=== PATIENT | female | born 1975 ===

== ENCOUNTER 2021-12-30 08:28 | Outpatient (CLI) | payer OTHER, SELFPAY ==
[2021-12-30 09:09] LABS: Hemoglobin A1C* 7.1 % (0-5.6)
[2021-12-30 16:02] LABS: Chloride* 104 mmol/L (96-114)
[2021-12-30 16:03] LABS: Potassium* 4.5 mmol/L (3.6-5.1); Sodium* 132 mmol/L (135-149)
[2021-12-30 16:05] LABS: Creatinine* 0.6 mg/dL (0.5-1.5); Estimated Glomerular Filt Rate 111 ml/min
[2021-12-30 16:06] LABS: Blood Urea Nitrogen* 18 mg/dL (5-24); Calcium* 8.7 mg/dL (8.4-10.6); Carbon Dioxide* 25 mmol/L (20-32); Glucose* 138 mg/dL (60-115)
== END 2021-12-30 08:29 | disposition home or self-care (01) ==
LOC: KYNREF 08:30
PROVIDERS: PCP Family Medicine; Visit Provider Nurse Practitioner Family
DX: Z01.818 Encounter for other preprocedural examination (principal); E11.9 Type 2 diabetes mellitus without complications
CPT/HCPCS: 36415; 80048; 83036

== ENCOUNTER 2022-01-09 07:00 | Day surgery (SDC) | payer OTHER, SELFPAY ==
[2022-01-09 07:37] LABS: Ur HCG Qualitative* Negative (Negative)
--- NOTE | 2022-01-09 08:29 | W.PM.NB ---
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 Images saved: Yes Medications given in 5ml increments after negative aspiration: Ropivicaine %: 0.5 mL: 20 Needle gauge: 22 Decadron (mg): 10 Precedex (mcg): 25 Patient tolerated procedure well: Yes Block Charges Block Charge (with Pro Fee): Brachial Plexus Use of Ultrasound Machine for Block: Yes- US Guidance/pain block
--- NOTE | 2022-01-09 10:58 | PM.ORPRC ---
Procedure Note Date of procedure: 01/09/22 Procedure: SURGEON: Romain Moreland MD ELECTRICIAN SUPERVISOR SUBSTATION: [place] PA-C PREOPERATIVE DIAGNOSIS: Left shoulder rotator cuff tear POSTOPERATIVE DIAGNOSIS: Left shoulder rotator cuff tear NAME OF OPERATION: Left shoulder arthroscopic subacromial decompression, mini open rotator cuff repair ANESTHESIA: Supraclavicular block plus general endotracheal ESTIMATED BLOOD LOSS: 5 mL COMPLICATIONS: None SPECIMENS: None DRAINS: None PREOPERATIVE ANTIBIOTICS: Ancef 2 grams INDICATIONS: The patient is a 46-year-old female with a history of left shoulder pain secondary to the above diagnoses. Despite appropriate non operative management, they continue to have symptoms. Operative intervention was recommended. The risks, benefits and expected outcomes were discussed in detail. These included but were not limited to: Infection, bleeding, injury to blood vessel or nerve, venous thromboembolism. All questions were answered to their satisfaction. PROCEDURE: A supraclavicular block was placed by Anesthesia. General anesthesia was administered. The patient was placed in the high beach chair position. The left shoulder was prepped and draped in the usual sterile fashion. The glenohumeral joint was infiltrated with 20 mL of normal saline with epinephrine. The posterior portal was established, the arthroscope was introduced. The anterior portal was established, Diagnostic arthroscopy was performed with findings as follows: The biceps and biceps anchor are intact. The anterior, posterior and superior labrum are normal. Articular surfaces on the humeral head and glenoid are normal. There are no loose bodies. There is a full-thickness tear of the supraspinatus. There is minimal deep surface fraying of the subscap which was debrided with the shaver. This does not result in high-grade partial-thickness tearing of the subscap. The arthroscope was placed in the subacromial space, the lateral portal was established. The Arthrex Apison was used to dissect the acromion free. The CA ligament was recessed off the anterior acromion. The acromioplasty was performed with the bur in the posterior portal. The bur was then placed in the lateral portal and the lateral and anterior aspect of the acromion were resected. Since An accessory anterolateral portal was placed. The subacromial/subdeltoid bursa was aggressively debrided. There is a full-thickness tear of the supraspinatus. Arthroscopic instruments were removed. The accessory anterolateral portal was extended proximally and distally, subcutaneous dissection was taken with electrocautery to the deltoid. The deltoid was divided in line with its fibers. The static retractor was placed. The subacromial/subdeltoid bursa was debrided with the Mullen scissors. The greater tuberosity was debrided to punctate bleeding bone using the arthroscopic bur. Two Arthrex BioComposite SwiveLock anchors were placed just off the articular surface. Bone was quite good and required the branch chief holes to be tapped. Both limbs of the FiberWire and fiber tape were passed using the scorpion. A fiber link was placed in the leading edge of the rotator cuff x2. We tied the 2 central FiberWire sutures over the rotator cuff. We then proceeded with a lateral row of SwiveLock anchors x 2 crossing the FiberTape and incorporating the FiberWire and fiber link into each lateral row anchor. This provides an anatomic, watertight repair of the rotator cuff. There is no tension on the repair with the shoulder at 0? abduction. The wound was irrigated with normal saline off the pump. The deltoid was repaired with an 0 Vicryl in an interrupted [id number] fashion. Subcutaneous tissues were closed with a 3-0 Vicryl. Skin was closed with a 3-0 Monocryl in a subcuticular fashion. A dry dressing, polar care and sling were applied. Sponge and needle counts were correct x2. The patient tolerated the procedure well. There were no apparent complications. They were carefully transferred to the hospital bed and taken to the postanesthesia care unit in satisfactory condition. PLAN: The patient will be discharged to home. No active range of motion of the shoulder will be allowed for 6 weeks postoperatively. They can work on active range of motion of the elbow, wrist and fingers. They will follow up in the office next week for a wound check and an AP and transscapular Y-view of the shoulder prior to being seen.
--- NOTE | 2022-01-09 11:37 | W.ANESCHARGE ---
Anesthesia Charges Start Date/Time Anesthesia Start Date: 01/09/22 Anesthesia Start Time: 09:24 Stop Date/Time Anesthesia Stop Date: 01/09/22 Anesthesia Stop Time: 11:28 Summary Emergency: No
--- NOTE | 2022-01-09 11:40 | W.ANESCHARGE ---
Anesthesia Charges Start Date/Time Anesthesia Start Date: 01/09/22 Anesthesia Start Time: 09:24 Stop Date/Time Anesthesia Stop Date: 01/09/22 Anesthesia Stop Time: 11:28 Summary Emergency: No
[2022-01-09 14:35] VITALS: BMI 35.0
--- NOTE | 2022-01-09 14:41 | SUR.PREOP ---
Medications Given by Francie Encinas. MAR not available. Celebrex 400mg PO @8:11 on 01/09/22 10mg Oxycodone 10mg ER @ 8:11 on 01/09/22 1000mg Tyelnol at 8:11 on 01/09/22. 100mcg Fentanyl at 8:24 on 01/09/22. 2mg Versed at 8:24 on 01/09/22. 1000 mg LR IV at 8:20 on 01/09/22.
--- NOTE | 2022-01-09 14:54 | SUR.PHASEII ---
Upon arrival to [facility] from PACU, notified of blood glucose of 244 taken in pacu. Pt very nauseated. MD notified and order for 4units of regular insulin obtained. Insulin administered subq in abdomen. Pt monitored and blood glucose rechecked at 1250, approximately 30 min after administration. Result was 248. Pt notes improved nausea symptoms. Pt alert, oriented and ambulating without issue. States she would like to go home. Ok'd with MD anesthesia to discharge patient home with the instruction to take her metformin as directed.
--- NOTE | 2022-01-26 11:25 | SUR.PHASEI ---
pacu times documented by this RN due to [facility]se downtime and scanned document in patient chart.
== END 2022-01-09 14:20 | disposition home or self-care (01) ==
PROVIDERS: PCP Family Medicine; Visit Provider Orthopaedic Surgery
PROC: (CPT 23412; principal; 2022-01-09 08:30)
DX: M75.122 Complete rotator cuff tear or rupture of left shoulder, not specified as traumatic (principal)
CPT/HCPCS: 29822; 29826; 23412; 01630; 64415; 76942; 81025; 87635; A9270; C1713; J0330; J1100; J1170; J2405; J2704; J2795; L3670

== ENCOUNTER 2022-02-06 21:52 | Emergency (ER) | payer OTHER, SELFPAY ==
[2022-02-06 22:27] VITALS: BP 104/79; PULSE 71; TEMP 36.3; O2SAT 96; BMI 34.8
--- NOTE | 2022-02-06 22:43 | ED.GENADULT ---
HPI - General Adult General Chief complaint: Extremity Pain/Injury, Upper Stated complaint: POST-OP ARM SWELLING,PAIN Time Seen by Provider: 02/06/22 22:14 History of Present Illness HPI narrative: Pt is a 46 year old diabetic who presents 4 weeks after rotator cuff surgery with 2-3 days of redness pain and swelling in the left affected arm laterally above the elbow. Pt was seen in follow up with ortho who offered reassurance but the redness and warmth has worsened. Pt also has had increased discomfort. No changes at the surgical site. No fever or chills. Blood sugars have been stable by report. Pt had an episode in the last week involving bumping her arm. She was seen by Ortho and offered reassurance. Related Data Home Medications Medication Instructions Recorded Confirmed fluticasone propionate 50 1 spray intranasal QDAY 12/26/21 02/06/22 mcg/actuation nasal spray,suspension (Flonase Allergy Relief) metformin 850 mg tablet 850 mg PO BID 12/26/21 02/06/22 albuterol sulfate 90 mcg/actuation g inhalation 12/30/21 02/06/22 aerosol inhaler (Ventolin HFA) blood sugar diagnostic (Accu-Chek #10 ea 12/30/21 02/06/22 Guide test strips) blood-glucose meter (Accu-Chek #1 ea 12/30/21 02/06/22 Guide Glucose Meter) dextroamphetamine-amphetamine 15 15 mg PO PRN 12/30/21 02/06/22 mg tablet dextroamphetamine-amphetamine 20 20 mg PO 12/30/21 02/06/22 mg tablet flash glucose sensor (FreeStyle #1 ea 12/30/21 02/06/22 Ibeth 2 Sensor kit) lancets (Accu-Chek Softclix #100 ea 12/30/21 02/06/22 Lancets) Previous Rx's Medication Instructions Recorded tizanidine 4 mg tablet 4 mg PO Q8H PRN muscle spasticity 12/26/21 #20 tabs hydrocodone 5 mg-acetaminophen 325 0.5 - 1 tab PO Q4-6H PRN pain #20 01/19/22 mg tablet tabs hydroxyzine pamoate 25 mg capsule 25 mg PO Q4H PRN pain #30 caps 02/01/22 (Vistaril) oxycodone-acetaminophen 5 mg-325 1 tab PO Q4-6H PRN pain #30 tabs 02/01/22 mg tablet (Percocet) Allergies Allergy/AdvReac Type Severity Reaction Status Date / Time latex Allergy Severe Verified 02/06/22 13:58 morphine Allergy Severe Verified 02/06/22 13:58 Sumatriptan Allergy Severe Uncoded 02/06/22 13:58 Metoclopramide Allergy Mild Uncoded 02/06/22 13:58 Nickel Allergy Mild Uncoded 02/06/22 13:58 Prochlorperazine Allergy Mild Uncoded 02/06/22 13:58 Review of Systems Status of ROS: Reports: 10 or more systems reviewed and unremarkable except as noted in History and below [facility] Medical History Chest pain History of anemia Type 2 diabetes mellitus Surgical History History of bladder suspension procedure History of cholecystectomy History of gastric bypass History of laparoscopy Status post arthroscopy of left shoulder Status post arthroscopy of left shoulder Social History Narrative: , 3 children. Live in [place]. 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 Non-smoker. No illicit drug use. Exercise formally. Smoking Status: Never smoker How often do you have a drink containing alcohol: monthly or less How often do you have six or more drinks on one occasion: Never AUDIT-C Alcohol total score: 1 Non-prescribed substance use: denies use Exam Narrative: Exam Narrative: EXAM GENERAL: Patient appears comfortable and well. EYES: No scleral icterus. THYROID: no thyroid nodules or thyromegaly. LYMPH: No supraclavicular or cervical lymphadenopathy. SKIN: Mild erythema over the lateral biceps area of the left arm. Mild swelling noted. Incision sites are clean and dry and well healed. EXT: No dependent lower extremity pedal edema. HEART: Regular rate and rhythm with no murmurs, rubs, or gallops. LUNGS: Clear to auscultation bilaterally with no crackles or wheezes. ABD: Soft, non tender, non distended. PSYCH: Good eye contact, speech is not pressured. Const: Vital Signs, click to edit/add: Vital Signs - 24 hr 02/06/22 22:27 Temperature 97.4 F L Pulse Rate [Left P ulse Oximeter] 71 Blood Pressure [Ri ght Upper Arm] 104/79 Pulse Oximetry 96 Oxygen Delivery Me thod Room Air Course Course Hospital Course: Patient seen and examined. CBC CRP blood cultures x2 basic metabolic panel and ultrasound ordered. Reevaluation(s) Reevaluation #1: Feeling fine. WBC normal and Metabolic panel largely unremarkable. CRP normal. Ultrasound negative for DVT. Time: 00:05 Consultations Consultation #1: Spoke with Ortho who recommended Keflex orally and outpt follow up. Vital Signs Vital signs: Initial Vital Signs Temperature 97.4 F L 02/06/22 22:27 Temperature Source Temporal Artery Scan 02/06/22 22:27 Pulse Rate 71 02/06/22 22:27 Blood Pressure 104/79 02/06/22 22:27 Blood Pressure Mean 87 02/06/22 22:27 Blood Pressure Position Sitting 02/06/22 22:27 Pulse Oximetry 96 02/06/22 22:27 Oxygen Delivery Method 02/06/22 22:27 Vital Signs Temperature 97.4 F L 02/06/22 22:27 Pulse Rate 71 02/06/22 22:27 Blood Pressure 104/79 02/06/22 22:27 Pulse Oximetry 96 02/06/22 22:27 Oxygen Delivery Method 02/06/22 22:27 Temperature 97.4 F L 02/06/22 22:27 Pulse Rate 71 02/06/22 22:27 Blood Pressure 104/79 02/06/22 22:27 Pulse Oximetry 96 02/06/22 22:27 Oxygen Delivery Method 02/06/22 22:27 Medical Decision Making MDM Narrative Medical decision making narrative: Concern is for infection or clot. I did rule out clot with Ultrasound. Labs are quite reasonable but I did speak with Ortho who recommended Keflex and follow up. Differential Diagnosis Differential Diagnosis: Local post op inflamation, cellulitis, DVT, bleeding Lab Data Labs: Lab Results 02/06/22 02/06/22 Range/Units 22:50 22:50 WBC 6.79 (4.50-11.00) K/uL RBC 4.52 (4.00-5.20) m/uL Hgb 13.0 (12.0-16.0) gm/dL Hct 39.2 (33.0-51.0) % MCV 87 (80-100) fL MCH 29 (26-34) pg MCHC 33 (32-36) gm/dL RDW Coeff of Jackelyn 12.6 (11.5-15.5) % Plt Count 290 (140-440) K/uL Neut % (Auto) 53.3 (42.0-72.0) % Lymph % (Auto) 32.1 (20-44) % [place] % (Auto) 8.2 (0.0-11.0) % Eos % (Auto) 5.4 (0.0-7.0) % Baso % (Auto) 0.4 (0.0-3.0) % Neut # (Auto) 3.61 (1.7-7.0) K/uL Lymph # (Auto) 2.18 (0.90-2.90) K/uL [place] # (Auto) 0.60 (0.00-0.90) K/UL Eos # (Auto) 0.37 (0.00-0.50) K/uL Baso # (Auto) 0.03 (0.00-0.30) K/uL Abs Immat Gran (auto) 0.04 (0.00-0.30) K/uL Sodium 134 L (135-149) mmol/L Potassium 4.2 (3.6-5.1) mmol/L Chloride 100 (96-114) mmol/L Carbon Dioxide 25 (20-32) mmol/L BUN 19 (5-24) mg/dL Creatinine 0.5 (0.5-1.5) mg/dL Estimated Creat Clear 99.91 Estimated GFR 116 ml/min Glucose 164 H (60-115) mg/dL Calcium 8.8 (8.4-10.6) mg/dL C-Reactive Protein 0.7 (0.5-1.0) mg/dL Discharge Plan Discharge Clinical Impression: Cellulitis Patient Disposition: Home, Self-Care Condition: Stable Instructions: Cellulitis (ED) Additional Instructions: Keflex as directed Continue current medications Follow up with Orthopedics Activity Level: No Restrictions Discharge Diet: Regular Prescriptions: No Action hydrocodone-acetaminophen 5-325 mg tablet 0.5 - 1 tab PO Q4-6H MDD 6 tabs per day PRN (Reason: pain) Qty: 20 0RF Rx Instructions: Minimize use. Wean off and discontinue as soon as possible. dextroamphetamine-amphetamine 20 mg tablet 20 mg PO dextroamphetamine-amphetamine 15 mg tablet 15 mg PO PRN albuterol sulfate [Ventolin HFA] 90 mcg/actuation HFA aerosol inhaler inhalation (DME) FreeStyle Ibeth 2 Sensor Kit See Rx Instructions .ROUTE .MEDSUPPLY Qty: 1 Label Comments: TEST FOUR TIMES DAILY Rx Instructions: As directed (DME) Accu-Chek Guide test strips Strip See Rx Instructions .ROUTE .MEDSUPPLY Qty: 10 Rx Instructions: As directed (DME) lancets [Accu-Chek Softclix Lancets] Misc See Rx Instructions .ROUTE .MEDSUPPLY Qty: 100 Rx Instructions: As directed (DME) blood-glucose meter [Accu-Chek Guide Glucose Meter] Misc See Rx Instructions .ROUTE .MEDSUPPLY Qty: 1 Label Comments: USE TO MONITOR BLOOD GLUCOSE Rx Instructions: As directed metformin 850 mg tablet 850 mg PO BID fluticasone propionate [Flonase Allergy Relief] 50 mcg/actuation spray,suspension 1 spray intranasal QDAY Rx Instructions: administer into each nostril tizanidine 4 mg tablet 4 mg PO Q8H PRN (Reason: muscle spasticity) Qty: 20 0RF oxycodone-acetaminophen [Percocet] 5-325 mg tablet 1 tab PO Q4-6H PRN (Reason: pain) Qty: 30 0RF hydroxyzine pamoate [Vistaril] 25 mg capsule 25 mg PO Q4H PRN (Reason: pain) Qty: 30 0RF Follow Up/Referrals: Oumar Childers MD [Primary Care Provider] - Stand Alone Forms: [facility] Info Instructions
--- NOTE | 2022-02-06 22:49 | CRLHL7_ITS ---
For Patients: As a result of the Century Cures Act, medical imaging exams and procedure reports are released immediately into your electronic medical record. You may view this report before your referring provider. If you have questions, please contact your health care provider. INDICATION: Pain and swelling postop. TECHNIQUE: Ultrasound venous duplex upper left extremity. Compression venous exam was performed using thomas-scale, color Doppler, and spectral Doppler imaging. COMPARISON: None. FINDINGS: The left internal jugular, subclavian, and axillary veins are patent with normal waveforms. The brachial, basilic, and cephalic veins are fully compressible. No soft tissue abnormalities. IMPRESSION: No DVT of the left upper extremity veins. Dictated by Popeye Morales MD @ 02/07/2022 12:18:12 AM (Electronically Signed)
[2022-02-06 22:59] LABS: Basophils Absolute Auto 0.03 K/uL (0.00-0.30); Basophils Percent Auto 0.4 % (0.0-3.0); Eosinophils Absolute Auto 0.37 K/uL (0.00-0.50); Eosinophils Percent Auto 5.4 % (0.0-7.0); Hematocrit 39.2 % (33.0-51.0); Immature Granulocytes Abs Auto 0.04 K/uL (0.00-0.30); Lymphocytes Absolute Auto 2.18 K/uL (0.90-2.90); Lymphocytes Percent Auto 32.1 % (20-44); Mean Corpuscular HGB Conc 33 gm/dL (32-36); Mean Corpuscular Hemoglobin 29 pg (26-34); Mean Corpuscular Volume 87 fL (80-100); Monocytes Percent Auto 8.2 % (0.0-11.0); Neutrophils Absolute Auto 3.61 K/uL (1.7-7.0); Neutrophils Percent Auto 53.3 % (42.0-72.0); Platelet Count* 290 K/uL (140-440); RDW Coefficient of Variation % 12.6 % (11.5-15.5); Red Blood Count 4.52 m/uL (4.00-5.20); White Blood Count* 6.79 K/uL (4.50-11.00)
[2022-02-06 23:04] LABS: Slide Review Reflex No
[2022-02-06 23:12] LABS: Chloride* 100 mmol/L (96-114); Potassium* 4.2 mmol/L (3.6-5.1); Sodium* 134 mmol/L (135-149)
[2022-02-06 23:14] LABS: Creatinine* 0.5 mg/dL (0.5-1.5); Est. Creatinine Clearance* 99.91; Estimated Glomerular Filt Rate 116 ml/min
[2022-02-06 23:15] LABS: Blood Urea Nitrogen* 19 mg/dL (5-24); Carbon Dioxide* 25 mmol/L (20-32)
[2022-02-06 23:16] LABS: Calcium* 8.8 mg/dL (8.4-10.6); Glucose* 164 mg/dL (60-115)
[2022-02-06 23:18] LABS: C Reactive Protein* 0.7 mg/dL (0.5-1.0)
[2022-02-07 00:05] VITALS: BP 108/76; PULSE 63; O2SAT 99
[2022-02-07] MEDS: HYDROCODONE-ACETAMIN 5-325 MG 1 TAB PO (00:15)
--- NOTE | 2022-02-07 00:20 | ED.NURSE ---
Area of redness on Pt L arm outlined by MD Gaming with surgical marker.
== END 2022-02-07 00:26 | disposition home or self-care (01) ==
PROVIDERS: Emergency Provider Internal Medicine; PCP Family Medicine
DX: L03.114 Cellulitis of left upper limb (principal)
CPT/HCPCS: 36415; 80048; 85025; 86140; 87040; 93971; 99283; 99284; A9270

== ENCOUNTER 2022-04-25 13:49 | Emergency (ER) | payer OTHER, SELFPAY ==
[2022-04-25 13:57] VITALS: BP 122/73; PULSE 98; RESP 18; TEMP 35.9; O2SAT 97; BMI 32.4
--- NOTE | 2022-04-25 14:28 | ED.GENADULT ---
HPI - General Adult General Time Seen by Provider: 14:29 Date Seen: 04/25/22 Chief complaint: Weakness Stated complaint: Dizzy, weak Time Seen by Provider: 04/25/22 14:16 Source: patient, RN notes reviewed and old records reviewed Mode of arrival: ambulatory Limitations: no limitations History of Present Illness HPI narrative: 46-year-old female who comes in with abrupt onset of generalized weakness, lightheadedness, palpitations, chills and flushing. Patient was in her usual state of health this morning although did find her blood sugar to be little bit low. Drink some juice and felt better. Blood sugar is been okay since then. After eating today she had abrupt onset of generalized weakness, and lightheadedness. She feels like her heart is beating fast but she denies any chest pain or chest tightness. No shortness of breath. Nausea but no vomiting. Chills and feels like her face is flushing. She denies abdominal pain, diarrhea, urinary symptoms. Has not taken anything for her symptoms. Distant history of COVID, recent shoulder surgery. Related Data Home Medications Medication Instructions Recorded Confirmed fluticasone propionate 50 1 spray intranasal QDAY 12/26/21 04/24/22 mcg/actuation nasal spray,suspension (Flonase Allergy Relief) albuterol sulfate 90 mcg/actuation 2 puff inhalation Q6-8H PRN 03/24/22 04/24/22 aerosol inhaler (Ventolin HFA) bronchospasm fluticasone 500 mcg-salmeterol 50 1 inh inhalation BID PRN 03/24/22 04/24/22 mcg/dose blistr powdr for inhalation Previous Rx's Medication Instructions Recorded tizanidine 4 mg tablet 4 mg PO Q8H PRN muscle spasticity 12/26/21 #20 tabs blood-glucose meter,continuous #1 ea 03/24/22 (Dexcom G6 Insight Leader misc) blood-glucose sensor (Dexcom G6 #9 ea 03/24/22 Sensor device) blood-glucose transmitter (Dexcom #1 ea 03/24/22 G6 Transmitter device) dextroamphetamine-amphetamine 15 15 mg PO QDAY #30 tabs 03/24/22 mg tablet dextroamphetamine-amphetamine 20 20 mg PO QDAY #30 tabs 03/24/22 mg tablet metformin 500 mg tablet,extended 1,000 mg PO QDAY #180 tabs 03/24/22 release 24hr semaglutide 0.25 mg or 0.5 mg (2 0.25 mg (0.2 mL) subcut QWEEK #1.5 03/24/22 mg/1.5 mL) subcutaneous pen mL injector (Ozempic) ondansetron 8 mg disintegrating 8 mg PO Q8H PRN nausea and 03/28/22 tablet vomiting #30 tabs polymyxin B sulfate 10,000 1 drp ophthalmic (eye) Q3H 5 days 04/24/22 unit-trimethoprim 1 mg/mL eye #10 mL drops (Polytrim) Allergies Allergy/AdvReac Type Severity Reaction Status Date / Time latex Allergy Severe Verified 04/24/22 13:31 morphine Allergy Severe Verified 04/24/22 13:31 Sumatriptan Allergy Severe Uncoded 04/24/22 13:31 Metoclopramide Allergy Mild Uncoded 04/24/22 13:31 Nickel Allergy Mild Uncoded 04/24/22 13:31 Prochlorperazine Allergy Mild Uncoded 04/24/22 13:31 PFSH PFS Medical History ADD (attention deficit disorder) History of anemia Type 2 diabetes mellitus Surgical History History of bladder suspension procedure History of cholecystectomy History of gastric bypass History of laparoscopy Status post arthroscopy of left shoulder (01/09/22) Status post arthroscopy of right shoulder (10/21/20) Family History Father Diabetes Paternal Grandmother Diabetes Social History Narrative: , 3 children. Lives in [place]. Lab/[place]. 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 Non-smoker. No illicit drug use. Cross fit Smoking Status: Never smoker Do you use any of these nicotine containing products: None How often do you have a drink containing alcohol: monthly or less How often do you have six or more drinks on one occasion: Never AUDIT-C Alcohol total score: 1 Non-prescribed substance use: denies use Exam Narrative: Exam Narrative: General: Well-developed and well-nourished, no acute distress Head: Atraumatic and normocephalic Eyes: Pupils are equal reactive, extraocular motions intact, conjunctiva clear ENT: External nose and ears are normal, posterior pharynx without erythema or exudate Neck: No midline cervical tenderness, full spontaneous range of motion the neck, trachea midline, no adenopathy Heart: Regular rate and rhythm no murmurs or thrills Lungs: Clear to auscultation bilaterally without wheezes or crackles Abdomen: Soft, nontender, nondistended with active bowel sounds Musculoskeletal: No tenderness, deformity, or edema Neurologic: Awake, alert, and oriented x3, no gross focal neurologic deficits, cranial nerves intact as tested Psych: Mood and affect are appropriate Skin: No rashes Const: Vital Signs, click to edit/add: Vital Signs - 24 hr 04/25/22 13:57 04/25/22 15:28 Temperature 96.7 F L Pulse Rate [Right Pulse Oximeter] 98 78 Respiratory Rate 18 18 Blood Pressure [Ri ght Upper Arm] 122/73 Pulse Oximetry 97 Oxygen Delivery Me thod Room Air Course Course Hospital Course: Patient seen and examined, prior records reviewed. Differential diagnosis includes but not limited to hypoglycemia, anemia, viral syndrome, electrolyte disturbance, dehydration, dysrhythmia. Patient presents with abrupt onset of near-syncope along with chills and flushing. On exam here, heart rate is little bit higher than expected, otherwise no acute findings on physical exam. No focal weakness to suggest acute CVA. No fall or injury. Labs, Zofran, fluids, Tylenol or ordered. Given abrupt onset of symptoms with chills and flushing, consider influenza or other viral syndrome. Reevaluation(s) Reevaluation #1: Labs are reassuring including normal basic panel, CBC within normal range, negative troponin. Urinalysis is pending. Chest x-ray personally reviewed and interpreted by me does not demonstrate any acute findings. COVID influenza are negative. Plan to discharge home with symptom treatment and close follow-up with primary care. No definite cause for weakness found today. Time: 16:23 Reevaluation #2: Urinalysis has 4+ ketones, bicarb slightly low but no anion gap, glucose is 112. Discussed findings with patient, discussed diagnosis and plan. Mild thrombocytopenia undetermined etiology. Time: 16:59 Vital Signs Vital signs: Initial Vital Signs Temperature 96.7 F L 04/25/22 13:57 Temperature Source Temporal Artery Scan 04/25/22 13:57 Pulse Rate 98 04/25/22 13:57 Respiratory Rate 18 04/25/22 13:57 Blood Pressure 122/73 04/25/22 13:57 Blood Pressure Mean 89 04/25/22 13:57 Blood Pressure Position Supine 04/25/22 13:57 Pulse Oximetry 97 04/25/22 13:57 Oxygen Delivery Method 04/25/22 13:57 Vital Signs Temperature 96.7 F L 04/25/22 13:57 Pulse Rate 98 04/25/22 13:57 Respiratory Rate 18 04/25/22 13:57 Blood Pressure 122/73 04/25/22 13:57 Pulse Oximetry 97 04/25/22 13:57 Oxygen Delivery Method 04/25/22 13:57 Temperature 96.7 F L 04/25/22 13:57 Pulse Rate 78 04/25/22 15:28 Respiratory Rate 18 04/25/22 15:28 Blood Pressure 122/73 04/25/22 13:57 Pulse Oximetry 97 04/25/22 13:57 Oxygen Delivery Method 04/25/22 13:57 Medical Decision Making Lab Data Labs: Lab Results 04/25/22 04/25/22 04/25/22 Range/Units 06:02 06:02 14:31 WBC (4.50-11.00) K/uL RBC (4.00-5.20) m/uL Hgb (12.0-16.0) gm/dL Hct (33.0-51.0) % MCV (80-100) fL MCH (26-34) pg MCHC (32-36) gm/dL RDW Coeff of Jackelyn (11.5-15.5) % Plt Count (140-440) K/uL Neut % (Auto) (42.0-72.0) % Lymph % (Auto) (20-44) % [place] % (Auto) (0.0-11.0) % Eos % (Auto) (0.0-7.0) % Baso % (Auto) (0.0-3.0) % Neut # (Auto) (1.7-7.0) K/uL Lymph # (Auto) (0.90-2.90) K/uL [place] # (Auto) (0.00-0.90) K/UL Eos # (Auto) (0.00-0.50) K/uL Baso # (Auto) (0.00-0.30) K/uL Abs Immat Gran (auto) (0.00-0.30) K/uL Imm/Tot Granulo (auto) % Sodium 137 (135-149) mmol/L Potassium 4.1 (3.6-5.1) mmol/L Chloride 104 (96-114) mmol/L Carbon Dioxide 19 L (20-32) mmol/L BUN 14 (5-24) mg/dL Creatinine 0.5 (0.5-1.5) mg/dL Estimated Creat Clear 99.91 Estimated GFR 116 ml/min Glucose 112 (60-115) mg/dL Calcium 9.8 (8.4-10.6) mg/dL Urine Color (Yellow) Urine Appearance (Clear) Urine pH (5.0-8.5) Ur Specific Asher (1.000-1.030) Urine Protein (Negative) Urine Glucose (UA) (Negative) Urine Ketones (Negative) Urine Blood (Negative) Urine Nitrite (Negative) Urine Bilirubin (Negative) Urine Urobilinogen (0.2-1.0) Ur Leukocyte Esterase (Negative) Urine RBC (0-2) Urine WBC (0-5) Ur Squamous Epith Cells (None-Few) Urine Bacteria (None) SARS-CoV-2 (PCR) Negative SARS-CoV-2 (Negative) Influenza Type A (PCR) Negative PCR FLU A (Negative) Influenza Type B (PCR) Negative PCR FLU B (Negative) POC Troponin I 0.00 L (0.01-0.04) ng/ml 04/25/22 04/25/22 Range/Units 15:05 16:07 WBC 7.71 (4.50-11.00) K/uL RBC 4.50 (4.00-5.20) m/uL Hgb 13.4 (12.0-16.0) gm/dL Hct 40.0 (33.0-51.0) % MCV 89 (80-100) fL MCH 30 (26-34) pg MCHC 34 (32-36) gm/dL RDW Coeff of Jackelyn 13.4 (11.5-15.5) % Plt Count 119 L (140-440) K/uL Neut % (Auto) 75.0 H (42.0-72.0) % Lymph % (Auto) 17.6 L (20-44) % [place] % (Auto) 5.1 (0.0-11.0) % Eos % (Auto) 1.6 (0.0-7.0) % Baso % (Auto) 0.4 (0.0-3.0) % Neut # (Auto) 5.80 (1.7-7.0) K/uL Lymph # (Auto) 1.40 (0.90-2.90) K/uL [place] # (Auto) 0.40 (0.00-0.90) K/UL Eos # (Auto) 0.12 (0.00-0.50) K/uL Baso # (Auto) 0.03 (0.00-0.30) K/uL Abs Immat Gran (auto) 0.02 (0.00-0.30) K/uL Imm/Tot Granulo (auto) 0.3 % Sodium (135-149) mmol/L Potassium (3.6-5.1) mmol/L Chloride (96-114) mmol/L Carbon Dioxide (20-32) mmol/L BUN (5-24) mg/dL Creatinine (0.5-1.5) mg/dL Estimated Creat Clear Estimated GFR ml/min Glucose (60-115) mg/dL Calcium (8.4-10.6) mg/dL Urine Color Yellow (Yellow) Urine Appearance Clear (Clear) Urine pH 5.5 (5.0-8.5) Ur Specific Asher >= 1.030 (1.000-1.030) Urine Protein Negative (Negative) Urine Glucose (UA) Negative (Negative) Urine Ketones 4+ A (Negative) Urine Blood Trace-lysed A (Negative) Urine Nitrite Negative (Negative) Urine Bilirubin 1+ A (Negative) Urine Urobilinogen 0.2 (0.2-1.0) Ur Leukocyte Esterase Negative (Negative) Urine RBC 0-2 (0-2) Urine WBC 0-2 (0-5) Ur Squamous Epith Cells None (None-Few) Urine Bacteria None (None) SARS-CoV-2 (PCR) (Negative) Influenza Type A (PCR) (Negative) Influenza Type B (PCR) (Negative) POC Troponin I (0.01-0.04) ng/ml Imaging Data Chest x-ray: Attestation: I have reviewed the pertinent imaging results. ECG Data Attestation: I personally reviewed and interpreted this ECG as follows: Prior ECG tracings: not available for review Interpretation: Performed at 3:11 p.m. demonstrates sinus rhythm rate 73, no acute ST elevations or depressions, normal intervals, normal axis, pr QTC 427, marked OR 164. No prior for comparison. Discharge Plan Discharge Clinical Impression: Chills, Near syncope Patient Disposition: Home, Self-Care Condition: Stable Instructions: Near Syncope (ED) Additional Instructions: Plenty fluids and rest. Follow-up with your primary care doctor this week. Continue monitoring blood sugars closely. Activity Level: No Restrictions Prescriptions: No Action albuterol sulfate [Ventolin HFA] 90 mcg/actuation HFA aerosol inhaler 2 puff inhalation Q6-8H PRN (Reason: bronchospasm) fluticasone propionate [Flonase Allergy Relief] 50 mcg/actuation spray,suspension 1 spray intranasal QDAY Rx Instructions: administer into each nostril tizanidine 4 mg tablet 4 mg PO Q8H PRN (Reason: muscle spasticity) Qty: 20 0RF fluticasone propion-salmeterol 500-50 mcg/dose blister with device 1 inh inhalation BID PRN dextroamphetamine-amphetamine 15 mg tablet 15 mg PO QDAY Qty: 30 0RF dextroamphetamine-amphetamine 20 mg tablet 20 mg PO QDAY Qty: 30 0RF metformin 500 mg tablet extended release 24hr 1,000 mg PO QDAY Qty: 180 3RF Ozempic 0.25 mg or 0.5 mg(2 mg/1.5 mL) pen injector 0.25 mg subcut QWEEK Qty: 1.5 1RF Rx Instructions: for 4 doses then increase to 0.5 (DME) Dexcom G6 Sensor Device See Rx Instructions .Route Qty: 9 3RF Rx Instructions: Change every 10 days (DME) Dexcom G6 Insight Leader Misc See Rx Instructions .Route Qty: 1 0RF Rx Instructions: As directed (DME) Dexcom G6 Transmitter Device See Rx Instructions .Route Qty: 1 3RF Rx Instructions: Change every 3 months polymyxin B sulf-trimethoprim [Polytrim] 10,000 unit- 1 mg/mL drops 1 drp ophthalmic (eye) Q3H 5 Days Qty: 10 0RF Rx Instructions: while awake; do not exceed 6 doses in 24 hours ondansetron 8 mg tablet,disintegrating 8 mg PO Q8H PRN (Reason: nausea and vomiting) Qty: 30 1RF Follow Up/Referrals: Oumar Childers MD [Staff Physician] - Stand Alone Forms: MyHealth Info Instructions
--- OUTSIDE RECORDS SUMMARY | 2022-04-25 14:39 | XMS_ITS | Clinical Summary ---
:1975 Author Organization [facility] [place] [address] Care Team Providers Name Role Phone Card, Jeff Brantley MD Unavailable Unavailable Allergies Active Allergy Reactions Severity Noted Date Comments Avocado Hives Bee Venom Protein (Honey Bee) Edema, Hives High 03/22/2016 Prochlorperazine 11/17/2007 Latex Hives, Rash High 01/13/2011 Rash, Hives, s kin peels off Morphine Rash, Edema Unlisted Allergen (Include Hives C OCONUT Detail In Comments) Sumatriptan 11/17/2007 Medications Medication Sig Dispensed Refills Start Date End Date Status albuterol HFA Inhale 2 Puffs 0 06/09/2015 Active (PRO-AIR,VENTOLIN,PROV by mouth every 6 ENTIL) 90 hours if needed. mcg/actuation inhaler albuterol-ipratropium 1 neb as needed 0 06/09/2015 Active (DUONEB) (2.5-0.5 mg) in 3 mL NEBULIZATION solution EPINEPHRine, racemic, 1 neb as needed 0 06/09/2015 Active (S-2) 2.25 % nebulizer solution fluticasone-salmeterol Inhale 1 Puff by 3 Inhaler 3 06/09/2015 Active (ADVAIR DISKUS) 500-50 mouth 2 times mcg/Dose diskus daily. inhalerIndications: Reactive airways dysfunction syndrome, severe persistent, with acute exacerbation (HC) budesonide (PULMICORT) Inhale 2 mL via 0 06/16/2015 Active 0.5 mg/2 mL neb a nebulizer 2 suspension times daily. NebulizerIndications: Nebulizer, neb 1 Device 0 06/16/2015 Active Reactive airways kit, neb cup, dysfunction syndrome tubing and mask. with acute Duration of need exacerbation (HC) 99 months. medication order oximeter 1 Device 0 06/16/2015 Ac tive composerIndications: Reactive airways dysfunction syndrome with acute exacerbation (HC) metFORMIN (GLUCOPHAGE Take 750 mg by 0 11/21/2019 Active XR) 750 mg mouth once Extended-Release daily. tablet multivitamins with Take 1 Tab by 0 Active minerals tablet mouth. blood sugar diagnostic by Not 0 10/22/2019 Active (FREESTYLE LITE Applicable STRIPS) strip route. fluticasone (50 mcg USE TWO SPRAYS 0 07/21/2019 Active per actuation) nasal IN EACH NOSTRIL solution (FLONASE) EVERY DAY FREESTYLE RENEE 14 DAY 1 EACH 4 TIMES A 0 07/22/2019 Active READER misc DAY atomoxetine Take 1 Capsule 0 10/18/2020 Ac tive (Strattera) 25 mg (25 mg) by mouth capsule once daily. methylphenidate HCl Take 1 Tablet 30 Tablet 0 12/17/2020 Active (Concerta) 36 mg (36 mg) by mouth Extended-Release once daily. tabletIndications: Attention deficit hyperactivity disorder (ADHD), unspecified ADHD type metFORMIN (GLUCOPHAGE) Take 1 Tablet 180 tablet. 3 10/22/2020 Active 1,000 mg (1,000 mg) by tabletIndications: mouth 2 times Type 2 diabetes daily with mellitus with meals. hyperglycemia, without long-term current use of insulin (HC) atorvastatin (LIPITOR) TAKE 1 TABLET BY 30 Tablet 0 11/24/2021 Active 20 mg MOUTH EVERYDAY tabletIndications: AT BEDTIME Mixed hyperlipidemia Active Problems Problem Noted Date Type 2 diabetes mellitus 03/15/2020 Reactive airways dysfunction syndrome without complica tion 12/14/2015 Resolved Problems Problem Noted Date Resolved Date Reactive airways dysfunction syndrome with acute 06/09/2015 12/14/2015 exacerbation Immunizations Name Administration Dates Next Due Hepatitis B (Adult) 02/20/2008, 03/20/2007 Hepatitis B (Peds) 06/11/1999 Influenza Virus, Unspecified 04/16/2018, 04/10/2016, 014, 05/06/2013, 03/28/2011, 04/04/2010, 03/04/2009 Influenza, IIV3 (Age >=3 years) 03/24/2015, 03/11/2007 MMR 03/20/2007 Td (Age >=7 Years) 06/11/2005 Tdap 03/30/2011 Family History Medical History Relation Name Comments Diabetes Father Diabetes Maternal Grandfather Cancer-breast Maternal Grandmother Cancer-pancreatic Maternal Grandmother Diabetes Maternal Grandmother Diabetes Mother Diabetes Paternal Grandfather Diabetes Paternal Grandmother Diabetes Sister ADD / ADHD Son Relation Name Status Comments Father Alive Maternal Grandfather Maternal Grandmother Mother Alive Paternal Grandfather Paternal Grandmother Sister Alive Son Social History Tobacco Use Types Packs/Day Years Used Date Never Smoker Smokeless Tobacco: Never Used Tobacco Cessation: Counseling Given: Yes Alcohol Use Standard Drinks/Week Comments Yes 0 (1 standard drink = 0.6 oz pure alcoho l) Alcohol Habits Answer Date Recorded How often do you have a drink containing alcohol? 2-4 times a month 03/15/2020 How many drinks containing alcohol do you have on a Not aske d typical day when you are drinking? How often do you have six or more drinks on one Not asked occasion? Comment: Not asked Sex Assigned at Date Recorded Not on file Obstetrics History Para Term AB IAB SAB Ectopic Multiple Living Live Births 0 0 0 0 0 0 0 0 Last Filed Vital Signs Vital Sign Reading Time Taken Comments Blood Pressure 120/77 10/18/2020 2:11 PM CDT Pulse 83 10/18/2020 2:11 PM CDT Temperature 37.1 ??C (98.8 ??F) 10/18/2020 2:11 PM CDT Respiratory Rate 18 12/14/2015 10:19 AM CDT Oxygen Saturation 98% 10/18/2020 2:11 PM CDT Inhaled Oxygen Concentration - - Weight 84.9 kg (187 lb 3.2 oz) 10/18/2020 2:11 PM CDT Height 152.4 cm (5') 10/18/2020 2:11 PM CDT Body Mass Index 36.56 10/18/2020 2:11 PM CDT Plan of Treatment Health Maintenance Due Date Last Done Comments Pneumococcal series for age 19-64 1980 (1 - PCV) Hepatitis C screening for age 0712/12/1992 18-79 Colonoscopy through age 75 12/13/2019 Mammogram for age 45-75 12/13/2019 COVID-19 vaccine series (3 - 01/28/2021 12/03/2020, 021 Booster for Pfizer series) Depression screening for age 12+ 03/15/2021 03/15/2020, 10/2019 Tetanus booster 03/30/2021 03/30/2011, 06/11/2005 BMI (ht and wt on same day) for 10/18/2021 10/18/2020, 10/2019, age 18+ 12/14/2015, Additional history exists Influenza for age 9-49 02/09/2022 04/16/2018, 04/10/2016, 03/24/2015, Additional history exists Pap test for age 21-65 10/17/2024 10/17/2021, 10/17/2021 Lipids for age 45-75 10/18/2025 10/18/2020 Tdap Completed 03/30/2011 Results Not on filefrom Last 3 Months Insurance Payer Benefit Plan / Subscriber ID Effective Phone Address T ype Group Dates [employer] WORK[employer] WC RISK [phone]-Pre [address]ATIVE sent [id number] [place] [address] [employer] WORK[employer] COMP [id number] 2014-Pre CLAUDIA COMP sent [phone] [address] HEALTH [id number] 2019-Prese [address] [place] [address] [phone] (Work) Zoila [place] Workers Comp Self [id number] (Home) [place], [place] [phone] (Work) Care Teams Recreation Therapy Director Relationship Specialty Start Date End Date Card, Jeff Brantley MD 06/07/15
[2022-04-25 15:15] LABS: Basophils Absolute Auto 0.03 K/uL (0.00-0.30); Basophils Percent Auto 0.4 % (0.0-3.0); Eosinophils Absolute Auto 0.12 K/uL (0.00-0.50); Eosinophils Percent Auto 1.6 % (0.0-7.0); Hemoglobin* 13.4 gm/dL (12.0-16.0); Immature Granulocytes Abs Auto 0.02 K/uL (0.00-0.30); Immature Granulocytes Pct Auto 0.3 %; Lymphocytes Percent Auto 17.6 % (20-44); Mean Corpuscular HGB Conc 34 gm/dL (32-36); Mean Corpuscular Hemoglobin 30 pg (26-34); Mean Corpuscular Volume 89 fL (80-100); Monocytes Percent Auto 5.1 % (0.0-11.0); Platelet Count* 119 K/uL (140-440); RDW Coefficient of Variation % 13.4 % (11.5-15.5); White Blood Count* 7.71 K/uL (4.50-11.00)
[2022-04-25 15:18] LABS: Slide Review Reflex No
[2022-04-25 15:28] VITALS: PULSE 78; RESP 18
[2022-04-25 15:31] LABS: Chloride* 104 mmol/L (96-114); Potassium* 4.1 mmol/L (3.6-5.1); Sodium* 137 mmol/L (135-149)
[2022-04-25 15:34] LABS: Blood Urea Nitrogen* 14 mg/dL (5-24); Calcium* 9.8 mg/dL (8.4-10.6); Carbon Dioxide* 19 mmol/L (20-32); Creatinine* 0.5 mg/dL (0.5-1.5); Est. Creatinine Clearance* 99.91; Estimated Glomerular Filt Rate 116 ml/min; Glucose* 112 mg/dL (60-115)
--- NOTE | 2022-04-25 15:37 | CRLHL7_ITS ---
For Patients: As a result of the Century Cures Act, medical imaging exams and procedure reports are released immediately into your electronic medical record. You may view this report before your referring provider. If you have questions, please contact your health care provider. INDICATION: Weakness TECHNIQUE: Single view chest. FINDINGS: The lungs are clear. The heart, mediastinum and pulmonary vessels are of normal size. There is no evidence of pleural disease. IMPRESSION: Negative chest. Dictated by Sonia Hunt MD @ 04/25/2022 5:13:57 PM (Electronically Signed)
[2022-04-25 15:53] LABS: PCR FLU A Negative PCR FLU A (Negative); PCR FLU B Negative PCR FLU B (Negative)
[2022-04-25 16:00] LABS: SARS PCR* Negative SARS-CoV-2 (Negative)
[2022-04-25 16:29] LABS: Appearance Urine Clear (Clear); Bilirubin Urine 1+ (Negative); Blood Urine Trace-lysed (Negative); Color Urine Yellow (Yellow); Glucose Urine Negative (Negative); Ketones Urine 4+ (Negative); Leukocyte Esterase Urine Negative (Negative); Nitrite Urine Negative (Negative); Protein Urine Negative (Negative); Specific Gravity Urine >= 1.030 (1.000-1.030); Urobilinogen Urine 0.2 (0.2-1.0); pH Urine 5.5 (5.0-8.5)
[2022-04-25 16:36] LABS: RBC Urine 0-2 (0-2); WBC Urine 0-2 (0-5)
== END 2022-04-25 17:22 | disposition home or self-care (01) ==
PROVIDERS: Emergency Provider Family Medicine; PCP Family Medicine
DX: R68.83 Chills (without fever) (principal); R55 Syncope and collapse
CPT/HCPCS: 36415; 71045; 80048; 81001; 85025; 87631; 93005; 99284

== ENCOUNTER 2022-07-06 18:38 | Emergency (ER) | payer OTHER, SELFPAY ==
[2022-07-06 19:12] VITALS: BP 105/66; PULSE 82; RESP 18; TEMP 36.3; O2SAT 98; BMI 30.3
--- NOTE | 2022-07-06 20:38 | CRLHL7_ITS ---
For Patients: As a result of the Century Cures Act, medical imaging exams and procedure reports are released immediately into your electronic medical record. You may view this report before your referring provider. If you have questions, please contact your health care provider. DATE: 07/06/2022. CLINICAL HISTORY: Left neck pain and swelling. TECHNIQUE: Standard helical CT image acquisition of the neck up to the skull base after bolus intravenous contrast enhancement. Multiplanar reconstructed images performed on a separate workstation. COMPARISON: None available. FINDINGS: The nasopharynx, oropharynx, oral cavity, hypopharynx, and larynx are within normal limits. No evidence of exophytic mass. The airway is patent throughout. No CT evidence of pathologic cervical lymph nodes by size criteria. The major salivary glands are within normal limits. The spaces of the suprahyoid and infrahyoid neck within normal limits. The thyroid gland is within normal limits. The visualized lung apices are unremarkable. Mild cervical spondylosis. IMPRESSION: No evidence of significant pathology within the soft tissues of the neck. Please note that all CT scans at this facility use dose modulation, iterative reconstruction, and/or weight-based dosing when appropriate to reduce radiation dose to as low as reasonably achievable. Dictated by Elan Villegas MD @ 07/06/2022 10:20:44 PM (Electronically Signed)
[2022-07-06 20:53] LABS: Basophils Absolute Auto 0.02 K/uL (0.00-0.30); Basophils Percent Auto 0.3 % (0.0-3.0); Eosinophils Absolute Auto 0.09 K/uL (0.00-0.50); Eosinophils Percent Auto 1.3 % (0.0-7.0); Hematocrit 41.3 % (33.0-51.0); Hemoglobin* 13.7 gm/dL (12.0-16.0); Immature Granulocytes Abs Auto 0.01 K/uL (0.00-0.30); Immature Granulocytes Pct Auto 0.1 %; Lymphocytes Absolute Auto 2.15 K/uL (0.90-2.90); Lymphocytes Percent Auto 31.4 % (20-44); Mean Corpuscular HGB Conc 33 gm/dL (32-36); Mean Corpuscular Hemoglobin 30 pg (26-34); Mean Corpuscular Volume 91 fL (80-100); Monocytes Percent Auto 6.4 % (0.0-11.0); Neutrophils Absolute Auto 4.13 K/uL (1.7-7.0); Neutrophils Percent Auto 60.5 % (42.0-72.0); Platelet Count* 316 K/uL (140-440); RDW Coefficient of Variation % 13.6 % (11.5-15.5); Red Blood Count 4.52 m/uL (4.00-5.20); White Blood Count* 6.84 K/uL (4.50-11.00)
[2022-07-06 20:54] LABS: Slide Review Reflex No
[2022-07-06 21:05] LABS: Albumin* 4.6 g/dL (3.3-5.0); Chloride* 108 mmol/L (96-114); Sodium* 139 mmol/L (135-149)
[2022-07-06 21:06] LABS: Potassium* 4.2 mmol/L (3.6-5.1)
[2022-07-06 21:08] LABS: Bilirubin Total* 0.6 mg/dL (0.1-1.5); Creatinine* 0.9 mg/dL (0.5-1.5); Est. Creatinine Clearance* 55.51; Estimated Glomerular Filt Rate 79 ml/min
[2022-07-06 21:09] LABS: Alanine Aminotransferase* 21 U/L (4-35); Alkaline Phosphatase* 64 U/L (40-150); Aspartate Amino Transferase* 22 U/L (12-35); Blood Urea Nitrogen* 19 mg/dL (5-24); Calcium* 9.2 mg/dL (8.4-10.6); Carbon Dioxide* 21 mmol/L (20-32); Glucose* 101 mg/dL (60-115); Total Protein* 7.9 g/dL (6.0-8.3)
[2022-07-06 21:12] LABS: C Reactive Protein* < 0.5 mg/dL (0.5-1.0)
[2022-07-06 21:32] LABS: Erythrocyte SedimentationRate* 13 mm/hr (2-20)
[2022-07-06 22:00] VITALS: O2SAT 98
--- NOTE | 2022-07-06 22:10 | ED_ITS ---
HPI - General Adult General Date Seen: 07/06/22 Chief complaint: Ear/Nose/Throat Problem Stated complaint: Left head pain, neck swelling Time Seen by Provider: 07/06/22 20:31 Source: patient, RN notes reviewed and old records reviewed Mode of arrival: ambulatory Limitations: no limitations History of Present Illness HPI narrative: Patient is a 46-year-old female that is coming in with severe left neck pain. She denies any trauma. It started out is more of ear pain earlier today. She did go to urgent care. She states they thought maybe she had prodromal shingles, was not started on anything. The pain felt like it was more in the ear canal. It is moving into her left face and left face feels tingly, the skin actually feels hot. She is having pain behind the left ear. The pain is in the left neck and she can feel pain with swallowing inside the left neck area. She has had no fevers or chills. No visual changes but states the left eye just maybe feels a little dry. Pain is not triggered by opening her mouth or yawning or eating. It is throughout this left jaw and face area in the left ear behind the left ear and into the left neck. She has a history of shingles but that was 15 years ago. Teeth are not bothering. Related Data Home Medications Medication Instructions Recorded Confirmed fluticasone propionate 50 1 spray intranasal QDAY 12/26/21 07/06/22 mcg/actuation nasal spray,suspension (Flonase Allergy Relief) albuterol sulfate 90 mcg/actuation 2 puff inhalation Q6-8H PRN 03/24/22 07/06/22 aerosol inhaler (Ventolin HFA) bronchospasm fluticasone 500 mcg-salmeterol 50 1 inh inhalation BID PRN 03/24/22 07/06/22 mcg/dose blistr powdr for inhalation metformin 500 mg tablet,extended tab PO 07/06/22 07/06/22 release 24 hr Previous Rx's Medication Instructions Recorded blood-glucose meter,continuous #1 ea 03/24/22 (Dexcom G6 Contract Technical Writer) blood-glucose sensor (Dexcom G6 #9 ea 03/24/22 Sensor device) blood-glucose transmitter (Dexcom #1 ea 03/24/22 G6 Transmitter device) metformin 500 mg tablet,extended 1,000 mg PO QDAY #180 tabs 03/24/22 release 24hr ondansetron 8 mg disintegrating 8 mg PO Q8H PRN nausea and 03/28/22 tablet vomiting #30 tabs progesterone micronized 100 mg 100 mg PO QHS #90 caps 05/12/22 capsule dextroamphetamine-amphetamine 15 15 mg PO QDAY #30 tabs 06/09/ mg tablet dextroamphetamine-amphetamine 15 15 mg PO QDAY #30 tabs 06/09/22 mg tablet (Adderall) dextroamphetamine-amphetamine 20 20 mg PO QDAY #30 tabs 30 mg tablet dextroamphetamine-amphetamine 20 20 mg PO QDAY #30 tabs 06/09/22 mg tablet (Adderall) semaglutide 2 mg/dose (8 mg/3 mL) 2 mg (0.75 mL) subcut QWEEK #3 mL 06/16/22 subcutaneous pen injector tizanidine 4 mg tablet 4 mg PO Q8H PRN muscle spasticity 06/16/22 #30 tabs Allergies Allergy/AdvReac Type Severity Reaction Status Date / Time latex Allergy Severe Verified 07/06/22 14:33 morphine Allergy Severe Verified 07/06/22 14:33 Sumatriptan Allergy Severe Uncoded 07/06/22 14:33 Metoclopramide Allergy Mild Uncoded 07/06/22 14:33 Nickel Allergy Mild Uncoded 07/06/22 14:33 Prochlorperazine Allergy Mild Uncoded 07/06/22 14:33 Review of Systems Status of ROS: Reports: 6 or more systems reviewed and unremarkable except as noted in History and below [facility] Medical History (Updated 07/06/22 @ 22:38 by Mary Chery MD) ADHD, predominantly inattentive type Greater trochanteric bursitis of right hip History of anemia Perimenopausal symptoms MERCEDES (stress urinary incontinence, female) Type 2 diabetes mellitus without complication, with no history of insulin use Surgical History (Updated 05/12/22 @ 16:08 by Aminta Razo MD) History of appendectomy History of bladder suspension procedure History of cholecystectomy History of endometrial ablation (11/08/21) History of gastric bypass History of laparoscopy (~1990) Status post arthroscopy of left shoulder (01/09/22) Status post arthroscopy of right shoulder (10/21/20) Family History Father Diabetes Paternal Grandmother Diabetes Social History Narrative: , 3 children. Lives in [place]. 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 Non-smoker. No illicit drug use. Cross fit Smoking Status: Never smoker Do you use any of these nicotine containing products: None How often do you have a drink containing alcohol: monthly or less How often do you have six or more drinks on one occasion: Never AUDIT-C Alcohol total score: 1 Non-prescribed substance use: denies use Exam Const: Vital Signs, click to edit/add: Vital Signs - 24 hr 07/06/22 19:12 Temperature 97.3 F L Pulse Rate [Right Pulse Oximeter] 82 Respiratory Rate 18 Blood Pressure [Ri ght Upper Arm] 105/66 Pulse Oximetry 98 Oxygen Delivery Me thod Room Air Documenting provider has reviewed patient's vital signs: yes Common normals: no apparent distress, average body habitus, oriented x3, no limitations, healthy appearing, alert and well nourished General appearance: cooperative, comfortable, well kempt and well developed HENMT: Common normals: normocephalic, head/scalp atraumatic, hearing grossly normal bilaterally, external ears normal, EAC's normal, TM's normal bilaterally, external nose normal, nasal mucous membranes and turbinates normal, moist oral mucous membranes, oropharynx normal, dentition normal and gingiva normal Head and scalp: normocephalic and atraumatic Nose: external nose normal and nasal mucous membranes and turbinates normal External ear: external ears normal External auditory canal: EAC's normal Tympanic membrane: TM's normal bilaterally Other: She has some pain when I palpate over the tragus but really no pain over the TMJ joint as a have her open and close her mouth. Visually her face and neck are symmetric. I see no skin changes. She seems to have normal light touch sensation throughout that side of her face. She does complain of pain when I palpate in the left neck area but there is no cervical adenopathy, no thyromegaly masses or nodules, no neck masses. She has tenderness when I palpate over the carotid an even over the sternocleidomastoid muscle. It does not seem to have a specific pattern or distribution other than generally in the left neck and left face area. Eye: Common normals: PERRL, EOMs intact bilaterally, conjunctivae normal and no scleral icterus Conjunctiva: conjunctiva(e) normal Pupil: PERRL Neck & C-Spine: Common normals: full ROM, no lymphadenopathy, supple, no meningeal signs, no JVD and thyroid normal Thyroid: thyroid normal Resp: Common normals: normal respiratory effort, no retractions, no use of accessory muscles and clear to auscultation bilaterally Auscultation: clear to auscultation bilaterally Cardio: Common normals: no JVD, regular rate, regular rhythm, S1 normal heart sound, S2 normal heart sound, no gallops, no clicks and no murmurs Rate: regular rate Rhythm: regular rhythm Heart sounds: S1 normal and S2 normal Neuro: Common normals: oriented x3 Sensorium/orientation: alert Meningeal signs: no meningeal signs Psych: Appearance: well kempt Course Course Hospital Course: We will stab lotion IV, proceed with soft tissue neck CT. She will have appropriate screening labs done. Will try IV Toradol 15 mg. Have reviewed with her that certainly prodromal shingles can present with pain but this seems to be a broader distribution than what I would expect. There are pain conditions that can stem from the neck but would be a diagnosis of exclusion in my opinion. We need to rule out about an intra neck process, possible early infection. I will see if I can help define the treatable etiology with this CT and lab work. Reevaluation(s) Reevaluation #1: Reviewed with patient that her CT is not showing any acute pathology, her labs are completely normal. I did re-evaluate her ear, there are no changes, I see no evidence of infection. We did discuss pain syndromes that sometimes can develop in the head and neck. The Toradol did help, she tried ice as well which helped. This time will send her with Toradol from [employer], she states she has some tizanidine at home from a prior time. I do think she could try that. She wanted to know what next step would be and at this point I would recommend having evaluation with ENT. Time: 22:32 Vital Signs Vital signs: Initial Vital Signs Temperature 97.3 F L 07/06/22 19:12 Temperature Source Temporal Artery Scan 07/06/22 19:12 Pulse Rate 82 07/06/22 19:12 Respiratory Rate 18 07/06/22 19:12 Blood Pressure 105/66 07/06/22 19:12 Blood Pressure Mean 79 07/06/22 19:12 Blood Pressure Position Sitting 07/06/22 19:12 Pulse Oximetry 98 07/06/22 19:12 Oxygen Delivery Method 07/06/22 19:12 Vital Signs Temperature 97.3 F L 07/06/22 19:12 Pulse Rate 82 07/06/22 19:12 Respiratory Rate 18 07/06/22 19:12 Blood Pressure 105/66 07/06/22 19:12 Pulse Oximetry 98 07/06/22 19:12 Oxygen Delivery Method 07/06/22 19:12 Temperature 97.3 F L 07/06/22 19:12 Pulse Rate 82 07/06/22 19:12 Respiratory Rate 18 07/06/22 19:12 Blood Pressure 105/66 07/06/22 19:12 Pulse Oximetry 98 07/06/22 19:12 Oxygen Delivery Method 07/06/22 19:12 Medical Decision Making Lab Data Lab results reviewed: Yes I reviewed the patient's lab results Labs: Lab Results 07/06/22 07/06/22 07/06/22 Range/Units 20:47 20:47 20:47 WBC 6.84 (4.50-11.00) K/uL RBC 4.52 (4.00-5.20) m/uL Hgb 13.7 (12.0-16.0) gm/dL Hct 41.3 (33.0-51.0) % MCV 91 (80-100) fL MCH 30 (26-34) pg MCHC 33 (32-36) gm/dL RDW Coeff of Jackelyn 13.6 (11.5-15.5) % Plt Count 316 (140-440) K/uL Neut % (Auto) 60.5 (42.0-72.0) % Lymph % (Auto) 31.4 (20-44) % [place] % (Auto) 6.4 (0.0-11.0) % Eos % (Auto) 1.3 (0.0-7.0) % Baso % (Auto) 0.3 (0.0-3.0) % Neut # (Auto) 4.13 (1.7-7.0) K/uL Lymph # (Auto) 2.15 (0.90-2.90) K/uL [place] # (Auto) 0.40 (0.00-0.90) K/UL Eos # (Auto) 0.09 (0.00-0.50) K/uL Baso # (Auto) 0.02 (0.00-0.30) K/uL ESR 13 (2-20) mm/hr Sodium 139 (135-149) mmol/L Potassium 4.2 (3.6-5.1) mmol/L Chloride 108 (96-114) mmol/L Carbon Dioxide 21 (20-32) mmol/L BUN 19 (5-24) mg/dL Creatinine 0.9 (0.5-1.5) mg/dL Estimated Creat Clear 55.51 Estimated GFR 79 ml/min Glucose 101 (60-115) mg/dL Calcium 9.2 (8.4-10.6) mg/dL Total Bilirubin 0.6 (0.1-1.5) mg/dL AST 22 (12-35) U/L ALT 21 (4-35) U/L Alkaline Phosphatase 64 (40-150) U/L C-Reactive Protein < 0.5 L (0.5-1.0) mg/dL Total Protein 7.9 (6.0-8.3) g/dL Albumin 4.6 (3.3-5.0) g/dL Imaging Data CT- Other: Attestation: I have reviewed the pertinent imaging results. Radiologist's impression: Patient: FRANCIA CADENA Facility:?[facility] Patient ID:?[id number] Site Patient ID:?[id number]. Site :?1975 Study:?CT ST Neck W/ ISOVUE 370-07/06/2022 9:57:55 PM Ordering Physician:Sae Hernandez Preliminary Report: Normal epiglottis. Airway is patent. No abnormal retropharyngeal soft tissue thickening or fluid collection. Symmetric appearing palatine tonsils without fluid collection. No lymphadenopathy. Dictated by Eleuterio Hawkins MD @ 07/06/2022 10:15:00 PM Read by:?Eleuterio Hawkins MD @ 07/06/2022 22:15:05 Critical Care Time Critical Care Time Critical Care Time: No Discharge Plan Discharge Clinical Impression: Neck pain on left side, Acute otalgia Patient Disposition: Home, Self-Care Condition: Stable Instructions: Earache (ED), Acute Neck Pain (ED) Additional Instructions: Can use Toradol baseline for pain, supplement with Tylenol 1000 mg up to 4 times a day. If ice seems to help, certainly can use this. Should you develop a rash, seek re-evaluation. If your symptoms are progressive, worsening, develops new symptoms that are concerning to you, please be re-evaluated. Otherwise, next step I think might be to see ENT for further consultation regarding this. Activity Level: Activity as Tolerated Prescriptions: No Action albuterol sulfate [Ventolin HFA] 90 mcg/actuation HFA aerosol inhaler 2 puff inhalation Q6-8H PRN (Reason: bronchospasm) progesterone micronized 100 mg capsule 100 mg PO QHS Qty: 90 0RF metformin 500 mg tablet extended release 24 hr PO fluticasone propionate [Flonase Allergy Relief] 50 mcg/actuation spray,suspension 1 spray intranasal QDAY Rx Instructions: administer into each nostril fluticasone propion-salmeterol 500-50 mcg/dose blister with device 1 inh inhalation BID PRN metformin 500 mg tablet extended release 24hr 1,000 mg PO QDAY Qty: 180 3RF (DME) Dexcom G6 Sensor Device See Rx Instructions .Route Qty: 9 3RF Rx Instructions: Change every 10 days (DME) Dexcom G6 Contract Technical Writer Misc See Rx Instructions .Route Qty: 1 0RF Rx Instructions: As directed ([facility]) Dexcom G6 Transmitter Device See Rx Instructions .Route Qty: 1 3RF Rx Instructions: Change every 3 months semaglutide 2 mg/dose (8 mg/3 mL) pen injector 2 mg subcut QWEEK Qty: 3 1RF tizanidine 4 mg tablet 4 mg PO Q8H PRN (Reason: muscle spasticity) Qty: 30 0RF ondansetron 8 mg tablet,disintegrating 8 mg PO Q8H PRN (Reason: nausea and vomiting) Qty: 30 1RF dextroamphetamine-amphetamine 15 mg tablet 15 mg PO QDAY Qty: 30 0RF dextroamphetamine-amphetamine [Adderall] 15 mg tablet 15 mg PO QDAY Qty: 30 0RF dextroamphetamine-amphetamine 20 mg tablet 20 mg PO QDAY Qty: 30 0RF dextroamphetamine-amphetamine [Adderall] 20 mg tablet 20 mg PO QDAY Qty: 30 0RF Follow Up/Referrals: Misael Hobbs MD [Primary Care Provider] - Stand Alone Forms: [facility] Info Instructions
[2022-07-06 22:35] VITALS: BP 115/74; PULSE 79; RESP 18; TEMP 36.7; O2SAT 98
== END 2022-07-06 22:48 | disposition home or self-care (01) ==
PROVIDERS: Emergency Provider Family Medicine; PCP Family Medicine
DX: H92.02 Otalgia, left ear (principal); M54.2 Cervicalgia
CPT/HCPCS: 36415; 70491; 80053; 85025; 85651; 86140; 94761; 99284; Q9967

== ENCOUNTER 2022-09-15 10:18 | Outpatient (CLI) | payer OTHER, SELFPAY | END 2022-09-15 10:19 | disposition home or self-care (01) | LOC: NFLDREF 10:19 | PROVIDERS: PCP Family Medicine; Visit Provider Family Medicine | DX: E78.5 Hyperlipidemia, unspecified (principal) | CPT/HCPCS: 80061 ==

== ENCOUNTER 2022-09-15 13:45 | Outpatient (RCR) | payer OTHER, SELFPAY ==
--- NOTE | 2022-01-30 09:29 | PT.OPEX ---
PT [facility] Outpatient Eval PT [facility] Outpatient Eval Start: 01/30/22 07:19 Freq: Status: Active Protocol: Document 01/30/22 09:24 SAMANTA (Rec: 01/30/22 09:28 SAMANTA [id number]) E-signed By Cassandra Chaudhry, PT Physical Therapy Outpatient Evaluation Insurance Information Insurance Name [employer] Medical Diagnosis Lt Shoulder Scope/Mini open cuff repair/SAD 01/09/22 Treating Diagnosis S/p Lt shoulder RCR and SAD 01/09/22, impaired Lt shoulder ROM , impaired Lt shoulder strength, impaired functional use of Lt UE. Current restrictions of No AROM for 6 weeks, in sling. Subjective Subjective [place] reports having zee shoulder pain for the past 2-3 years. I thought it was just sore/achiness. We tried injections first with both. I had my Rt RCR done 10/21/20. I did not have as much pain with that side. Able to work out right up to the day before surgery. This one I heard a pop. I had so much pain and was loosing binder layer strength. I wanted to wait out the Summer, but couldn't make it. Had surgery 3 weeks ago today. I use ice about every 2 hours. I bring it to work, I started that last week, as Daphney gave me approval. 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 Restriction of Lt arm remains in the sling and absolutely no Lt arm use or movement. I did start doing ball squeeze and wrist / hand ex. I take ibuprofen during the day, oxy only at night. 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 Hypertonicity at pect major/ minor and UT, levator on Lt side. Increased tone at biceps as well Posture Slight increase in lumbar lordosis and shoulder elevation and protraction Lt Assessment Assessment/Impression 46 yo with DX of p/o Lt RCR/ SAD 01/09/22. She exhibits impaired Lt shoulder ROM/ mobility, strength and impaired functional use of Lt UE/shoulder. She is currently restricted of No AROM Lt shoulder for 6 weeks p/o, but can complete PROM at shoulder, AROM elbow, wrist and hand. She has approval to RTW but restricted to 4 hours per day and absolutely no Lt arm movement or use. Use of sling unless showering. She c/o interrupted sleep and use of pain medication and ice for pain control. Pain reportedly 0-7/10 (average pain is 4/10) at shoulder/UB and occasionally at neck. Rt shoulder PROM is FF 0-90 /ABD 0-80 / ER to neutral (for 6 weeks) / IR 0-50 . Strength testing not appropriate per p/ o status. Patient will benefit from continued skilled physical therapy to provide education in AROM for elbow/ wrist/hand, codman's relaxation ex. Discussed use of towel for padding in sling to improve comfort and support , also use of pillows for support while sleeping and continued benefits of ice. We will also provide pain/sx management, improved Rt shoulder ROM with Passive to Active and strength progression - per continued f/ u with physician, body mechanics and postural education. Thank you for this referral. Plan of Care Rehabilitation Potential Good Physical Therapy Goals In 4-6 visits, Zoila will be able to: 1. Ability to use UE from waist to chest height repetitively up to 30 min light duty (folding clothing, making bed, etc) 2. Overall Lt shoulder pain 0- 4/10 75% of the time. 3. Improved Lt shoulder PROM to WNL pain free In 10-12 visits, Zoila will be able to: 1. Improved Lt shoulder AROM to WFL to return to use of Lt shoulder/UE without compensatory movement pattern, at 75% PLOF 2. Improved Lt shoulder / UE strength to WFL 4/5 for return to work/home tasks without restrictions, keeping pain at or below 3/10 average 75% of the time 3. Sleep up to 6 hours without awakening due to Lt UE pain greater than 2/10 90% of the time 4. Patient will be IND in HEP to progress towards acquisition of above goals, cont IND for self management of symptoms and prevention. Coordination/Communication With Referral Source Treatment Plan/Direct Interventions Ice/Cold/Vasopneumatic,Joint Mobilization,Manual Therapy, Neuromuscular Re-ed,Self-Care/ Home Management,Therapeutic Exercises Frequency/Duration 1X/Wk for 12 visits Patient Will Be Discharged From Therapy Completion of LTG(s),Skills Plateau,Independent w/HEP, Independently Progressing Evaluation Billing Untimed Code Treatment Minutes 27 Complexity Moderate Certification Information Physician Comment/Change Comment or Changes Physician NPI Number #
== END 2022-11-30 13:09 | disposition home or self-care (01) ==
PROVIDERS: PCP Family Medicine; Visit Provider Physician Assistant Surgical
DX: Z98.890 Other specified postprocedural states (principal); N39.3 Stress incontinence (female) (male); R27.8 Other lack of coordination; Z51.89 Encounter for other specified aftercare
CPT/HCPCS: 97110; 97140; 97162; 97535

== ENCOUNTER 2022-10-03 11:03 | Outpatient (CLI) | payer OTHER, SELFPAY | END 2022-10-03 11:04 | disposition home or self-care (01) | LOC: NFLDREF 16:48 | PROVIDERS: PCP Family Medicine; Referring Provider Family Medicine; Visit Provider Obstetrics & Gynecology | DX: L73.9 Follicular disorder, unspecified (principal) | CPT/HCPCS: 87070; 87081; 87491; 87591; 87653 ==

== ENCOUNTER 2022-11-27 16:01 | Outpatient (CLI) | payer OTHER, SELFPAY ==
--- NOTE | 2022-11-27 16:00 | MR_ITS ---
[address] [address] Phone:?[phone] Fax:?[phone] Referring Physician Information: Romain Moreland M.D. [id number] [facility] [address] Phone:?[phone] Fax:?[phone] Patient:Krishan Obregon D.O.B:?1975 Sex:?Female Phone:?[phone] [facility] MRN:?[id number] Exam Date:?11/27/2022 EXAM: MRI of the LEFT SHOULDER, without contrast CLINICAL INFORMATION: Female, 46 years old, with left shoulder pain. INDICATION: Evaluate for rotator cuff re-tear. PRIOR SURGERY: History of rotator cuff repair. PLAIN FILMS: None available. COMPARISONS: Left shoulder MRI dated 09/14/2021. TECHNICAL INFORMATION: Using a 1.5T MR scanner and a localizing surface coil: coronal obliques: PD, T2FS sagittal obliques: T2, PDFS axials: PD, PDFS SEDATION: None CONTRAST: None FINDINGS: Bones: Proximal humerus: Surgical anchors in the greater tuberosity reflect rotator cuff repair, described below. No stress/occult fracture otherwise abnormal marrow signal/pathology. No humeral Hill-Sachs or reverse Hill-Sachs lesion/impaction or contusion. Glenoid: No fracture or marrow edema/pathology. No osseous Bankart lesion. Rotator cuff and muscles/tendons: Supraspinatus: Status post repair. The tendon is mildly have moderately attenuated and irregular in appearance with a 3 x 8 mm full-thickness perforation/tear at the posterior myotendinous junction (sagittal T2 series 8 image 8 and coronal STIR series 4 image 12). However, there is no broad-based or retracted tear. This is associated with a ganglion cyst versus localized bursitis in the overlying subacromial-subdeltoid bursa measuring 3.2 x 2.3 x 0.6 cm (sagittal T2 series 8 image 6 and coronal T2 series 6 image 12). Infraspinatus: Status post repair. No residual or recurrent tendon tear. Teres minor: No tendinopathy, tear or atrophy. Subscapularis: Mild tendinopathy of the superior distal subscapularis, without tendon tear or muscle atrophy. Deltoid: No strain or atrophy. Coracoacromial arch: Acromion morphology: Status post anterior acromioplasty for subacromial decompression, with good result. No os acromiale. Acromiohumeral space: The acromiohumeral space is within normal limits. Coracohumeral space: The coracohumeral space is within normal limits. Acromioclavicular joint: Joint: Mild AC joint arthropathy, without significant inferior osteophytosis or evidence of supraspinatus impingement. Ligaments: Coracoclavicular ligaments are intact. Bursae: Subacromial-subdeltoid: Mild subacromial-subdeltoid bursitis. Subcoracoid: No convincing subcoracoid bursal thickening/bursitis. Biceps tendon: The long head of the biceps tendon is present within the bicipital groove. Mild tendinopathy and partial-thickness longitudinal splitting of the intra-articular biceps long head tendon. Glenohumeral joint: Effusion/cyst: Large glenohumeral joint effusion, with synovitis. Articular cartilage: Humeral head: No osteochondral abnormalities. Glenoid: No osteochondral abnormalities. Loose bodies: No discrete intra-articular body within the joint. Labrum:?Intrasubstance degeneration and fraying is present throughout the superior labrum, without more well-defined labral tear. Inferior glenohumeral ligament/axillary pouch:?Intact. The axillary pouch is normal in thickness and signal. No evidence of adhesive capsulitis or capsular injury. IMPRESSION: 1. Status post supraspinatus & infraspinatus tendon repairs: -Approximately 8 x 3 mm full-thickness perforation/tear at the posterior myotendinous junction of supraspinatus. -No broad-based or retracted supraspinatus or infraspinatus tendon tear. -Approximately 3.2 x 2.3 x 0.6 cm ganglion cyst versus localized bursitis overlying the aforementioned supraspinatus perforation/tear. 2. Mild tendinopathy and partial-thickness longitudinal splitting of the intra- articular biceps long head tendon, without displacement. This is unchanged compared to the prior study dated 09/14/2021. 3. Mild subscapularis tendinopathy, without tear, unchanged. 4. Large glenohumeral joint effusion, with synovitis. No full-thickness chondral defect or evidence of glenohumeral joint osteoarthritis. 5. Mild AC joint arthropathy with mild subacromial-subdeltoid bursitis. Patient status post anterior acromioplasty. There is no evidence of impingement at the AC joint. 6. Intrasubstance degeneration and fraying of the superior labrum, which is of doubtful clinical significance. BC Electronically signed on 11/28/2022 8:30:00 AM by Michael Simeon M.D.
== END 2022-11-27 16:02 | disposition home or self-care (01) ==
LOC: MRI 16:02
PROVIDERS: PCP Family Medicine; Visit Provider Orthopaedic Surgery
DX: M25.512 Pain in left shoulder (principal); M75.102 Unspecified rotator cuff tear or rupture of left shoulder, not specified as traumatic; M25.412 Effusion, left shoulder; M75.52 Bursitis of left shoulder
CPT/HCPCS: 73221

== ENCOUNTER 2022-11-27 17:12 | Emergency (ER) | payer OTHER, SELFPAY ==
[2022-11-27 17:30] VITALS: BP 122/75; PULSE 110; RESP 18; TEMP 36.7; O2SAT 96; BMI 25.4
[2022-11-27 19:44] VITALS: BP 128/90; PULSE 84; RESP 16; TEMP 36.2; O2SAT 94
[2022-11-27 20:17] VITALS: BP 125/82; PULSE 70; RESP 18; O2SAT 98
--- NOTE | 2022-11-27 20:42 | ED.GENADULT ---
HPI - General Adult General Chief complaint: Extremity Pain/Injury, Upper Stated complaint: Dizzy, lightheaded after MRI Time Seen by Provider: 11/27/22 20:28 History of Present Illness HPI narrative: This 46-year-old female comes in with left shoulder pain and an episode of lightheadedness. She has had surgical repair of both shoulders in the past. Her right shoulder is been doing well but her left shoulder which was surgically repaired about a year ago has been giving her some problems at times. She does not report any recent injury or new strenuous activity but over the past couple days as severe left shoulder pain that sometimes radiates down into her hand and up into her neck. She did have an MRI done today and results are pending yet. After this MRI test she states that she felt lightheaded and decided to come here. She has been taking Toradol and other [id number] medicines for pain relief but with the severity of this pain these medicines are not helping at all. She also states that she did go to a chiropractor yesterday and feels that she is more stiff in her neck and shoulder now after this visit. Related Data Previous Rx's Medication Instructions Recorded pregabalin 50 mg capsule 50 mg PO BID PRN pain #30 caps 11/20/22 hydrocodone 5 mg-acetaminophen 325 1 tab PO Q4-6H PRN pain #20 tabs 11/27/22 mg tablet Allergies Allergy/AdvReac Type Severity Reaction Status Date / Time latex Allergy Severe Verified 11/27/22 17:33 morphine Allergy Severe Verified 11/27/22 17:33 sumatriptan Allergy Severe Unknown Verified 11/27/22 17:33 metoclopramide Allergy Mild Unknown Verified 11/27/22 17:33 nickel Allergy Mild Unknown Verified 11/27/22 17:33 prochlorperazine Allergy Mild Unknown Verified 11/27/22 17:33 Review of Systems Status of ROS: Reports: 10 or more systems reviewed and unremarkable except as noted in History and below Narrative: Constitutional: No fevers, no weight gain or loss. Eyes: No discharge. No vision changes. HENT: No congestion, no sore throat, no ear pain. Cardiovascular: No chest pain, no palpitations. Respiratory: No shortness of breath, no wheezes, no cough. Gastrointestinal: No abdominal pain, no vomiting, no diarrhea. Genitourinary: No dysuria, no hematuria. Musculoskeletal: Left shoulder pain as described above. Skin: No rashes, no pruritis. Neurological: No dizziness, weakness, sensory change, speech change. Endo/Heme/Allergies: No bruising or bleeding. No polydipsia. Pysch: no suicidality, no anxiety, no insomnia. All other systems reviewed and are negative. [facility] Medical History (Updated 11/27/22 @ 20:49 by Power Kaiser MD) Shoulder pain ?M25.519 - Pain in unspecified shoulder (ICD-10) Nerve pain ?M79.2 - Neuralgia and neuritis, unspecified (ICD-10) Mixed hyperlipidemia ?E78.2 - Mixed hyperlipidemia (ICD-10) ADHD, predominantly inattentive type ?F90.0 - Attention-deficit hyperactivity disorder, predominantly inattentive type (ICD-10) Type 2 diabetes mellitus without complication, with no history of insulin use ?E11.9 - Type 2 diabetes mellitus without complications (ICD-10) Perimenopausal symptoms ?N95.1 - Menopausal and female climacteric states (ICD-10) MERCEDES (stress urinary incontinence, female) ?N39.3 - Stress incontinence (female) (male) (ICD-10) Greater trochanteric bursitis of right hip ?M70.61 - Trochanteric bursitis, right hip (ICD-10) History of anemia ?Z86.2 - Personal history of diseases of the blood and blood-forming organs and certain disorders involving the immune mechanism (ICD-10) Surgical History (Updated 11/22/22 @ 13:59 by Albertina Casas) History of appendectomy ?Z90.49 - Acquired absence of other specified parts of digestive tract (ICD-10) History of endometrial ablation (11/08/21) ?Z98.890 - Other specified postprocedural states (ICD-10) Status post arthroscopy of right shoulder (10/21/20) ?Z98.890 - Other specified postprocedural states (ICD-10) History of laparoscopy (~1990) ?Z98.890 - Other specified postprocedural states (ICD-10) History of bladder suspension procedure ?Z98.890 - Other specified postprocedural states (ICD-10) ?Z87.448 - Personal history of other diseases of urinary system (ICD-10) Status post arthroscopy of left shoulder (01/09/22) ?Z98.890 - Other specified postprocedural states (ICD-10) History of gastric bypass ?Z98.84 - Bariatric surgery status (ICD-10) History of cholecystectomy ?Z90.49 - Acquired absence of other specified parts of digestive tract (ICD-10) Family History Father Diabetes Paternal Grandmother Diabetes Social History (Reviewed 11/22/22 @ 13:49 by Lauren Mcmahon ~ [facility], [facility]) Narrative: , 3 children. 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 Non-smoker. No illicit drug use. Cross fit Smoking Status: Never smoker Do you use any of these nicotine containing products: None How often do you have a drink containing alcohol: monthly or less How often do you have six or more drinks on one occasion: Never AUDIT-C Alcohol total score: 1 Non-prescribed substance use: denies use Little interest or pleasure in doing things: not at all Feeling down, depressed, or hopeless: not at all Exam Narrative: Exam Narrative: Constitutional: Well-developed, well-nourished, no acute distress. HEENT: Normocephalic, atraumatic. Neck: Normal range of motion. Nontender. Supple. Heart: Regular. No murmurs. Normal rate. Intact distal pulses. Lungs: Clear to auscultation. No chest discomfort. No wheezes, rhonchi, or rales. Abdomen: Normal bowel sounds. Nontender. No rebound tenderness. Genitalia: Deferred. Back: No midline tenderness. Normal range of motion. Extremities: Normal range of motion. No injury. Skin: Intact. No rash. Warm. No erythema or pallor. Neurologic: No altered sensation. No weakness. Alert and oriented. Spurling's test is negative. Psychiatric: No suicidality. No anxiety or depression. No insomnia. Nursing notes and vitals signs are reviewed. Const: Vital Signs, click to edit/add: Vital Signs - 24 hr 11/27/22 17:30 11/27/22 19:44 11/27/22 20:17 Temperature 98.0 F 97.2 F L Pulse Rate [Right Pulse Oximeter] 110 H 84 70 Respiratory Rate 18 16 18 Blood Pressure [Ri ght Upper Arm] 122/75 128/90 H 125/82 Pulse Oximetry 96 94 98 Oxygen Delivery Me thod Room Air Room Air Room Air Course Vital Signs Vital signs: Initial Vital Signs Temperature 98.0 F 11/27/22 17:30 Temperature Source Temporal Artery Scan 11/27/22 17:30 Pulse Rate 110 H 11/27/22 17:30 Pulse Rhythm Regular 11/27/22 17:30 Pulse Strength 3+ Normal 11/27/22 17:30 Respiratory Rate 18 11/27/22 17:30 Blood Pressure 122/75 11/27/22 17:30 Blood Pressure Mean 90 11/27/22 17:30 Blood Pressure Position Sitting 11/27/22 17:30 Pulse Oximetry 96 11/27/22 17:30 Oxygen Delivery Method Room Air 11/27/22 17:30 Vital Signs Temperature 98.0 F 11/27/22 17:30 Pulse Rate 110 H 11/27/22 17:30 Respiratory Rate 18 11/27/22 17:30 Blood Pressure 122/75 11/27/22 17:30 Pulse Oximetry 96 11/27/22 17:30 Oxygen Delivery Method Room Air 11/27/22 17:30 Temperature 97.2 F L 11/27/22 19:44 Pulse Rate 70 11/27/22 20:17 Respiratory Rate 18 11/27/22 20:17 Blood Pressure 125/82 11/27/22 20:17 Pulse Oximetry 98 11/27/22 20:17 Oxygen Delivery Method Room Air 11/27/22 20:17 Medical Decision Making MDM Narrative Medical decision making narrative: This patient has chronic left shoulder pain that is worsened significantly over the last couple days without any trigger of injury event or overuse activities. She has been in touch with orthopedic clinic in this regard and did have a MRI study done earlier today. Results for this test are pending. I did look at the images myself and did not see any new pathology. There are findings related to the previous surgery she had done about a year ago. This patient states that she did not sleep last night because of pain and does need some additional pain management as she is already in a process of working this up with Dr. Moreland in the orthopedic clinic. The patient did receive an intramuscular injection of Dilaudid 1 mg and I provided prescription for tablets of [place]. She does have follow-up arrangements regarding the MRI and further management of this condition. She also states that she has a sling that she can use if needed. Discharge Plan Discharge Clinical Impression: Shoulder pain Condition: Stable Additional Instructions: Take medication as needed and indicated. Follow up with orthopedic clinic or return if worsening. Prescriptions: New hydrocodone-acetaminophen 5-325 mg tablet 1 tab PO Q4-6H PRN (Reason: pain) Qty: 20 0RF No Action pregabalin 50 mg capsule 50 mg PO BID PRN (Reason: pain) Qty: 30 0RF Follow Up/Referrals: Misael Hobbs MD [Primary Care Provider] - Stand Alone Forms: [employer] Info Instructions
[2022-11-27] MEDS: HYDROmorphone 0.5 mg/0.5 ml inj 1 MG IM (21:02)
== END 2022-11-27 21:08 | disposition home or self-care (01) ==
PROVIDERS: Emergency Provider Emergency Medicine Emergency Medical Services; PCP Family Medicine
DX: M25.512 Pain in left shoulder (principal)
CPT/HCPCS: 96372; 99283; 99284; J1170

== ENCOUNTER 2023-02-08 07:38 | Outpatient (CLI) | payer OTHER, SELFPAY ==
--- NOTE | 2023-02-08 08:56 | W.ANESCHARGE ---
Anesthesia Charges Start Date/Time Anesthesia Start Date: 02/08/23 Anesthesia Start Time: 08:15 Stop Date/Time Anesthesia Stop Date: 02/08/23 Anesthesia Stop Time: 08:57
--- NOTE | 2023-02-08 08:59 | W.ANESCHARGE ---
Anesthesia Charges Start Date/Time Anesthesia Start Date: 02/08/23 Anesthesia Start Time: 08:15 Stop Date/Time Anesthesia Stop Date: 02/08/23 Anesthesia Stop Time: 08:57
== END 2023-02-08 07:39 | disposition home or self-care (01) ==
LOC: OP CLINIC 07:38
PROVIDERS: PCP Family Medicine; Visit Provider Surgery
DX: Z12.11 Encounter for screening for malignant neoplasm of colon (principal); K63.5 Polyp of colon; K64.9 Unspecified hemorrhoids
CPT/HCPCS: 00811; 45385; 88305; A9270; J2704

== ENCOUNTER 2023-02-20 16:29 | Emergency (ER) | payer OTHER, SELFPAY ==
[2023-02-20] VITALS (48 sets, daily range): BP systolic 94–119; BP diastolic 55–74; PULSE 70–89; RESP 16–18; TEMP 36.1; O2SAT 89–100; BMI 25.4
[2023-02-20] MEDS: RACEPINEPHRINE HCL 0.5 ML VIAL.NEB NEB ×2 (16:36→20:20)
--- NOTE | 2023-02-20 16:39 | ED.GENADULT ---
HPI - General Adult General Chief complaint: Allergic Reaction Stated complaint: Allergic reaction--difficulty breathing Time Seen by Provider: 02/20/23 16:34 History of Present Illness HPI narrative: pt has been having issues with her breathing since this am after an exposure to a coworker's fragrances, at about lunch started getting hoarse voice and now feels it's harder to breathe, noted hoarse voice, took benadryl, claritin, and rescue inhaler 47 year old woman presenting to the ER with difficulty breathing. 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 Has a history of chemical exposure years ago resulting in diagnosis of COPD, reactive airway and the laryngospasm. Was discharged at this time with racemic epinephrine. Has never been intubated. She has not had a fever and was feeling well prior to this. Did take diphenhydramine, loratadine and albuterol inhaler. Is worsening with increasing difficulty breathing and increasingly hoarse voice. No nausea/vomiting or abdominal cramping. Related Data Previous Rx's Medication Instructions Recorded ondansetron 8 mg disintegrating 8 mg PO Q8H PRN nausea and 01/10/23 tablet vomiting #30 tabs dextroamphetamine-amphetamine 15 15 mg PO QDAY #30 tabs 02/06/23 mg tablet dextroamphetamine-amphetamine 15 15 mg PO QDAY #30 tabs 02/06/23 mg tablet (Adderall) dextroamphetamine-amphetamine 20 20 mg PO QDAY #30 tabs 02/06/23 mg tablet dextroamphetamine-amphetamine 20 20 mg PO QDAY #30 tabs 02/06/23 mg tablet (Adderall) albuterol sulfate 90 mcg/actuation 2 inh inhalation Q2-3H PRN Wheeze 02/20/23 aerosol inhaler #8.5 grams epinephrine 0.3 mg/0.3 mL 0.3 ml IM Q5-15M PRN #2 ea 02/20/23 injection, auto-injector (EpiPen 2-Ren) racepinephrine 2.25 % solution for 0.5 ml inhalation Q2H PRN 02/20/23 nebulization laryngospasm/throat tightness #6 ea semaglutide 2 mg/dose (8 mg/3 mL) 2 mg (0.75 mL) subcut QWEEK #3 mL 02/23/23 subcutaneous pen injector Allergies Allergy/AdvReac Type Severity Reaction Status Date / Time latex Allergy Severe Verified 02/23/23 13:25 morphine Allergy Severe Verified 02/23/23 13:25 sumatriptan Allergy Severe Unknown Verified 02/23/23 13:25 metoclopramide Allergy Mild Unknown Verified 02/23/23 13:25 nickel Allergy Mild Unknown Verified 02/23/23 13:25 prochlorperazine Allergy Mild Unknown Verified 02/23/23 13:25 Review of Systems Status of ROS: Reports: 6 or more systems reviewed and unremarkable except as noted in History and below [facility] Medical History (Updated 03/07/23 @ 00:00 by Background Daemon) Mixed hyperlipidemia ?E78.2 - Mixed hyperlipidemia (ICD-10) ADHD, predominantly inattentive type ?F90.0 - Attention-deficit hyperactivity disorder, predominantly inattentive type (ICD-10) Type 2 diabetes mellitus without complication, with no history of insulin use ?E11.9 - Type 2 diabetes mellitus without complications (ICD-10) Perimenopausal symptoms ?N95.1 - Menopausal and female climacteric states (ICD-10) MERCEDES (stress urinary incontinence, female) ?N39.3 - Stress incontinence (female) (male) (ICD-10) Greater trochanteric bursitis of right hip ?M70.61 - Trochanteric bursitis, right hip (ICD-10) History of anemia ?Z86.2 - Personal history of diseases of the blood and blood-forming organs and certain disorders involving the immune mechanism (ICD-10) Surgical History History of appendectomy ?Z90.49 - Acquired absence of other specified parts of digestive tract (ICD-10) History of endometrial ablation (11/08/21) ?Z98.890 - Other specified postprocedural states (ICD-10) Status post arthroscopy of right shoulder (10/21/20) ?Z98.890 - Other specified postprocedural states (ICD-10) History of laparoscopy (~1990) ?Z98.890 - Other specified postprocedural states (ICD-10) History of bladder suspension procedure ?Z98.890 - Other specified postprocedural states (ICD-10) ?Z87.448 - Personal history of other diseases of urinary system (ICD-10) Status post arthroscopy of left shoulder (01/09/22) ?Z98.890 - Other specified postprocedural states (ICD-10) History of gastric bypass ?Z98.84 - Bariatric surgery status (ICD-10) History of cholecystectomy ?Z90.49 - Acquired absence of other specified parts of digestive tract (ICD-10) Family History Father Diabetes Paternal Grandmother Diabetes Social History Narrative: , 3 children. 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 Non-smoker. No illicit drug use. Cross fit Smoking Status: Never smoker Do you use any of these nicotine containing products: None How often do you have a drink containing alcohol: monthly or less How often do you have six or more drinks on one occasion: Never AUDIT-C Alcohol total score: 1 Non-prescribed substance use: denies use Little interest or pleasure in doing things: not at all Feeling down, depressed, or hopeless: not at all Exam Narrative: Exam Narrative: Understandably appears somewhat anxious. Somewhat laryngitic somewhat stridorous voice. Maintaining secretions. Oropharynx is moist. I do not appreciate much swelling here. Trachea is midline. Neck is supple without lymphadenopathy. Lungs are without wheeze. Heart in regular rate and rhythm. Skin is warm and dry without rash. She is well-perfused. Cranial nerves 2-12 look to be intact he Const: Vital Signs, click to edit/add: Vital Signs - 24 hr 02/20/23 16:35 02/20/23 16:36 02/20/23 16:38 Temperature Pulse Rate 77 78 Pulse Rate [Right Pulse Oximeter] Respiratory Rate Blood Pressure 119/74 Blood Pressure [Ri ght Upper Arm] Pulse Oximetry 96 96 98 Oxygen Delivery Me thod 02/20/23 16:42 02/20/23 16:43 02/20/23 16:44 Temperature 97.0 F L Pulse Rate 79 81 Pulse Rate [Right Pulse Oximeter] 74 Respiratory Rate 18 Blood Pressure 96/55 L Blood Pressure [Ri ght Upper Arm] 119/74 Pulse Oximetry 100 100 100 Oxygen Delivery Me thod Room Air 02/20/23 16:45 02/20/23 16:46 02/20/23 17:00 Temperature Pulse Rate 85 82 73 Pulse Rate [Right Pulse Oximeter] Respiratory Rate Blood Pressure 105/59 L Blood Pressure [Ri ght Upper Arm] Pulse Oximetry 89 93 99 Oxygen Delivery Me thod 02/20/23 17:01 02/20/23 17:02 02/20/23 17:15 Temperature Pulse Rate 75 74 73 Pulse Rate [Right Pulse Oximeter] Respiratory Rate Blood Pressure 108/70 Blood Pressure [Ri ght Upper Arm] Pulse Oximetry 99 98 96 Oxygen Delivery Me thod 02/20/23 17:16 02/20/23 17:30 02/20/23 17:31 Temperature Pulse Rate 75 73 73 Pulse Rate [Right Pulse Oximeter] Respiratory Rate Blood Pressure 105/64 96/62 Blood Pressure [Ri ght Upper Arm] Pulse Oximetry 96 99 99 Oxygen Delivery Me thod 02/20/23 17:32 02/20/23 17:42 02/20/23 17:45 Temperature Pulse Rate 72 72 Pulse Rate [Right Pulse Oximeter] Respiratory Rate 16 Blood Pressure Blood Pressure [Ri ght Upper Arm] Pulse Oximetry 100 100 Oxygen Delivery Nh thod 02/20/23 18:00 02/20/23 18:02 02/20/23 18:08 Temperature Pulse Rate 74 74 Pulse Rate [Right Pulse Oximeter] Respiratory Rate Blood Pressure 101/61 Blood Pressure [Ri ght Upper Arm] Pulse Oximetry 100 99 Oxygen Delivery Nh thod 02/20/23 18:15 02/20/23 18:30 02/20/23 18:31 Temperature Pulse Rate 70 70 73 Pulse Rate [Right Pulse Oximeter] Respiratory Rate Blood Pressure 96/60 Blood Pressure [Ri ght Upper Arm] Pulse Oximetry 100 99 97 Oxygen Delivery Nh thod 02/20/23 18:45 02/20/23 19:00 02/20/23 19:01 Temperature Pulse Rate 78 79 83 Pulse Rate [Right Pulse Oximeter] Respiratory Rate Blood Pressure 96/60 Blood Pressure [Ri ght Upper Arm] Pulse Oximetry 99 97 98 Oxygen Delivery Nh thod 02/20/23 19:02 02/20/23 19:15 02/20/23 19:30 Temperature Pulse Rate 87 81 76 Pulse Rate [Right Pulse Oximeter] Respiratory Rate Blood Pressure Blood Pressure [Ri ght Upper Arm] Pulse Oximetry 98 99 97 Oxygen Delivery Me thod 02/20/23 19:31 02/20/23 19:45 02/20/23 20:00 Temperature Pulse Rate 78 87 84 Pulse Rate [Right Pulse Oximeter] Respiratory Rate Blood Pressure 94/59 L Blood Pressure [Ri ght Upper Arm] Pulse Oximetry 95 98 97 Oxygen Delivery Me thod 02/20/23 20:01 02/20/23 20:15 02/20/23 20:30 Temperature Pulse Rate 74 83 85 Pulse Rate [Right Pulse Oximeter] Respiratory Rate Blood Pressure 100/60 Blood Pressure [Ri ght Upper Arm] Pulse Oximetry 96 98 95 Oxygen Delivery Me thod 02/20/23 20:31 02/20/23 20:45 02/20/23 21:00 Temperature Pulse Rate 85 89 83 Pulse Rate [Right Pulse Oximeter] Respiratory Rate Blood Pressure 99/56 L Blood Pressure [Ri ght Upper Arm] Pulse Oximetry 95 98 99 Oxygen Delivery Me thod 02/20/23 21:01 02/20/23 21:02 02/20/23 21:15 Temperature Pulse Rate 79 80 78 Pulse Rate [Right Pulse Oximeter] Respiratory Rate Blood Pressure 99/61 Blood Pressure [Ri ght Upper Arm] Pulse Oximetry 97 97 97 Oxygen Delivery Me thod 02/20/23 21:30 02/20/23 21:31 02/20/23 21:45 Temperature Pulse Rate 81 76 78 Pulse Rate [Right Pulse Oximeter] Respiratory Rate Blood Pressure 99/63 Blood Pressure [Ri ght Upper Arm] Pulse Oximetry 98 97 97 Oxygen Delivery Me thod 02/20/23 22:00 02/20/23 22:01 02/20/23 22:15 Temperature Pulse Rate 79 83 76 Pulse Rate [Right Pulse Oximeter] Respiratory Rate Blood Pressure 99/60 Blood Pressure [Ri ght Upper Arm] Pulse Oximetry 97 97 97 Oxygen Delivery Me thod Documenting provider has reviewed patient's vital signs: yes Course Vital Signs Vital signs: Initial Vital Signs Pulse Rate 77 02/20/23 16:35 Blood Pressure 119/74 02/20/23 16:35 Blood Pressure Mean 89 02/20/23 16:35 Pulse Oximetry 96 02/20/23 16:35 Vital Signs Pulse Rate 77 02/20/23 16:35 Blood Pressure 119/74 02/20/23 16:35 Pulse Oximetry 96 02/20/23 16:35 Temperature 97.0 F L 02/20/23 16:44 Pulse Rate 76 02/20/23 22:15 Respiratory Rate 16 02/20/23 17:42 Blood Pressure 99/60 02/20/23 22:01 Pulse Oximetry 97 02/20/23 22:15 Oxygen Delivery Method Room Air 02/20/23 16:44 Medical Decision Making MDM Narrative Medical decision making narrative: Is maintaining oxygenation. Is sounding however quite tight in the upper airway. There may be some reactive laryngospasm. Would be good to get ahead of this apparent of allergic reaction. Given that it does not appear to be in her lungs at this point I would focus on upper airway with racemic epinephrine. Will be monitoring on cardiac monitor technician and oximetry. Racemic epinephrine seems to provide a little relief. IV has also been placed. Normal saline. Will be also dosed with diphenhydramine and Solu-Medrol. Continuing to monitor starts to feel more tight again in her chest. Reauscultation reveals new pulmonary wheeze. Given a DuoNeb. Continuing to monitor. As expected oxygen saturations dipped a little bit. Improved on reassessment. Less wheeze on reauscultation. Continuing to monitor. Begins to feel tight again in her throat. Voice seems to be more hoarse again. Repeating racemic epinephrine nebulization. Prudent to do a chest x-ray I think at this point. I did review this chest x-ray and it looks WNL. I do not see increasing edema or pneumothorax. No infiltrate. Feels improved again in her throat tightness and vocalizations. Overall now on reassessment yet again improved and feels she can return home. Oxygen saturations have been stable. Voice sounds more relaxed. See patient discharge plan. Will be sending with racemic epinephrine given intensity of reaction and benefit in the past. Medical Records Medical records reviewed: Yes I reviewed the patient's medical records Critical Care Time Critical Care Time Critical Care Time: Yes Attestation: The patient required my highest level preparedness to intervene emergently and I personally spent this critical care time directly and personally managing the patient. This critical care time included: Obtaining a history; Examining the patient; Pulse oximetry; Ordering and reviewing of studies; Arranging urgent treatment with development of a management plan; Evaluation of patients response to treatment; Frequent reassessment discussions with other providers. This critical care time was performed to assess and manage the high probability of imminent life-threatening deterioration that could result in multiorgan failure. It was exclusive of separate billable procedures and treating other patients and teaching time. Total Critical Care Time in Minutes: 40 Discharge Plan Discharge Clinical Impression: Laryngospasm, Acute bronchospasm Patient Disposition: Home w/ Parent or Adult Condition: Improved Additional Instructions: Stay well-hydrated. If any indication of return of throat tightness or difficulty breathing, take diphenhydramine. Consider racemic epinephrine nebulization and then present to the emergency department. Of course for a bee sting if having some throat tightness or difficulty breathing, dose with the EpiPen, diphenhydramine 25-50mg and present to the ER. 3 more days of prednisone. Prescriptions: New racepinephrine 2.25 % solution for nebulization 0.5 ml inhalation Q2H PRN (Reason: laryngospasm/throat tightness) Qty: 6 1RF Rx Instructions: dilute in 3 mL saline and administer via nebulizer over 15 mins albuterol sulfate 90 mcg/actuation HFA aerosol inhaler 2 inh inhalation Q2-3H PRN (Reason: Wheeze) Qty: 8.5 2RF Rx Instructions: Use with spacer if possible epinephrine [EpiPen 2-Ren] 0.3 mg/0.3 mL auto-injector 0.3 ml IM Q5-15M PRNQty: 2 0RF Rx Instructions: do not exceed 3 doses per episode No Action semaglutide 2 mg/dose (8 mg/3 mL) pen injector 2 mg subcut QWEEK Qty: 3 1RF ondansetron 8 mg tablet,disintegrating 8 mg PO Q8H PRN (Reason: nausea and vomiting) Qty: 30 1RF dextroamphetamine-amphetamine 15 mg tablet 15 mg PO QDAY Qty: 30 0RF dextroamphetamine-amphetamine 20 mg tablet 20 mg PO QDAY Qty: 30 0RF dextroamphetamine-amphetamine [Adderall] 15 mg tablet 15 mg PO QDAY Qty: 30 0RF dextroamphetamine-amphetamine [Adderall] 20 mg tablet 20 mg PO QDAY Qty: 30 0RF Follow Up/Referrals: Misael Hobbs MD [Primary Care Provider] - Stand Alone Forms: [employer] Info Instructions
[2023-02-20] MEDS: diphenhydrAMINE 50 MG/ML inj 25 MG IVP (16:58)
[2023-02-20] MEDS: METHYLPREDNISOLONE SOD SUCC 62.5 MG/ML (125) 93.75 MG IVP (16:58)
[2023-02-20] MEDS: 0.9 % SODIUM CHLORIDE 1000 ml 1,000 ML IV (16:58)
--- NOTE | 2023-02-20 18:28 | ED.NURSE ---
Pt complaining of breathing feeling tight again. Lungs auscultated, more prominent inspiratory wheezes heard. MD notified, MD in room to examine pt.
[2023-02-20] MEDS: IPRAT-ALBUT 0.5-2.5 MG/3 ML NEB 1 NEB IH (18:38)
--- NOTE | 2023-02-20 18:57 | ED.NURSE ---
Pt lung sounds improved after duoneb. No inspiratory wheeze auscultated at this time.
--- NOTE | 2023-02-20 19:19 | ED.NURSE ---
Lung sounds reassessed, expiratory wheezes auscultated at this time. MD notified.
--- NOTE | 2023-02-20 19:49 | CRLHL7_ITS ---
For Patients: As a result of the Cures Act, medical imaging exams and procedure reports are released immediately into your electronic medical record. You may view this report before your referring provider. If you have questions, please contact your health care provider. INDICATION: Shortness of breath, allergic reaction.. TECHNIQUE: Chest 1 view. COMPARISON: April 25, 2022. FINDINGS: Cardiovascular and mediastinum: Cardiomediastinal silhouette is within normal limits. Lungs and pleural spaces: Lungs are clear. No evidence of pleural effusion. No pneumothorax identified. Bones and soft tissues: Unremarkable. IMPRESSION: No acute cardiopulmonary process identified. No significant interval change. Dictated by Alyssa Yee MD @ 02/20/2023 9:00:37 PM (Electronically Signed)
--- NOTE | 2023-02-20 20:50 | ED.NURSE ---
Pt reports feeling airway much improved after racemic epi neb. Pt's voice is notably more clear and less hoarse. MD notified.
--- NOTE | 2023-02-20 21:52 | ED.NURSE ---
Lung sounds reassessed, clear with no wheezes auscultated at this time. Pt reports feeling like her airway is better.
--- NOTE | 2023-02-21 15:16 | ED.NURSE ---
Patient called because she was given prescription for racemic epinephrine nebs but she does not have a neb machine. Prescription for neb machine and supplies phoned into [facility] for patient. No further questions/concerns.
== END 2023-02-20 22:33 | disposition home or self-care (01) ==
PROVIDERS: Emergency Provider Family Medicine; PCP Family Medicine
DX: J38.5 Laryngeal spasm (principal); J98.01 Acute bronchospasm
CPT/HCPCS: 71045; 94640; 94761; 96374; 96375; 99284; 99291; J1200; J2930; J7030

== ENCOUNTER 2023-04-10 14:12 | Outpatient (CLI) | payer OTHER, SELFPAY | END 2023-04-10 14:13 | disposition home or self-care (01) | PROVIDERS: PCP Family Medicine; Visit Provider Obstetrics & Gynecology | DX: N95.1 Menopausal and female climacteric states (principal); E78.2 Mixed hyperlipidemia; E11.9 Type 2 diabetes mellitus without complications | CPT/HCPCS: 83001; 84443 ==

== ENCOUNTER 2023-05-07 16:45 | Outpatient (REF) | payer OTHER, SELFPAY | END 2023-05-07 16:46 | disposition home or self-care (01) | LOC: NFLDREF 16:45 | PROVIDERS: PCP Family Medicine; Referring Provider Family Medicine; Visit Provider Obstetrics & Gynecology | DX: N95.1 Menopausal and female climacteric states (principal); N39.3 Stress incontinence (female) (male) | CPT/HCPCS: 87086 ==

== ENCOUNTER 2023-06-24 22:08 | Emergency (ER) | payer OTHER, SELFPAY ==
[2023-06-24 22:15] VITALS: BP 119/81; PULSE 88; RESP 18; TEMP 36.8; O2SAT 97; BMI 25.4
--- NOTE | 2023-06-24 22:27 | ED.GENADULT ---
HPI - General Adult General Time Seen by Provider: 22:27 Date Seen: 06/24/23 Chief complaint: Unspecified Complaint, Adult Stated complaint: possible hemorrhoid/abscess Time Seen by Provider: 06/24/23 22:17 Source: patient and RN notes reviewed Mode of arrival: ambulatory Limitations: no limitations History of Present Illness HPI narrative: This 47-year-old female is coming into the ER with complaint of severe rectal/anal pain. It came on suddenly overnight. She feels there is a lesion along the anus, her did look. It is extremely painful. She denies any trauma. Does have a history of hemorrhoids. No bleeding. she is tried topical creams, Sitz baths, Tylenol, ibuprofen, even had a Toradol at noon. The pain is really unbearable for her and she is quite surprised at how quickly it came on. She has felt warm because of the pain but no fever that she is aware of. Related Data Previous Rx's Medication Instructions Recorded dextroamphetamine-amphetamine 15 15 mg PO QDAY #30 tabs 02/06/23 mg tablet dextroamphetamine-amphetamine 15 15 mg PO QDAY #30 tabs 02/06/23 mg tablet (Adderall) dextroamphetamine-amphetamine 20 20 mg PO QDAY #30 tabs 02/06/23 mg tablet dextroamphetamine-amphetamine 20 20 mg PO QDAY #30 tabs 02/06/23 mg tablet (Adderall) albuterol sulfate 90 mcg/actuation 2 inh inhalation Q2-3H PRN Wheeze 02/20/23 aerosol inhaler #8.5 grams epinephrine 0.3 mg/0.3 mL 0.3 ml IM Q5-15M PRN #2 ea 02/20/23 injection, auto-injector (EpiPen 2-Ren) racepinephrine 2.25 % solution for 0.5 ml inhalation Q2H PRN 02/20/23 nebulization laryngospasm/throat tightness #6 ea blood-glucose sensor (Dexcom G6 #9 ea 04/02/23 Sensor device) blood-glucose transmitter (Dexcom #1 ea 04/02/23 G6 Transmitter device) estradiol 0.01% (0.1 mg/gram) 0.5 g vaginal 2XW #42.5 grams 04/10/23 vaginal cream (Estrace) ondansetron 8 mg disintegrating 8 mg PO Q8H PRN nausea and 04/18/23 tablet vomiting #30 tabs estradiol 0.05 mg/24 hr semiweekly 1 patch transdermal 2XW #8 ea 05/07/23 transdermal patch (Vivelle-Dot) progesterone micronized 100 mg 100 mg PO QHS #90 caps 05/07/23 capsule (Prometrium) azithromycin 250 mg tablet See Rx Instructions PO .COMPLEX #6 05/11/23 tabs semaglutide 2 mg/dose (8 mg/3 mL) 2 mg (0.75 mL) subcut QWEEK #3 mL 06/20/23 subcutaneous pen injector Allergies Allergy/AdvReac Type Severity Reaction Status Date / Time latex Allergy Severe Verified 06/20/23 08:13 morphine Allergy Severe Verified 06/20/23 08:13 sumatriptan Allergy Severe Unknown Verified 06/20/23 08:13 metoclopramide Allergy Mild Unknown Verified 06/20/23 08:13 nickel Allergy Mild Unknown Verified 06/20/23 08:13 prochlorperazine Allergy Mild Unknown Verified 06/20/23 08:13 Review of Systems Narrative: As per HPI. [facility] Medical History Sinusitis ?J32.9 - Chronic sinusitis, unspecified (ICD-10) Rotator cuff tear, left ?M75.102 - Unspecified rotator cuff tear or rupture of left shoulder, not specified as traumatic (ICD-10) Mixed hyperlipidemia ?E78.2 - Mixed hyperlipidemia (ICD-10) ADHD, predominantly inattentive type ?F90.0 - Attention-deficit hyperactivity disorder, predominantly inattentive type (ICD-10) Type 2 diabetes mellitus without complication, with no history of insulin use ?E11.9 - Type 2 diabetes mellitus without complications (ICD-10) Perimenopausal symptoms ?N95.1 - Menopausal and female climacteric states (ICD-10) MERCEDES (stress urinary incontinence, female) ?N39.3 - Stress incontinence (female) (male) (ICD-10) Greater trochanteric bursitis of right hip ?M70.61 - Trochanteric bursitis, right hip (ICD-10) History of anemia ?Z86.2 - Personal history of diseases of the blood and blood-forming organs and certain disorders involving the immune mechanism (ICD-10) Surgical History History of appendectomy ?Z90.49 - Acquired absence of other specified parts of digestive tract (ICD-10) History of endometrial ablation (11/08/21) ?Z98.890 - Other specified postprocedural states (ICD-10) Status post arthroscopy of right shoulder (10/21/20) ?Z98.890 - Other specified postprocedural states (ICD-10) History of laparoscopy (~1990) ?Z98.890 - Other specified postprocedural states (ICD-10) History of bladder suspension procedure ?Z98.890 - Other specified postprocedural states (ICD-10) ?Z87.448 - Personal history of other diseases of urinary system (ICD-10) Status post arthroscopy of left shoulder (01/09/22) ?Z98.890 - Other specified postprocedural states (ICD-10) History of gastric bypass ?Z98.84 - Bariatric surgery status (ICD-10) History of cholecystectomy ?Z90.49 - Acquired absence of other specified parts of digestive tract (ICD-10) Family History Father Diabetes Paternal Grandmother Diabetes Other Breast cancer Colon cancer Depression High cholesterol Osteoporosis Seizure disorder Social History Narrative: , 3 children. Lives in [place]. 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 Non-smoker. No illicit drug use. Cross fit Smoking Status: Never smoker Do you use any of these nicotine containing products: None How often do you have a drink containing alcohol: monthly or less How often do you have six or more drinks on one occasion: Never AUDIT-C Alcohol total score: 1 Non-prescribed substance use: denies use Little interest or pleasure in doing things: not at all Feeling down, depressed, or hopeless: not at all Exam Const: Vital Signs, click to edit/add: Vital Signs - 24 hr 06/24/23 22:15 06/24/23 23:03 Temperature 98.3 F Pulse Rate [Pulse Oximeter] 88 Respiratory Rate 18 Blood Pressure [Le ft Upper Arm] 119/81 Pulse Oximetry 97 98 Oxygen Delivery Me thod Room Air This 47-year-old female is resting her arms on the bed, bending forward from the hips. She looks to be uncomfortable. She is able to get on the bed, at about a 6 to 7 o'clock position, has a large erythematous to purplish appearing thrombosed hemorrhoid. No bleeding at this time. Documenting provider has reviewed patient's vital signs: yes Course Course ED Course: Patient is quite uncomfortable. I think for her comfort level inability to lie down for this procedure, we are going to need to place an IV and give her some IV pain management. She would greatly appreciate this. My plan is to have nursing staff start an IV, monitor with pulse oximetry. We will give her 500 mL normal saline, 50 mcg fentanyl, 4 mg IV Zofran and 15 mg IV Toradol. She understands that my plan is for incision and evacuation of the thrombosed hemorrhoid. She consents to having this done. Reevaluation(s) Time of Reevaluation #1: 23:18 Reevaluation #1: Just completed procedure of evacuating thrombosed hemorrhoid. Patient had a large thrombosed hemorrhoid at roughly a 6 to 7 o'clock position. 5 mL of 2% lidocaine was drawn up. About 4 mL total was used locally to achieve anesthesia. A scalpel was used to make a central cut approximating over the area where the palpable thrombosis was. The clot was evacuated. Patient tolerated the procedure well, no immediate complications. No wiliam active bleeding at the end of the procedure. Was explained to the patient that we do leave this wound open to further drain, will heal by secondary intention. Vital Signs Vital signs: Initial Vital Signs Temperature 98.3 F 06/24/23 22:15 Temperature Source Temporal Artery Scan 06/24/23 22:15 Pulse Rate 88 06/24/23 22:15 Respiratory Rate 18 06/24/23 22:15 Blood Pressure 119/81 06/24/23 22:15 Blood Pressure Mean 93 06/24/23 22:15 Blood Pressure Position Sitting 06/24/23 22:15 Pulse Oximetry 97 06/24/23 22:15 Oxygen Delivery Method Room Air 06/24/23 22:15 Vital Signs Temperature 98.3 F 06/24/23 22:15 Pulse Rate 88 06/24/23 22:15 Respiratory Rate 18 06/24/23 22:15 Blood Pressure 119/81 06/24/23 22:15 Pulse Oximetry 97 06/24/23 22:15 Oxygen Delivery Method Room Air 06/24/23 22:15 Temperature 98.3 F 06/24/23 22:15 Pulse Rate 88 06/24/23 22:15 Respiratory Rate 18 06/24/23 22:15 Blood Pressure 119/81 06/24/23 22:15 Pulse Oximetry 98 06/24/23 23:03 Oxygen Delivery Method Room Air 06/24/23 22:15 Medications Administered Medications: Generic Name Dose Route Start Last Admin Trade Name Freq PRN Reason Stop Dose Admin Sodium Chloride 500 mls @ 500 mls/hr 06/24/23 22:35 06/24/23 23:05 0.9 % Sodium Chloride 500 Ml IV 06/24/23 23:34 500 mls/hr .Q1H ONE Administration Discontinued Medications Generic Name Dose Route Start Last Admin Trade Name Freq PRN Reason Stop Dose Admin Fentanyl 50 mcg 06/24/23 22:36 06/24/23 23:05 Fentanyl 100 Mcg/2 Ml Inj IVP 06/24/23 22:37 50 mcg ONCE ONE Administration Ketorolac Tromethamine 15 mg 06/24/23 22:35 06/24/23 23:05 Ketorolac 15 Mg/Ml Inj IVP 06/24/23 22:36 15 mg ONCE ONE Administration Ondansetron HCl 4 mg 06/24/23 22:35 06/24/23 23:05 Ondansetron 2 Mg/Ml Inj IVP 06/24/23 22:36 4 mg ONCE ONE Administration Discharge Plan Discharge Clinical Impression: External hemorrhoid, thrombosed Patient Disposition: Home, Self-Care Condition: Stable Instructions: Hemorrhoids (ED), Thrombosed Hemorrhoid (ED) Additional Instructions: this area is likely to draining for few days, possibly up to the next week. Need to keep the area clean, use Sitz baths. You will need to wipe very gently. If there is concern for increasing pain, associated fever, do need to be re-evaluated. If you have further issues with hemorrhoids, can see the surgeon Dr. Ladd that you have seen before. Otherwise, can use Tylenol and ibuprofen as needed for pain control. Have sent 4 tablets of 5 mg oxycodone with you in case the pain initially is more severe. If you use the oxycodone, should use MiraLax and or senna to prevent constipation. Activity Level: Activity as Tolerated Prescriptions: No Action estradiol [Estrace] 0.01 % (0.1 mg/gram) cream 0.5 g vaginal 2XW Qty: 42.5 3RF Rx Instructions: Use nightly for 2 weeks, then twice weekly. May apply with finger. progesterone micronized [Prometrium] 100 mg capsule 100 mg PO QHS Qty: 90 4RF estradiol [Vivelle-Dot] 0.05 mg/24 hr patch semiweekly 1 patch transdermal 2XW Qty: 8 12RF Rx Instructions: apply 1 patch for 3 days alternating with 1 patch for 4 days each week for 3 wks per 4-wk cycle azithromycin 250 mg tablet See Rx Instructions PO .COMPLEX Qty: 6 0RF Rx Instructions: For 250 mg dose pack: take 500 mg today (day 1), then 250 mg for 4 days (days 2-5) PO racepinephrine 2.25 % solution for nebulization 0.5 ml inhalation Q2H PRN (Reason: laryngospasm/throat tightness) Qty: 6 1RF Rx Instructions: dilute in 3 mL saline and administer via nebulizer over 15 mins albuterol sulfate 90 mcg/actuation HFA aerosol inhaler 2 inh inhalation Q2-3H PRN (Reason: Wheeze) Qty: 8.5 2RF Rx Instructions: Use with spacer if possible epinephrine [EpiPen 2-Ren] 0.3 mg/0.3 mL auto-injector 0.3 ml IM Q5-15M PRNQty: 2 0RF Rx Instructions: do not exceed 3 doses per episode dextroamphetamine-amphetamine 15 mg tablet 15 mg PO QDAY Qty: 30 0RF dextroamphetamine-amphetamine 20 mg tablet 20 mg PO QDAY Qty: 30 0RF dextroamphetamine-amphetamine [Adderall] 15 mg tablet 15 mg PO QDAY Qty: 30 0RF dextroamphetamine-amphetamine [Adderall] 20 mg tablet 20 mg PO QDAY Qty: 30 0RF (DME) Dexcom G6 Transmitter Device See Rx Instructions .Route Qty: 1 3RF Rx Instructions: Change every 3 months (DME) Dexcom G6 Sensor Device See Rx Instructions .Route Qty: 9 3RF Rx Instructions: Change every 10 days ondansetron 8 mg tablet,disintegrating 8 mg PO Q8H PRN (Reason: nausea and vomiting) Qty: 30 1RF semaglutide 2 mg/dose (8 mg/3 mL) pen injector 2 mg subcut QWEEK Qty: 3 2RF Follow Up/Referrals: Misael Hobbs MD [Primary Care Provider] - Stand Alone Forms: [facility] Info Instructions
--- OUTSIDE RECORDS SUMMARY | 2023-06-24 23:01 | XMS_ITS | Clinical Summary ---
Author Name Unknown Organization [facility] Address [place], [place] [address] Care Team Providers Care Medicare Biller Name Role Phone Card, Jeff Brantley MD Unavailable Unavailable Allergies Active Allergy Reactions Criticality Noted Date Comments Avocado Hives Bee Venom Protein (Honey Bee) Edema,Hives High 03/22 Prochlorperazine 11/17/2007 Latex Hives,Rash High 01/13/2011 Rash, Hives, skin peels off Morphine Rash,Edema Unlisted Allergen (Include Detail In Comments) Hives COCONUT Sumatriptan 11/17/2007 Medications Medication Sig Dispensed Refills Start Date End Date Status albuterol HFA (PRO-AIR,VENTOLIN,HI OVENTIL) 90 mcg/actuation inhaler Inhale 2 Puffs by mouth every 6 hours if needed. 0 06/09/2015 Active albuterol-ipratropiu m (DUONEB) (2.5-0.5 mg) in 3 mL NEBULIZATION solution 1 neb as needed 0 06/09/2015 Active EPINEPHRine, racemic, (S-2) 2.25 % nebulizer solution 1 neb as needed 0 06/09/2015 Active fluticasone-salmeter ol (ADVAIR DISKUS) 500-50 mcg/Dose diskus inhalerIndications:R eactive airways dysfunction syndrome, severe persistent, with acute exacerbation (HC) Inhale 1 Puff by mouth 2 times daily. 3 Inhaler 3 06/09/2015 Active budesonide (PULMICORT) 0.5 mg/2 mL neb suspension Inhale 2 mL via a nebulizer 2 times daily. 0 06/16/2015 Active NebulizerIndications :Reactive airways dysfunction syndrome with acute exacerbation (HC) Nebulizer, neb kit, neb cup, tubing and mask. Duration of need 99 months. 1 Device 0 06/16/2015 Active medication order composerIndications: Reactive airways dysfunction syndrome with acute exacerbation (HC) oximeter 1 Device 0 06/16/2015 Active metFORMIN (GLUCOPHAGE XR) 750 mg Extended-Release tablet Take 750 mg by mouth once daily. 0 11/21/2019 Active multivitamins with minerals tablet Take 1 Tab by mouth. 0 Active blood sugar diagnostic (FREESTYLE LITE STRIPS) strip by Not Applicable route. 0 10/22/2019 Active fluticasone (50 mcg per actuation) nasal solution (FLONASE) USE TWO SPRAYS IN EACH NOSTRIL EVERY DAY 0 07/21/2019 Active FREESTYLE RENEE 14 DAY READER misc 1 EACH 4 TIMES A DAY 0 07/22/2019 Active atomoxetine (Strattera) 25 mg capsule Take 1 Capsule (25 mg) by mouth once daily. 0 10/18/2020 Active methylphenidate HCl (Concerta) 36 mg Extended-Release tabletIndications:At tention deficit hyperactivity disorder (ADHD), unspecified ADHD type Take 1 Tablet (36 mg) by mouth once daily. 30 Tablet 0 12/17/2020 Active metFORMIN (GLUCOPHAGE) 1,000 mg tabletIndications:Ty pe 2 diabetes mellitus with hyperglycemia, without long-term current use of insulin (HC) Take 1 Tablet (1,000 mg) by mouth 2 times daily with meals. 180 tablet. 3 10/22/2020 Active atorvastatin (LIPITOR) 20 mg tabletIndications:Mi xed hyperlipidemia TAKE 1 TABLET BY MOUTH EVERYDAY AT BEDTIME 30 Tablet 0 11/24/2021 Active Active Problems Problem Noted Date Diagnosed Date Type 2 diabetes mellitus 03/15/2020 Reactive airways dysfunction syndrome without co mplication 12/14/2015 Resolved Problems Problem Noted Date Diagnosed Date Resolved Date Reactive airways dysfunction syndrome with acute exacerbation 06/09/2015 12/14/2015 Immunizations Name Administration Dates Next Due Hepatitis B (Adult) 02/20/2008,03/20/2007 Hepatitis B (Peds) 06/11/1999 Influenza Virus, Unspecified 04/16/2018, 04/10/2016,03/16/2014,05/06/2013, 03/28/2011,04/04/2010,03/04/2009 Influenza, IIV3 (Age >=3 years) 03/24/2015,03/11 MMR 03/20/2007 Td (Age >=7 Years) 06/11/2005 [...] Tobacco Use Types Packs/Day Years Used Date Smoking Tobacco: Never Smokeless Tobacco: Never Tobacco Cessation:Counseling Given: Yes Alcohol Use Standard Drinks/Week Comments Yes 0 (1 standard drink = 0.6 oz pur e alcohol) PHQ-2 Answer Date Recorded PHQ-2 TOTAL SCORE 1 03/15/2020 Social Connections Answer Date Recorded Frequency of Communication with Friends and Fami ly Not on file 06/11/2021 Financial Resource Strain Answer Date R ecorded Difficulty of Paying Living Expenses Not on file 06/11/2021 Difficulty of Paying Living Expenses Not on file 06/11/2021 Sex and Gender Information Value Date Recorded Sex Assigned at Not on file Gender Identity Not on file Sexual Orientation Not on file Obstetrics History Para Term AB IAB SAB Ectopic Multiple Livin g Live Births 0 0 0 0 0 0 0 0 Last Filed Vital Signs Vital Sign Reading Time Taken Comments Blood Pressure 120/77 10/18/2020 2:11 PM CDT Pulse 83 10/18/2020 2:11 PM CDT Temperature 37.1 ??C (98.8 ??F) 10/18/2020 2:11 PM CD T Respiratory Rate 18 12/14/2015 10:19 AM CDT Oxygen Saturation 98% 10/18/2020 2:11 PM CDT Inhaled Oxygen Concentration - - Weight 84.9 kg (187 lb 3.2 oz) 10/18/2020 2:11 P M CDT Height 152.4 cm (5') 10/18/2020 2:11 PM CDT Body Mass Index 36.56 10/18/2020 2:11 PM CDT Plan of Treatment Health Maintenance Due Date Last Done Comments HIV for age 15-65 1989 Hepatitis C screening for age 18-79 1992 Colonoscopy through age 75 12/13/2019 Mammogram for age 45-75 12/13/2019 Depression screening for age 12+ 03/15/2021 03/15/2020, 03/15/2020 Tetanus booster 03/30/2021 03/30/2011, 06/11/2005 BMI (ht and wt on same day) for age 18+ 10/18/2021 10/18/2020, 03/15/2020, 12/14/2015, Additional history exists COVID-19 vaccine series (2022- season) 2023 12/03/2020, 11/11/2020 Influenza for age 9-49 02/09/2023 8, 04/10/2016, 03/24/2015, Additional history exists Pap test for age 21-65 10/17/2024 10/17/2021, 2021 Lipids for age 45-75 10/18/2025 10/18/2020 Tdap Completed 03/30/2011 Pneumococcal series for age 6-64 Aged Out No longer eligible based on patient's age to complete this topic Care Teams Medicare Biller Relationship Specialty Start Date End Date Card, Jeff Brantley MD 06/07/15
[2023-06-24 23:03] VITALS: O2SAT 98
[2023-06-24] MEDS: ONDANSETRON 2 MG/ML inj 4 MG IVP (23:05)
[2023-06-24] MEDS: 0.9 % SODIUM CHLORIDE 500 ML 500 ML IV (23:05)
[2023-06-24] MEDS: fentaNYL 100 MCG/2 ML inj 50 MCG IVP (23:05)
[2023-06-24] MEDS: KETOROLAC 15 MG/ML inj IVP (23:05)
== END 2023-06-24 23:43 | disposition home or self-care (01) ==
PROVIDERS: Emergency Provider Family Medicine; PCP Family Medicine
DX: K64.5 Perianal venous thrombosis (principal)
CPT/HCPCS: 46083; 94761; 96374; 96375; 99283; 99284; J1885; J2405; J3010; J7030

== ENCOUNTER 2023-06-25 06:59 | Emergency (ER) | payer OTHER, SELFPAY ==
[2023-06-25 07:03] VITALS: BP 112/65; PULSE 88; RESP 18; TEMP 36.7; O2SAT 97; O2SAT 98; BMI 25.4
--- NOTE | 2023-06-25 07:41 | ED.NURSE ---
patient changing into a gown and Dr. Young okayed for patient to take own Oxy. given some water to take medication.
--- OUTSIDE RECORDS SUMMARY | 2023-06-25 07:59 | XMS_ITS | Clinical Summary ---
Author Name Unknown Organization [facility] Address [place], [place] [address] Care Team Providers Care Cold Meat Chef Name Role Phone Card, Jeff Brantley MD Unavailable Unavailable Allergies Active Allergy Reactions Criticality Noted Date Comments Avocado Hives Bee Venom Protein (Honey Bee) Edema,Hives High 03/22 Prochlorperazine 11/17/2007 Latex Hives,Rash High 01/13/2011 Rash, Hives, skin peels off Morphine Rash,Edema Unlisted Allergen (Include Detail In Comments) Hives COCONUT Sumatriptan 11/17/2007 Medications Medication Sig Dispensed Refills Start Date End Date Status albuterol HFA (PRO-AIR,VENTOLIN,DC OVENTIL) 90 mcg/actuation inhaler Inhale 2 Puffs [...] age to complete this topic Care Teams Cold Meat Chef Relationship Specialty Start Date End Date Card, Jeff Brantley MD 06/07/15
[2023-06-25] MEDS: LIDOCAINE/EPINEP/TETRACAINE 3 ML GEL..ML. TOPICAL (08:27)
--- NOTE | 2023-06-25 08:31 | ED.GENADULT ---
HPI - General Adult General Date Seen: 06/25/23 Chief complaint: Unspecified Complaint, Adult Stated complaint: Pain- seen earlier Time Seen by Provider: 06/25/23 08:08 Source: patient Mode of arrival: ambulatory Limitations: no limitations History of Present Illness HPI narrative: Patient is a 47-year-old female who was recently seen in the emergency department for about 10 hours ago for a thrombosed hemorrhoid. The hemorrhoid was removed issues doing well up until about 4 a.m. when she had another bowel movement and she knows the pain came back. She Also noticed she had stopped draining from the hemorrhoid. states the pain is back and she believes she has a thrombosed hemorrhoid again. Denies any other injuries. No other concerns noted. Did take a dose of oxycodone that she was Just prescribed. Related Data Previous Rx's Medication Instructions Recorded dextroamphetamine-amphetamine 15 15 mg PO QDAY #30 tabs 02/06/23 mg tablet dextroamphetamine-amphetamine 15 15 mg PO QDAY #30 tabs 02/06/23 mg tablet (Adderall) dextroamphetamine-amphetamine 20 20 mg PO QDAY #30 tabs 02/06/23 mg tablet dextroamphetamine-amphetamine 20 20 mg PO QDAY #30 tabs 02/06/23 mg tablet (Adderall) albuterol sulfate 90 mcg/actuation 2 inh inhalation Q2-3H PRN Wheeze 02/20/23 aerosol inhaler #8.5 grams epinephrine 0.3 mg/0.3 mL 0.3 ml IM Q5-15M PRN #2 ea 02/20/23 injection, auto-injector (EpiPen 2-Ren) racepinephrine 2.25 % solution for 0.5 ml inhalation Q2H PRN 02/20/23 nebulization laryngospasm/throat tightness #6 ea blood-glucose sensor (Dexcom G6 #9 ea 04/02/23 Sensor device) blood-glucose transmitter (Dexcom #1 ea 04/02/23 G6 Transmitter device) estradiol 0.01% (0.1 mg/gram) 0.5 g vaginal 2XW #42.5 grams 04/10/23 vaginal cream (Estrace) ondansetron 8 mg disintegrating 8 mg PO Q8H PRN nausea and 04/18/23 tablet vomiting #30 tabs estradiol 0.05 mg/24 hr semiweekly 1 patch transdermal 2XW #8 ea 05/07/23 transdermal patch (Vivelle-Dot) progesterone micronized 100 mg 100 mg PO QHS #90 caps 05/07/23 capsule (Prometrium) azithromycin 250 mg tablet See Rx Instructions PO .COMPLEX #6 05/11/23 tabs semaglutide 2 mg/dose (8 mg/3 mL) 2 mg (0.75 mL) subcut QWEEK #3 mL 06/20/23 subcutaneous pen injector Allergies Allergy/AdvReac Type Severity Reaction Status Date / Time latex Allergy Severe Verified 06/20/23 08:13 morphine Allergy Severe Verified 06/20/23 08:13 sumatriptan Allergy Severe Unknown Verified 06/20/23 08:13 metoclopramide Allergy Mild Unknown Verified 06/20/23 08:13 nickel Allergy Mild Unknown Verified 06/20/23 08:13 prochlorperazine Allergy Mild Unknown Verified 06/20/23 08:13 Review of Systems Narrative: Pertinent systems reviewed and negative PFSH [facility] Medical History Sinusitis ?J32.9 - Chronic sinusitis, unspecified (ICD-10) Rotator cuff tear, left ?M75.102 - Unspecified rotator cuff tear or rupture of left shoulder, not specified as traumatic (ICD-10) Mixed hyperlipidemia ?E78.2 - Mixed hyperlipidemia (ICD-10) ADHD, predominantly inattentive type ?F90.0 - Attention-deficit hyperactivity disorder, predominantly inattentive type (ICD-10) Type 2 diabetes mellitus without complication, with no history of insulin use ?E11.9 - Type 2 diabetes mellitus without complications (ICD-10) Perimenopausal symptoms ?N95.1 - Menopausal and female climacteric states (ICD-10) MERCEDES (stress urinary incontinence, female) ?N39.3 - Stress incontinence (female) (male) (ICD-10) Greater trochanteric bursitis of right hip ?M70.61 - Trochanteric bursitis, right hip (ICD-10) History of anemia ?Z86.2 - Personal history of diseases of the blood and blood-forming organs and certain disorders involving the immune mechanism (ICD-10) Surgical History History of appendectomy ?Z90.49 - Acquired absence of other specified parts of digestive tract (ICD-10) History of endometrial ablation (11/08/21) ?Z98.890 - Other specified postprocedural states (ICD-10) Status post arthroscopy of right shoulder (10/21/20) ?Z98.890 - Other specified postprocedural states (ICD-10) History of laparoscopy (~1990) ?Z98.890 - Other specified postprocedural states (ICD-10) History of bladder suspension procedure ?Z98.890 - Other specified postprocedural states (ICD-10) ?Z87.448 - Personal history of other diseases of urinary system (ICD-10) Status post arthroscopy of left shoulder (01/09/22) ?Z98.890 - Other specified postprocedural states (ICD-10) History of gastric bypass ?Z98.84 - Bariatric surgery status (ICD-10) History of cholecystectomy ?Z90.49 - Acquired absence of other specified parts of digestive tract (ICD-10) Family History Father Diabetes Paternal Grandmother Diabetes Other Breast cancer Colon cancer Depression High cholesterol Osteoporosis Seizure disorder Social History Narrative: , 3 children. Lives in [place]. [employer]. 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 Non-smoker. No illicit drug use. Cross fit Smoking Status: Never smoker Do you use any of these nicotine containing products: None How often do you have a drink containing alcohol: monthly or less How often do you have six or more drinks on one occasion: Never AUDIT-C Alcohol total score: 1 Non-prescribed substance use: denies use Little interest or pleasure in doing things: not at all Feeling down, depressed, or hopeless: not at all Exam Narrative: Exam Narrative: Const: Well-nourished, Well-developed, in mild distress Eyes: PERRL, no conjunctival injection, and symmetrical lids HENT: Atraumatic external nose and ears. Moist mucous membranes. GI: Nontender/Nondistended, No rebound or guarding.Thrombosed hemorrhoid seen MSK:Extremities w/o deformity, Normal Active ROM Skin: Warm, Dry. No rashes or lesions. Neuro: Normal Muscle tone, No focal neurological deficits. Psych: Awake, Alert, & Oriented x3. Appropriate mood and affect. Const: Vital Signs, click to edit/add: Vital Signs - 24 hr 06/25/23 07:03 06/25/23 07:03 Temperature 98.0 F Pulse Rate [Pulse Oximeter] 88 Respiratory Rate 18 Respiratory Rate [ Rectum] 18 Blood Pressure [Ri ght Upper Arm] 112/65 Pulse Oximetry 98 Oxygen Delivery Me thod Room Air Course Vital Signs Vital signs: Initial Vital Signs Temperature 98.0 F 06/25/23 07:03 Temperature Source Temporal Artery Scan 06/25/23 07:03 Pulse Rate 88 06/25/23 07:03 Respiratory Rate 18 06/25/23 07:03 Blood Pressure 112/65 06/25/23 07:03 Blood Pressure Mean 80 06/25/23 07:03 Blood Pressure Position Sitting 06/25/23 07:03 Pulse Oximetry 98 06/25/23 07:03 Oxygen Delivery Method Room Air 06/25/23 07:03 Vital Signs Temperature 98.0 F 06/25/23 07:03 Pulse Rate 88 06/25/23 07:03 Respiratory Rate 18 06/25/23 07:03 Blood Pressure 112/65 06/25/23 07:03 Pulse Oximetry 98 06/25/23 07:03 Oxygen Delivery Method Room Air 06/25/23 07:03 Temperature 98.0 F 06/25/23 07:03 Pulse Rate 88 06/25/23 07:03 Respiratory Rate 18 06/25/23 07:03 Blood Pressure 112/65 06/25/23 07:03 Pulse Oximetry 98 06/25/23 07:03 Oxygen Delivery Method Room Air 06/25/23 07:03 Medications Administered Medications: Discontinued Medications Generic Name Dose Route Start Last Admin Trade Name Freq PRN Reason Stop Dose Admin Lidocaine/Epinephrine/Tetracaine 3 ml 06/25/23 08:22 06/25/23 08:27 Lidocaine/Epinep/Tetracaine 3 Ml Gel..Ml. TOPICAL 06/25/23 08:23 3 ml ONCE ONE Administration Medical Decision Making MDM Narrative Medical decision making narrative: patient is a 47-year-old female presenting to emergency department for a thrombosed hemorrhoid. She had it initially evacuated late last night but she says it got worse again today. I did a perianal block for the hemorrhoid and she states that improved the symptoms. I than opened up the incision site again and was able to remove more of the clot. She will be discharged home with some more oxycodone informed to follow-up outpatient. She is aware of this and is agreeable with this plan. Discharge Plan Discharge Clinical Impression: External hemorrhoid, thrombosed Patient Disposition: Home, Self-Care Condition: Improved Instructions: Hemorrhoids (DC) Additional Instructions: If you continue to have pain I would recommend following up with Dr. Ladd. otherwise follow-up with your primary care provider. Return for new or worsening symptoms. removed pressure dressing in 12 hours Prescriptions: No Action estradiol [Estrace] 0.01 % (0.1 mg/gram) cream 0.5 g vaginal 2XW Qty: 42.5 3RF Rx Instructions: Use nightly for 2 weeks, then twice weekly. May apply with finger. progesterone micronized [Prometrium] 100 mg capsule 100 mg PO QHS Qty: 90 4RF estradiol [Vivelle-Dot] 0.05 mg/24 hr patch semiweekly 1 patch transdermal 2XW Qty: 8 12RF Rx Instructions: apply 1 patch for 3 days alternating with 1 patch for 4 days each week for 3 wks per 4-wk cycle azithromycin 250 mg tablet See Rx Instructions PO .COMPLEX Qty: 6 0RF Rx Instructions: For 250 mg dose pack: take 500 mg today (day 1), then 250 mg for 4 days (days 2-5) PO racepinephrine 2.25 % solution for nebulization 0.5 ml inhalation Q2H PRN (Reason: laryngospasm/throat tightness) Qty: 6 1RF Rx Instructions: dilute in 3 mL saline and administer via nebulizer over 15 mins albuterol sulfate 90 mcg/actuation HFA aerosol inhaler 2 inh inhalation Q2-3H PRN (Reason: Wheeze) Qty: 8.5 2RF Rx Instructions: Use with spacer if possible epinephrine [EpiPen 2-Ren] 0.3 mg/0.3 mL auto-injector 0.3 ml IM Q5-15M PRNQty: 2 0RF Rx Instructions: do not exceed 3 doses per episode dextroamphetamine-amphetamine 15 mg tablet 15 mg PO QDAY Qty: 30 0RF dextroamphetamine-amphetamine 20 mg tablet 20 mg PO QDAY Qty: 30 0RF dextroamphetamine-amphetamine [Adderall] 15 mg tablet 15 mg PO QDAY Qty: 30 0RF dextroamphetamine-amphetamine [Adderall] 20 mg tablet 20 mg PO QDAY Qty: 30 0RF (DME) Dexcom G6 Transmitter Device See Rx Instructions .Route Qty: 1 3RF Rx Instructions: Change every 3 months (DME) Dexcom G6 Sensor Device See Rx Instructions .Route Qty: 9 3RF Rx Instructions: Change every 10 days ondansetron 8 mg tablet,disintegrating 8 mg PO Q8H PRN (Reason: nausea and vomiting) Qty: 30 1RF semaglutide 2 mg/dose (8 mg/3 mL) pen injector 2 mg subcut QWEEK Qty: 3 2RF Follow Up/Referrals: Misael Hobbs MD [Primary Care Provider] - Stand Alone Forms: MyHealth Info Instructions
[2023-06-25 09:03] VITALS: BP 112/78; PULSE 82; RESP 18; O2SAT 99
--- NOTE | 2023-06-25 16:41 | ED.NURSE ---
patient called back due to the hemorrhoid is returned just as anger and inflamed. has received oxycodone to take at home and instructed to continue with sitz baths, ice, witch danyell pads to site. Asked the MD working in ED of issue as was lanced x 2. patient is tearful and encouraged to make an appointment with surgeon
== END 2023-06-25 09:39 | disposition home or self-care (01) ==
PROVIDERS: Emergency Provider Student in an Organized Health Care Education/Training Program; PCP Family Medicine
DX: K64.5 Perianal venous thrombosis (principal)
CPT/HCPCS: 46320; 99283

== ENCOUNTER 2023-08-24 11:00 | Outpatient (CLI) | payer OTHER, SELFPAY | END 2023-08-24 11:01 | disposition home or self-care (01) | LOC: NFLDREF 11:02 | PROVIDERS: PCP Family Medicine; Visit Provider Family Medicine | DX: Z13.228 Encounter for screening for other metabolic disorders (principal) | CPT/HCPCS: 80048 ==

== ENCOUNTER 2023-09-04 06:04 | Day surgery (SDC) | payer OTHER, SELFPAY ==
[2023-09-04] VITALS (13 sets, daily range): BP systolic 91–104; BP diastolic 47–69; PULSE 63–70; RESP 14–18; TEMP 36.1–36.8; O2SAT 90–98; BMI 26.6
[2023-09-04 06:21] LABS: Ur HCG Qualitative* Negative (Negative)
[2023-09-04] MEDS: SODIUM CHLORIDE 0.9 % (FLUSH) 10 ML SYRINGE IVF (06:30)
[2023-09-04] MEDS: LACTATED RINGERS 1000 ML 1,000 ML 100 ML IV (06:30)
[2023-09-04] MEDS: SCOPOLAMINE 1 MG/3 DAY PATCH 1 PATCH TRANSDERMA (06:58)
--- NOTE | 2023-09-04 07:20 | W.ANESCHARGE ---
Anesthesia Charges Start Date/Time Anesthesia Start Date: 09/04/23 Anesthesia Start Time: 08:15 Stop Date/Time Anesthesia Stop Date: 09/04/23 Anesthesia Stop Time: 08:57
--- NOTE | 2023-09-04 07:27 | W.PM.H&PU ---
History & Physical Update History & Physical Update H&P Reviewed and patient assessed: No changes noted
--- NOTE | 2023-09-04 07:31 | PM.GSPRC ---
Operative Note Date of procedure: 09/04/23 Pre-op diagnosis: 1. Symptomatic external hemorrhoid. Post-op diagnosis: Same Type of Procedure: 1. One quadrant external and internal hemorrhoidectomy. Indications: 47-year-old female was seen in clinic a few times for evaluation of enlarged external hemorrhoid. Patient underwent I&D with clot removal of the external hemorrhoid at least 3 times. Her incision finally healed and the pain has resolved. However, she feels extra tissue outside of her anus that is making it difficult for her to have a bowel movement. She describes stool being trapped in the redundant tissue making it difficult to keep her in is clean. She has been taking showers after each bowel movement and using wet wipes when she is not at home. On clinical exam patient had moderately enlarged redundant external hemorrhoid with associated skin tag posterior midline. There was no evidence of thrombosed external hemorrhoid. Given patient's clinical history and her difficulty cleaning herself, I recommended to proceed with 1 quadrant hemorrhoidectomy. The procedure was discussed in detail. The risks associated procedure including infection, bleeding, temporary incontinence, and recurrence of hemorrhoids were all discussed with the patient, she agreed to proceed. Procedure Description: After discussing the risks and benefits of the procedure, the patient signed informed consent.? The operative site was marked and the patient was brought to the operating room. Patient was intubated by Anesthesia and placed prone on the operating table with all pressure points padded.? The operative site was then prepped and draped in the usual sterile fashion.? A time-out was then performed. External examination, digital rectal examination, and anoscopic examination were all done and revealed significantly redundant external and internal hemorrhoidal tissue posterior midline. I then proceeded with excising posterior midline redundant hemorrhoid tissue. An elliptical incision was made with a needle tip electrocautery from the anoderm up into the anal canal just above the dentate line. Careful dissection of the hemorrhoid complex was done in the plane between the internal anal sphincter and the submucosal vascular plexus up to just above the dentate line in each quadrant described above. Having established the proper plane, the hemorrhoidal tissue was then excised with the Ligasure device and not sent to Pathology for analysis since it had an appearance of normal hemorrhoidal tissue. Care was taken to preserve mucosa for a tension-free closure. The internal sphincter fibers were visualized at the base of the wound and were intact. The wound was closed in a running locked manner starting at the apex (proximal aspect of elliptical excision) with 3-0 chromic suture, coming out to the anoderm and then running back up in a simple fashion and tying down at the apex. Hemostasis was excellent. Sterile gauze and ABD pad were applied over the anus. ? The patient was then woken and transported to the recovery area in stable condition. ? The patient tolerated the procedure well. Findings: Redundant external and internal hemorrhoid posterior midline. Anesthesia: GETA Surgeon: Brendon Ladd MD Estimated blood loss (mL): 2 Condition: stable Disposition: PACU
[2023-09-04] MEDS: BUPIVACAINE 0.25 %/EPI 1:200K 30 ml 10 ML INJECTION (07:45)
--- NOTE | 2023-09-04 07:54 | SUR.OPER ---
PATIENT QUESTIONS ANSWERED SATISFACTORILY PREOPERATIVELY. PATIENT BROUGHT TO OR #4 PER CART. Patient positioned prone on OR #4 bed. The perioperative team supported arms bilaterally on arm boards. Final approval of positioning by surgeon. SURGEON DECLINES THE OFFER TO SEND EXCISED TISSUES TO PATHOLOGY.
[2023-09-04] MEDS: HYDROCODONE-ACETAMIN 5-325 MG 1 TAB PO (09:00)
--- NOTE | 2023-09-04 09:15 | W.ANESCHARGE ---
Anesthesia Charges Start Date/Time Anesthesia Start Date: 09/04/23 Anesthesia Start Time: 07:27 Stop Date/Time Anesthesia Stop Date: 09/04/23 Anesthesia Stop Time: 08:14
[2023-09-04] MEDS: KETOROLAC 30 MG/ML inj IVP (09:40)
--- NOTE | 2023-09-04 11:39 | W.ANESCHARGE ---
Anesthesia Charges Start Date/Time Anesthesia Start Date: 09/04/23 Anesthesia Start Time: 07:27 Stop Date/Time Anesthesia Stop Date: 09/04/23 Anesthesia Stop Time: 08:14
== END 2023-09-04 10:00 | disposition home or self-care (01) ==
PROVIDERS: Anesthesiology; PCP Family Medicine; Visit Provider Surgery
PROC: (CPT 46255; principal; 2023-09-04 07:30)
DX: K64.8 Other hemorrhoids (principal); K64.4 Residual hemorrhoidal skin tags
CPT/HCPCS: 46255; 00902; 81025; A9270; J0330; J1100; J1885; J2250; J2371; J2405; J2704; J3010; J3490; J7120

== ENCOUNTER 2023-11-28 11:12 | Outpatient (CLI) | payer OTHER, SELFPAY ==
--- NOTE | 2023-11-28 09:35 | CRLHL7_ITS ---
For Patients: As a result of the Century Cures Act, medical imaging exams and procedure reports are released immediately into your electronic medical record. You may view this report before your referring provider. If you have questions, please contact your health care provider. BILATERAL SCREENING MAMMOGRAM WITH COMPUTER-AIDED DETECTION AND TOMOSYNTHESIS TECHNIQUE: CC and MLO views were obtained. These mammographic images have been obtained using full-field digital technique. These mammographic images were interpreted with the benefit of computer-aided detection. Breast tomosynthesis was used in this interpretation. COMPARISON FILM: None. This is a baseline study. FINDINGS: The breasts are heterogeneously dense, which may obscure small masses. IMPRESSION: There is no radiographic evidence for malignancy. ASSESSMENT: BI-RADS Category 1: Negative RECOMMENDATION: Routine screening mammogram in 1 year. A lay language report of this examination will be provided to the patient. MISAEL ROGERS M.D. Diagnostic Radiologist [email or web address] Transcribed: 2:[address]/Dictated by: Misael Rogers MD @ 11/28/2023 12:00:00 PM (Electronically Signed)
--- OUTSIDE RECORDS SUMMARY | 2023-11-28 11:14 | XMS_ITS | Clinical Summary ---
Author Organization [facility] Address [place], [place] [address] Care Team Providers Care Early Childhood Education Coordinator Name Role Phone Card, Jeff Brantley MD Unavailable Unavailable Allergies Active Allergy Reactions Criticality Noted Date Comments Avocado Hives Bee Venom Protein (Honey Bee) Edema,Hives High 03/22 Prochlorperazine 11/17/2007 Latex Hives,Rash High 01/13/2011 Rash, Hives, skin peels off Morphine Rash,Edema Unlisted Allergen (Include Detail In Comments) Hives COCONUT Sumatriptan 11/17/2007 Medications Medication Sig Dispensed Refills Start Date End Date Status albuterol HFA (PRO-AIR,VENTOLIN,IA OVENTIL) 90 mcg/actuation inhaler Inhale 2 Puffs [...] Take 750 mg by mouth once daily. 11/21/2019 Active multivitamins with minerals tablet Take 1 Tab by mouth. Active blood sugar diagnostic (FREESTYLE LITE STRIPS) strip by Not Applicable route. 10/22/2019 Active fluticasone (50 mcg per actuation) nasal solution (FLONASE) USE TWO SPRAYS IN EACH NOSTRIL EVERY DAY 07/21/2019 Active FREESTYLE RENEE 14 DAY READER misc 1 EACH 4 TIMES A DAY 07/22/2019 Active atomoxetine (Strattera) 25 mg capsule Take 1 Capsule (25 mg) by mouth once daily. 0 10/18/2020 Active methylphenidate HCl (Concerta) 36 mg Extended-Release tabletIndications:At tention deficit hyperactivity disorder (ADHD), unspecified ADHD type Take 1 Tablet (36 mg) by mouth once daily. 30 Tablet 12/17/2020 Active metFORMIN (GLUCOPHAGE) 1,000 mg tabletIndications:Ty pe 2 diabetes mellitus with hyperglycemia, without long-term current use of insulin (HC) Take 1 Tablet (1,000 mg) by mouth 2 times daily with meals. 180 tablet. 3 10/22/2020 Active atorvastatin (LIPITOR) 20 mg tabletIndications:Mi xed hyperlipidemia TAKE 1 TABLET BY MOUTH EVERYDAY AT BEDTIME 30 Tablet 11/24/2021 Active Active Problems Problem Noted Date [...] 12/14/2015, Additional history exists COVID-19 vaccine series (3 - 2022-24 season) 2023 12/03/2020, 11/11/2020 Influenza for age 9-49 02/10/2024 8, 04/10/2016, 03/24/2015, Additional history exists Pap test for age 21-65 10/17/2024 10/17/2021, 2021 Lipids for age 45-75 10/18/2025 10/18/2020 Tdap Completed 03/30/2011 Pneumococcal series for age 6-64 Aged Out No longer eligible based on patient's age to complete this topic Procedures Procedure Name Priority Date/Time Associated Diagnosis Comments HPV THIN PREP Routine 10/17/2021 12:00 PM CDT LIPID PANEL W REFLEX MEASURED LDL Routine 10/18/2020 2:58 PM CDT Controlled type 2 diabetes mellitus without complication, without long-term current use of insulin (HC) from Last 3 Months or Most Recently Relevant to Health Maintenance Results * HPV HIGH RISK (10/17/2021 12:00 PM CDT) TYPE 16 Negative Negative 10/20/2021 10:50 AM CDT [facility] TYPE 18 Negative Negative 10/20/2021 10:50 AM CDT [facility] OTHER HIGH RISK TYPES Negative Negative 10/20/2021 10:50 AM CDT [facility] Other (Cervical/Vagina l) 10/17/2021 12:00 PM CDT 10/19/2021 7:56 AM CDT Narrative [facility] - 10/20/2021 10:50 AM CDT HPV types 16, 18, 31, 33, 35, 39, 45, 51, 52, 56, 58, 59, 66 and 68 DNA were undetectable or below the pre-set threshold. Methodology: Gianni Kesha 4800 HPV Test Aminta Razo MD MICROBIOLOGY [facility] [address] [place] [address], [place] * (ABNORMAL) LIPID PANEL W REFLEX MEASURED LDL (10/18/2020 2:58 PM CDT) CHOLESTEROL,TOTAL 300(H) 100 - 199 mg/dL 10/18/2020 11:55 PM CDT [facility] TRIGLYCERIDES 297(H) <150 mg/dL 10/18/2020 11:55 PM CDT [facility] HDL CHOLESTEROL 60 >40 mg/dL 11:55 PM CDT [facility] NON-HDL CHOLESTEROL 240(H) <145 mg/dl 10/18/2020 11:55 PM CDT [facility] CHOL/HDL RATIO 5.00(H) <4.50 10/18/2020 11:55 PM CDT [facility] LDL CHOLESTEROL 181(H) <=130 mg/dL 10/18/2020 11:55 PM CDT [facility] VLDL CHOLESTEROL 59 mg/dL 10/19/19 11:55 PM CDT [facility] PROVIDER ORDERED STATUS RANDOM 10/18/2020 11:55 PM CDT [facility] Blood BLOOD SPECIMEN / Unknown Venipuncture / Unknown 10/18/2020 2:58 PM CDT 10/18/2020 2:58 PM CDT Debby Mar DO CHEMISTRY [facility] [address] [place] [address], from Last 3 Months or Most Recently Relevant to Health Maintenance Care Teams Early Childhood Education Coordinator Relationship Specialty Start Date End Date Card, Jeff Brantley MD 06/07/15
== END 2023-11-28 11:13 | disposition home or self-care (01) ==
LOC: MAMMO 11:12
PROVIDERS: PCP Family Medicine; Visit Provider Family Medicine
DX: Z12.31 Encounter for screening mammogram for malignant neoplasm of breast (principal); R92.2 Inconclusive mammogram
CPT/HCPCS: 77063; 77067

== ENCOUNTER 2024-04-15 17:45 | Outpatient (CLI) | payer OTHER, SELFPAY ==
--- OUTSIDE RECORDS SUMMARY | 2024-04-17 13:30 | XMS_ITS | Clinical Summary ---
Author Organization [employer] [facility] Address [place], [place] [address] Care Team Providers Care Fish Cutter Name Role Phone Card, Jeff Brantley MD Unavailable Unavailable Allergies Active Allergy Reactions Criticality Noted Date Comments Avocado Hives Bee Venom Protein (Honey Bee) Edema,Hives High 03/22 Prochlorperazine 11/17/2007 Latex Hives,Rash High 01/13/2011 Rash, Hives, skin peels off Morphine Rash,Edema Unlisted Allergen (Include Detail In Comments) Hives COCONUT Sumatriptan 11/17/2007 Medications Medication Sig Dispensed Refills Start Date End Date Status albuterol HFA (PRO-AIR,VENTOLIN,UT OVENTIL) 90 mcg/actuation inhaler Inhale 2 Puffs [...] 12/14/2015, Additional history exists COVID-19 vaccine series ( - 2023- season) 2024 12/03/2020, 11/11/2020 Influenza for age 9-49 02/10/2024 8, 04/10/2016, 03/24/2015, Additional history exists Pap test for age 21-65 10/17/2024 10/17/2021, 2021 Lipids for age 45-75 10/18/2025 10/18/2020 Tdap Completed 03/30/2011 Pneumococcal series for age 6-64 Aged Out No longer eligible based on patient's age to complete this topic Procedures Procedure Name Priority Date/Time Associated Diagnosis Comments HPV HIGH RISK Routine 10/17/2021 12:00 PM CDT LIPID PANEL W REFLEX MEASURED LDL Routine 10/18/2020 2:58 PM CDT Controlled type 2 diabetes mellitus without complication, without long-term current use of insulin (HC) from Last 3 Months or Most Recently Relevant to Health Maintenance Results * HPV HIGH RISK (10/17/2021 12:00 PM CDT) TYPE 16 Negative Negative 10/20/2021 10:50 AM CDT [facility] TYPE 18 Negative Negative 10/20/2021 10:50 AM CDT [facility] OTHER HIGH RISK TYPES Negative Negative 10/20/2021 10:50 AM CDT [facility] Other (Cervical/Vagina l) 10/17/2021 12:00 PM CDT 10/19/2021 7:56 AM CDT Narrative [facility] - 10/20/2021 10:50 AM CDT HPV types 16, 18, 31, 33, 35, 39, 45, 51, 52, 56, 58, 59, 66 and 68 DNA were undetectable or below the pre-set threshold. Methodology: Gianni Kesha 4800 HPV Test Aminta Razo MD MICROBIOLOGY [facility] [address] [place] [address], [place] * (ABNORMAL) LIPID PANEL W REFLEX MEASURED LDL (10/18/2020 2:58 PM CDT) CHOLESTEROL,TOTAL 300(H) 100 - 199 mg/dL 10/18/2020 11:55 PM CDT [facility] TRIGLYCERIDES 297(H) <150 mg/dL 10/18/2020 11:55 PM CDT [facility] HDL CHOLESTEROL 60 >40 mg/dL 11:55 PM CDT [facility] NON-HDL CHOLESTEROL 240(H) <145 mg/dl 10/18/2020 11:55 PM CDT [facility] CHOL/HDL RATIO 5.00(H) <4.50 10/18/2020 11:55 PM CDT [facility] LDL CHOLESTEROL 181(H) <=130 mg/dL 10/18/2020 11:55 PM CDT [facility] VLDL CHOLESTEROL 59 mg/dL 10/19/19 11:55 PM CDT [facility] PROVIDER ORDERED STATUS RANDOM 10/18/2020 11:55 PM CDT [facility] Blood BLOOD SPECIMEN / Unknown Venipuncture / Unknown 10/18/2020 2:58 PM CDT 10/18/2020 2:58 PM CDT Debby Mar DO CHEMISTRY [facility] [address] [place] [address], from Last 3 Months or Most Recently Relevant to Health Maintenance Care Teams Fish Cutter Relationship Specialty Start Date End Date Card, Jeff Brantley MD 06/07/15
== END 2024-04-15 17:46 | disposition home or self-care (01) ==
LOC: NFLDREF 04-17 13:28
PROVIDERS: PCP Family Medicine; Referring Provider Family Medicine; Visit Provider Family Medicine
DX: E11.9 Type 2 diabetes mellitus without complications (principal); E78.5 Hyperlipidemia, unspecified
CPT/HCPCS: 80061

== ENCOUNTER 2024-07-09 13:26 | Outpatient (CLI) | payer BC, SELFPAY | END 2024-07-09 13:27 | disposition home or self-care (01) | PROVIDERS: PCP Family Medicine; Visit Provider Obstetrics & Gynecology | DX: N95.1 Menopausal and female climacteric states (principal); R68.82 Decreased libido; Z79.899 Other long term (current) drug therapy | CPT/HCPCS: 84270; 84402; 84403; 84443 ==

== ENCOUNTER 2024-08-14 16:32 | Emergency (ER) | payer BC, SELFPAY ==
--- OUTSIDE RECORDS SUMMARY | 2024-08-14 16:33 | XMS_ITS | Clinical Summary ---
Author Organization [employer] [facility] Address [address] [place] [id number] Care Team Providers Care Hot Blaster Name Role Phone Card, Jeff Brantley MD Unavailable Unavailable Allergies Active Allergy Reactions Criticality Noted Date Comments Avocado Hives Bee Venom Protein (Honey Bee) Edema,Hives High 03/22 Prochlorperazine 11/17/2007 Latex Hives,Rash High 01/13/2011 Rash, Hives, skin peels off Morphine Rash,Edema Unlisted Allergen (Include Detail In Comments) Hives COCONUT Sumatriptan 11/17/2007 Medications albuterol HFA (PRO-AIR,VENTOLIN, PROVENTIL) 90 mcg/actuation inhaler Inhale 2 Puffs by mouth every 6 hours if needed. 0 5 Active albuterol-ipratrop ium (DUONEB) (2.5-0.5 mg) in 3 mL NEBULIZATION solution 1 neb as needed 0 5 Active EPINEPHRine, racemic, (S-2) 2.25 % nebulizer solution 1 neb as needed 0 5 Active fluticasone-salmet simone (ADVAIR DISKUS) 500-50 mcg/Dose diskus inhalerIndications :Reactive airways dysfunction syndrome, severe persistent, with acute exacerbation (HC) Inhale 1 Puff by mouth 2 times daily. 3 Inhaler 3 5 Active budesonide (PULMICORT) 0.5 mg/2 mL neb suspension Inhale 2 mL via a nebulizer 2 times daily. 0 6 Active NebulizerIndicatio ns:Reactive airways dysfunction syndrome with acute exacerbation (HC) Nebulizer, neb kit, neb cup, tubing and mask. Duration of need 99 months. 1 Device 0 6 Active medication order composerIndication s:Reactive airways dysfunction syndrome with acute exacerbation (HC) oximeter 1 Device 0 6 Active metFORMIN (GLUCOPHAGE XR) 750 mg Extended-Release tablet Take 750 mg by mouth once daily. 0 Active multivitamins with minerals tablet Take 1 Tab by mouth. Active blood sugar diagnostic (FREESTYLE LITE STRIPS) strip by Not Applicable route. 0 Active fluticasone (50 mcg per actuation) nasal solution (FLONASE) USE TWO SPRAYS IN EACH NOSTRIL EVERY DAY 0 Active FREESTYLE RENEE 14 DAY READER misc 1 EACH 4 TIMES A DAY 0 Active atomoxetine (Strattera) 25 mg capsule Take 1 Capsule (25 mg) by mouth once daily. 0 1 Active methylphenidate HCl (Concerta) 36 mg Extended-Release tabletIndications: Attention deficit hyperactivity disorder (ADHD), unspecified ADHD type Take 1 Tablet (36 mg) by mouth once daily. 30 Tablet 1 Active metFORMIN (GLUCOPHAGE) 1,000 mg tabletIndications: Type 2 diabetes mellitus with hyperglycemia, without long-term current use of insulin (HC) Take 1 Tablet (1,000 mg) by mouth 2 times daily with meals. 180 tablet. 3 1 Active atorvastatin (LIPITOR) 20 mg tabletIndications: Mixed hyperlipidemia TAKE 1 TABLET BY MOUTH EVERYDAY AT BEDTIME 30 Tablet 2 Active Active Problems Problem Noted Date Diagnosed [...] Paying Living Expenses Not on file 06/11/2021 Comments No Sex and Gender Information Value Date Recorded Sex Assigned at Not on file Legal Sex Female 6:46 AM [employer] WORK[employer] Gender Identity Not on file Sexual Orientation Not on file Obstetrics History Para Term AB IAB SAB Ectopic Multiple Livin g Live Births 0 0 0 0 0 0 0 0 Last Filed Vital Signs Vital Sign Reading Time Taken Comments Blood Pressure 120/77 10/18/2020 2:11 PM CDT Pulse 83 10/18/2020 2:11 PM CDT Temperature 37.1 C (98.8 F) 10/18/2020 2:11 PM CDT Respiratory Rate 18 [...] 12/14/2015, Additional history exists COVID-19 vaccine series (2023- season) 2024 12/03/2020, 11/11/2020 Influenza for age 9-49 02/10/2024 8, 04/10/2016, 03/24/2015, Additional history exists Pap test for age 21-65 10/17/2024 10/17/2021, 2021 Lipids for age 45-75 10/18/2025 10/18/2020 Tdap Completed 03/30/2011 Pneumococcal series for age 6-49 Aged Out No longer eligible based on [...] 16 Negative Negative 10/20/2021 10:50 AM CDT [facility] TYPE 18 Negative Negative 10/20/2021 10:50 AM CDT [facility] OTHER HIGH RISK TYPES Negative Negative 10/20/2021 10:50 AM CDT [facility] Other (Cervical/Vagina l) 10/17/2021 12:00 PM CDT 10/19/2021 7:56 AM CDT Narrative [facility] - 10/20/2021 10:50 AM CDT HPV types 16, 18, 31, 33, 35, 39, 45, 51, 52, 56, 58, 59, 66 and 68 DNA were undetectable or below the pre-set threshold. Methodology: Gianni Kesha 4800 HPV Test us Aminta Razo MD MICROBIOLOGY Final Resu lt [facility] [address] [place] [address], [place] * (ABNORMAL) LIPID PANEL W REFLEX MEASURED LDL (10/18/2020 2:58 PM CDT) CHOLESTEROL,TOTAL 300(H) 100 - 199 mg/dL 10/18/2020 11:55 PM CDT [facility] TRIGLYCERIDES 297(H) <150 mg/dL 10/18/2020 11:55 PM CDT [facility] HDL CHOLESTEROL 60 >40 mg/dL 11:55 PM CDT [facility] NON-HDL CHOLESTEROL 240(H) <145 mg/dl 10/18/2020 11:55 PM CDT [facility] CHOL/HDL RATIO 5.00(H) <4.50 10/18/2020 11:55 PM CDT [facility] LDL CHOLESTEROL 181(H) <=130 mg/dL 10/18/2020 11:55 PM CDT [facility] VLDL CHOLESTEROL 59 mg/dL 10/19/19 11:55 PM CDT [facility] PROVIDER ORDERED STATUS RANDOM 10/18/2020 11:55 PM CDT [facility] Blood BLOOD SPECIMEN / Unknown Venipuncture / Unknown 10/18/2020 2:58 PM CDT 10/18/2020 2:58 PM CDT us Debby Mar DO CHEMISTRY Final Result [facility] [address] [place] [address], from Last 3 Months or Most Recently Relevant to Health Maintenance Insurance [facility] [place] [id number] [employer] Care Teams Hot Blaster Relationship Specialty Start Date End Date Card, Jeff Brantley MD 06/07/15
[2024-08-14 16:45] VITALS: BP 125/77; PULSE 82; RESP 20; TEMP 36.6; O2SAT 100
--- NOTE | 2024-08-14 17:21 | ED.GENADULT ---
HPI - General Adult General Chief complaint: Syncope/Fainted Stated complaint: passed out, blood sugar issue Time Seen by Provider: 08/14/24 16:53 History of Present Illness HPI narrative: This 48-year-old female comes in reporting a syncopal event that occurred prior to arrival. She states that she was sitting on the floor and grew lightheaded and then had brief loss of consciousness. She did not injure herself. Her daughter is with her in the room and states that she saw that she became pale when this event occurred. The patient herself describes numerous episodes of feeling lightheaded over the past week or so. She states that it typically begins with feeling a hot flash and then she gets tingly and cold feeling and begins to feel lightheaded. This seems to happen whether she is sitting, standing, or ambulating. She has not exercised over the past week because of these symptoms but prior to this she exercised vigorously without symptoms. She does have a history of type 2 diabetes and has been on medication in the past but is now currently diet controlled. She is not on any medications at all. She states that her hemoglobin A1c is between 5.5 and 6.3. She reports a recent visit where her TSH was on the low edge of normal at 0.5. She does not report any chest pain but states that she feels a heaviness sometimes. She does not report any nausea, vomiting, shortness of breath. She did go to an appointment with a dietary server who was assessing her hormone status as she is in the process of menopause currently. She states that she has been wearing a hormone patch for the past couple years but has not done so effectively in these past several days because of her hot flashes where she gets sweaty. Related Data Previous Rx's ?Medication ?Instructions ?Recorded albuterol sulfate 90 mcg/actuation 2 inh inhalation Q2-3H PRN Wheeze 02/20/23 aerosol inhaler #8.5 grams epinephrine 0.3 mg/0.3 mL 0.3 ml IM Q5-15M PRN #2 ea 02/20/23 injection, auto-injector (EpiPen 2-Ren) racepinephrine 2.25 % solution for 0.5 ml inhalation Q2H PRN 02/20/23 nebulization laryngospasm/throat tightness #6 ea blood-glucose sensor (Dexcom G6 #9 ea 10/28/24 Sensor device) blood-glucose transmitter (Dexcom #1 ea 05/22/24 G6 Transmitter device) semaglutide 2 mg/dose (8 mg/3 mL) 2 mg (0.75 mL) subcut QWEEK #3 mL 05/22/24 subcutaneous pen injector (Ozempic) dextroamphetamine-amphetamine 10 10 mg PO BID #60 tabs 06/30/24 mg tablet (Adderall) dextroamphetamine-amphetamine 10 10 mg PO BID #60 tabs 06/30/24 mg tablet (Adderall) dextroamphetamine-amphetamine 10 10 mg PO BID #60 tabs 06/30/24 mg tablet (Adderall) sertraline 100 mg tablet 100 mg PO QDAY #90 tabs 06/30/24 trazodone 50 mg tablet 50 - 100 mg (1 - 2 x 50 mg) PO QHS 06/30/24 PRN insomnia #60 tabs estradiol 0.01% (0.1 mg/gram) 0.5 g vaginal 2XW #42.5 grams 07/09/24 vaginal cream (Estrace) estradiol 0.075 mg/24 hr 1 patch transdermal 2XW #8 ea 07/09/24 semiweekly transdermal patch progesterone micronized 100 mg 100 mg PO QHS #90 caps 07/09/24 capsule (Prometrium) testosterone 50 mg/5 gram (1 %) 5 mg transdermal QAM #150 grams 07/09/24 transdermal gel ondansetron 8 mg disintegrating 8 mg PO Q8H PRN nausea and 07/12/24 tablet vomiting #30 tabs Allergies Allergy/AdvReac Type Severity Reaction Status Date / Time latex Allergy Severe Verified 07/09/24 12:46 morphine Allergy Severe Verified 07/09/24 12:46 sumatriptan Allergy Severe Unknown Verified 07/09/24 12:46 metoclopramide Allergy Mild Unknown Verified 07/09/24 12:46 nickel Allergy Mild Unknown Verified 07/09/24 12:46 prochlorperazine Allergy Mild Unknown Verified 07/09/24 12:46 Review of Systems Status of ROS: Reports: 10 or more systems reviewed and unremarkable except as noted in History and below Narrative: Constitutional: No fevers, no weight gain or loss. Eyes: No discharge. No vision changes. HENT: No congestion, no sore throat, no ear pain. Cardiovascular: No chest pain, no palpitations. Respiratory: No shortness of breath, no wheezes, no cough. Gastrointestinal: No abdominal pain, no vomiting, no diarrhea. Genitourinary: No dysuria, no hematuria. Musculoskeletal: Normal range of motion. Skin: No rashes, no pruritis. Neurological: No weakness, sensory change, speech change. Episodic lightheadedness. Endo/Heme/Allergies: No bruising or bleeding. No polydipsia. Pysch: no suicidality, no anxiety, no insomnia. All other systems reviewed and are negative. [facility] Medical History (Updated 08/14/24 @ 19:33 by Power Kaiser MD) Diabetes ?E11.9 - Type 2 diabetes mellitus without complications (ICD-10) CHEKO (generalized anxiety disorder) ?F41.1 - Generalized anxiety disorder (ICD-10) Rotator cuff tear, left ?M75.102 - Unspecified rotator cuff tear or rupture of left shoulder, not specified as traumatic (ICD-10) Mixed hyperlipidemia ?E78.2 - Mixed hyperlipidemia (ICD-10) ADHD, predominantly inattentive type ?F90.0 - Attention-deficit hyperactivity disorder, predominantly inattentive type (ICD-10) Type 2 diabetes mellitus without complication, with no history of insulin use ?E11.9 - Type 2 diabetes mellitus without complications (ICD-10) Perimenopausal symptoms ?N95.1 - Menopausal and female climacteric states (ICD-10) MERCEDES (stress urinary incontinence, female) ?N39.3 - Stress incontinence (female) (male) (ICD-10) Greater trochanteric bursitis of right hip ?M70.61 - Trochanteric bursitis, right hip (ICD-10) History of anemia ?Z86.2 - Personal history of diseases of the blood and blood-forming organs and certain disorders involving the immune mechanism (ICD-10) Surgical History (Updated 07/10/24 @ 15:02 by Carrie Schmid MD) History of midurethral sling procedure ?Z98.890 - Other specified postprocedural states (ICD-10) S/P hemorrhoidectomy ?Z98.890 - Other specified postprocedural states (ICD-10) ?Z87.19 - Personal history of other diseases of the digestive system (ICD-10) History of appendectomy ?Z90.49 - Acquired absence of other specified parts of digestive tract (ICD-10) History of endometrial ablation (11/08/21) ?Z98.890 - Other specified postprocedural states (ICD-10) Status post arthroscopy of right shoulder (10/21/20) ?Z98.890 - Other specified postprocedural states (ICD-10) History of laparoscopy (~1990) ?Z98.890 - Other specified postprocedural states (ICD-10) History of bladder suspension procedure ?Z98.890 - Other specified postprocedural states (ICD-10) ?Z87.448 - Personal history of other diseases of urinary system (ICD-10) Status post arthroscopy of left shoulder (01/09/22) ?Z98.890 - Other specified postprocedural states (ICD-10) History of gastric bypass ?Z98.84 - Bariatric surgery status (ICD-10) History of cholecystectomy ?Z90.49 - Acquired absence of other specified parts of digestive tract (ICD-10) Family History Father Diabetes Paternal Grandmother Diabetes Other Alcohol dependence Breast cancer Colon cancer Depression High cholesterol Osteoporosis Seizure disorder Social History (Updated 07/10/24 @ 15:03 by Carrie Schmid MD) Narrative: , 3 children. Lives in [place]. Lab/Instant Opinion. Alcohol occasional. Non-smoker. No illicit drug use. Cross fit and triathlons for exercise What is your current living situation?: I presently have a place to live Problems where you live: no known problems In past 12 months, lack of transportation kept you from medical appts, meetings, work, or getting things needed for daily living: no How hard is it for you to pay for the very basics like food, housing, medical care, and heating: not very hard In the past 12 mos, have been you worried that your food would run out before you had money to buy more?: never true In the past 12 mos, the food you bought just didn't last and you didn't have money to buy more?: never true Smoking Status: Never smoker Do you use any of these nicotine containing products: None How often do you have a drink containing alcohol: monthly or less Alcohol type: beer How many standard drinks containing alcohol do you have on a typical day: 1 or 2 How often do you have six or more drinks on one occasion: Never AUDIT-C Alcohol total score: 1 Non-prescribed substance use: denies use Caffeine: Yes How often does anyone, including family, friends and others, physically hurt you: never How often does anyone, including family, friends and others, insult or talk down to you: never How often does anyone, including family, friends and others, threaten you with harm: never How often does anyone, including family, friends and others, scream or curse at you: never Are you using contraception or practicing any form of control: No service: No Exam Narrative: Exam Narrative: Constitutional: Well-developed, well-nourished, no acute distress. HEENT: Normocephalic, atraumatic. Neck: Normal range of motion. Nontender. Supple. Heart: Regular. No murmurs. Normal rate. Intact distal pulses. Lungs: Clear to auscultation. No chest discomfort. No wheezes, rhonchi, or rales. Abdomen: Normal bowel sounds. Nontender. No rebound tenderness. Genitalia: Deferred. Back: No midline tenderness. Normal range of motion. Extremities: Normal range of motion. No injury. Skin: Intact. No rash. Warm. No erythema or pallor. Neurologic: No altered sensation. No weakness. Alert and oriented. Psychiatric: No suicidality. No anxiety or depression. No insomnia. Nursing notes and vitals signs are reviewed. Const: Vital Signs, click to edit/add: Vital Signs - 24 hr 08/14/24 16:45 Temperature 97.9 F Pulse Rate [Pulse Oximeter] 82 Respiratory Rate 20 Blood Pressure [Ri ght Upper Arm] 125/77 Pulse Oximetry 100 Oxygen Delivery Me thod Room Air Course Vital Signs Vital signs: Initial Vital Signs Temperature 97.9 F 08/14/24 16:45 Temperature Source Temporal Artery Scan 08/14/24 16:45 Pulse Rate 82 08/14/24 16:45 Respiratory Rate 20 08/14/24 16:45 Blood Pressure 125/77 08/14/24 16:45 Blood Pressure Mean 93 08/14/24 16:45 Pulse Oximetry 100 08/14/24 16:45 Oxygen Delivery Method Room Air 08/14/24 16:45 Vital Signs Temperature 97.9 F 08/14/24 16:45 Pulse Rate 82 08/14/24 16:45 Respiratory Rate 20 08/14/24 16:45 Blood Pressure 125/77 08/14/24 16:45 Pulse Oximetry 100 08/14/24 16:45 Oxygen Delivery Method Room Air 08/14/24 16:45 Temperature 97.9 F 08/14/24 16:45 Pulse Rate 82 08/14/24 16:45 Respiratory Rate 20 08/14/24 16:45 Blood Pressure 125/77 08/14/24 16:45 Pulse Oximetry 100 08/14/24 16:45 Oxygen Delivery Method Room Air 08/14/24 16:45 Medical Decision Making MDM Narrative Medical decision making narrative: This patient comes in reporting a syncopal event as described above. I recommended checking labs and EKG. EKG shows normal sinus rhythm. Labs have now returned but I went back into the room and saw that she had left. I heard from the nurse that she was tired of waiting and felt like nobody was taking care of her. I did not get to conclude my visit with her. Her labs did all returned with normal findings. She stated earlier that she does have a follow-up appointment with a dietary server here later this month. Lab Data Labs: Lab Results 08/14/24 Range/Units 17:25 WBC 7.71 (4.50-11.00) K/uL RBC 4.37 (4.00-5.20) m/uL Hgb 12.4 (12.0-16.0) gm/dL Hct 38.6 (33.0-51.0) % MCV 88 (80-100) fL MCH 28 (26-34) pg MCHC 32 (32-36) gm/dL RDW Coeff of Jackelyn 14.7 (11.5-15.5) % Plt Count 298 (140-440) K/uL Neut % (Auto) 71.9 (42.0-72.0) % Lymph % (Auto) 18.9 L (20-44) % [place] % (Auto) 6.7 (0.0-11.0) % Eos % (Auto) 2.1 (0.0-7.0) % Baso % (Auto) 0.3 (0.0-3.0) % Neut # (Auto) 5.54 (1.7-7.0) K/uL Lymph # (Auto) 1.50 (0.90-2.90) K/uL [place] # (Auto) 0.50 (0.00-0.90) K/UL Eos # (Auto) 0.16 (0.00-0.50) K/uL Baso # (Auto) 0.02 (0.00-0.30) K/uL Abs Immat Gran (auto) 0.01 (0.00-0.30) K/uL Imm/Tot Granulo (auto) 0.1 % Sodium 138 (135-149) mmol/L Potassium 4.0 (3.6-5.1) mmol/L Chloride 103 (96-114) mmol/L Carbon Dioxide 26 (20-32) mmol/L Anion Gap 9 (7-15) mEq/L BUN 23 (5-24) mg/dL Creatinine 0.6 (0.5-1.5) mg/dL Estimated GFR 110 ml/min Glucose 100 (60-115) mg/dL Calcium 9.0 (8.4-10.6) mg/dL Total Bilirubin 0.2 (0.1-1.5) mg/dL Direct Bilirubin 0.2 (0.0-0.5) mg/dL AST 22 (12-35) U/L ALT 19 (4-35) U/L Alkaline Phosphatase 61 (40-150) U/L C-Reactive Protein < 0.5 L (0.5-1.0) mg/dL Total Protein 7.4 (6.0-8.3) g/dL Albumin 4.5 (3.3-5.0) g/dL Free T4 1.01 (0.70-1.85) ng/dL ECG Data Attestation: I personally reviewed and interpreted this ECG as follows: Interpretation: Normal sinus rhythm. Rate is 69 beats per minute. There are no ST or T-wave abnormalities. Discharge Plan Discharge Clinical Impression: Syncope Patient Disposition: Home, Self-Care Condition: Stable Prescriptions: No Action sertraline 100 mg tablet 100 mg PO QDAY Qty: 90 1RF trazodone 50 mg tablet 50 - 100 mg PO QHS PRN (Reason: insomnia) Qty: 60 5RF dextroamphetamine-amphetamine [Adderall] 10 mg tablet 10 mg PO BID Qty: 60 0RF Rx Instructions: administer doses at least 4-6 hours apart dextroamphetamine-amphetamine [Adderall] 10 mg tablet 10 mg PO BID Qty: 60 0RF Rx Instructions: administer doses at least 4-6 hours apart dextroamphetamine-amphetamine [Adderall] 10 mg tablet 10 mg PO BID Qty: 60 0RF Rx Instructions: administer doses at least 4-6 hours apart estradiol 0.075 mg/24 hr patch semiweekly 1 patch transdermal 2XW Qty: 8 12RF Rx Instructions: apply 1 patch for 3 days alternating with 1 patch for 4 days each week for 3 wks per 4-wk cycle progesterone micronized [Prometrium] 100 mg capsule 100 mg PO QHS Qty: 90 4RF estradiol [Estrace] 0.01 % (0.1 mg/gram) cream 0.5 g vaginal 2XW Qty: 42.5 3RF Rx Instructions: Use nightly for 2 weeks, then twice weekly. May apply with finger. testosterone 50 mg/5 gram (1 %) gel 5 mg transdermal QAM Qty: 150 0RF Rx Instructions: Use 4 drops / day to skin of skin of upper outer thigh or buttock. racepinephrine 2.25 % solution for nebulization 0.5 ml inhalation Q2H PRN (Reason: laryngospasm/throat tightness) Qty: 6 1RF Rx Instructions: dilute in 3 mL saline and administer via nebulizer over 15 mins albuterol sulfate 90 mcg/actuation HFA aerosol inhaler 2 inh inhalation Q2-3H PRN (Reason: Wheeze) Qty: 8.5 2RF Rx Instructions: Use with spacer if possible epinephrine [EpiPen 2-Ren] 0.3 mg/0.3 mL auto-injector 0.3 ml IM Q5-15M PRNQty: 2 0RF Rx Instructions: do not exceed 3 doses per episode (DME) Dexcom G6 Sensor Device See Rx Instructions .Route Qty: 9 1RF Rx Instructions: Change every 10 days (DME) Dexcom G6 Transmitter Device See Rx Instructions .Route Qty: 1 3RF Rx Instructions: Change every 3 months Ozempic 2 mg/dose (8 mg/3 mL) pen injector 2 mg subcut QWEEK Qty: 3 2RF ondansetron 8 mg tablet,disintegrating 8 mg PO Q8H PRN (Reason: nausea and vomiting) Qty: 30 1RF Follow Up/Referrals: Misael Hobbs MD [Primary Care Provider] - Stand Alone Forms: [employer] Info Instructions
[2024-08-14 17:51] LABS: Basophils Absolute Auto 0.02 K/uL (0.00-0.30); Basophils Percent Auto 0.3 % (0.0-3.0); Eosinophils Absolute Auto 0.16 K/uL (0.00-0.50); Eosinophils Percent Auto 2.1 % (0.0-7.0); Hematocrit 38.6 % (33.0-51.0); Hemoglobin* 12.4 gm/dL (12.0-16.0); Immature Granulocytes Abs Auto 0.01 K/uL (0.00-0.30); Immature Granulocytes Pct Auto 0.1 %; Lymphocytes Percent Auto 18.9 % (20-44); Mean Corpuscular HGB Conc 32 gm/dL (32-36); Mean Corpuscular Hemoglobin 28 pg (26-34); Mean Corpuscular Volume 88 fL (80-100); Monocytes Percent Auto 6.7 % (0.0-11.0); Neutrophils Absolute Auto 5.54 K/uL (1.7-7.0); Neutrophils Percent Auto 71.9 % (42.0-72.0); Platelet Count* 298 K/uL (140-440); RDW Coefficient of Variation % 14.7 % (11.5-15.5); Red Blood Count 4.37 m/uL (4.00-5.20); Slide Review Reflex No; White Blood Count* 7.71 K/uL (4.50-11.00)
[2024-08-14 17:59] LABS: Albumin* 4.5 g/dL (3.3-5.0); Chloride* 103 mmol/L (96-114); Sodium* 138 mmol/L (135-149)
[2024-08-14 18:01] LABS: Blood Urea Nitrogen* 23 mg/dL (5-24); Creatinine* 0.6 mg/dL (0.5-1.5); Estimated Glomerular Filt Rate 110 ml/min
[2024-08-14 18:02] LABS: Alanine Aminotransferase* 19 U/L (4-35); Alkaline Phosphatase* 61 U/L (40-150); Anion Gap 9 mEq/L (7-15); Aspartate Amino Transferase* 22 U/L (12-35); Bilirubin Direct* 0.2 mg/dL (0.0-0.5); Bilirubin Total* 0.2 mg/dL (0.1-1.5); Carbon Dioxide* 26 mmol/L (20-32); Glucose* 100 mg/dL (60-115); Total Protein* 7.4 g/dL (6.0-8.3)
[2024-08-14 18:30] LABS: C Reactive Protein* < 0.5 mg/dL (0.5-1.0)
[2024-08-14 19:23] LABS: Free T4 Free Thyroxine* 1.01 ng/dL (0.70-1.85)
[2024-08-14 19:37] LABS: Thyroid Stimulating Hormone* 0.581 uIU/mL (0.270-4.20)
--- NOTE | 2024-08-14 19:37 | ED.NURSE ---
Patient's IV removed, she was requesting to leave. Patient departed ER without instructions of lab results
== END 2024-08-14 19:38 | disposition home or self-care (01) ==
PROVIDERS: Emergency Provider Emergency Medicine Emergency Medical Services; PCP Family Medicine
DX: R55 Syncope and collapse (principal)
CPT/HCPCS: 36415; 80048; 80076; 84439; 84443; 84484; 85025; 86140; 93005; 99284

== ENCOUNTER 2024-08-18 14:30 | Outpatient (CLI) | payer BC, SELFPAY | END 2024-08-18 14:31 | disposition home or self-care (01) | LOC: CT 14:30 | PROVIDERS: PCP Family Medicine; Visit Provider Family Medicine | DX: R10.9 Unspecified abdominal pain (principal); N28.89 Other specified disorders of kidney and ureter; M43.17 Spondylolisthesis, lumbosacral region; Z87.442 Personal history of urinary calculi | CPT/HCPCS: 74176 ==

== ENCOUNTER 2024-08-27 08:19 | Outpatient (CLI) | payer BC, SELFPAY | END 2024-08-27 08:20 | disposition home or self-care (01) | LOC: NFLDREF 08-29 04:22 | PROVIDERS: PCP Family Medicine; Referring Provider Family Medicine; Visit Provider Obstetrics & Gynecology | DX: F52.0 Hypoactive sexual desire disorder (principal); Z86.2 Personal history of diseases of the blood and blood-forming organs and certain disorders involving the immune mechanism | CPT/HCPCS: 83540; 83550; 84270; 84402; 84403 ==

== ENCOUNTER 2024-09-11 09:33 | Emergency (ER) | payer OTHER, BC, SELFPAY ==
[2024-09-11] VITALS (15 sets, daily range): BP systolic 94–136; BP diastolic 56–78; PULSE 84–104; RESP 12–24; TEMP 36.5; O2SAT 93–99; BMI 27.3
--- OUTSIDE RECORDS SUMMARY | 2024-09-11 09:35 | XMS_ITS | Clinical Summary ---
Author Organization [employer] [facility] Address [address] [place] [id number] Care Team Providers Care Outsole Beveler Name Role Phone Card, Jeff Brantley MD [...] syndrome with acute exacerbation 06/09/2015 12/14/2015 Immunizations Immunization Administration Dates Next Due Hepatitis B (Adult) [...] on file Legal Sex Female 6:46 AM [employer] Gender Identity Not on file Sexual Orientation [...] series (2023- season) 2024 12/03/2020, 11/11/2020 Influenza Vaccine (#1) 2024 8, 04/10/2016, 03/24/2015, Additional history exists Pap [...] 16 Negative Negative 10/20/2021 10:50 AM CDT [facility] TYPE 18 Negative Negative 10/20/2021 10:50 AM CDT [facility] OTHER HIGH RISK TYPES Negative Negative 10/20/2021 10:50 AM CDT [facility] Other (Cervical/Vagina l) 10/17/2021 12:00 PM CDT 10/19/2021 7:56 AM CDT Narrative [facility] - 10/20/2021 10:50 AM CDT HPV types 16, 18, 31, 33, 35, 39, 45, 51, 52, 56, 58, 59, 66 and 68 DNA were undetectable or below the pre-set threshold. Methodology: Gianni Kesha 4800 HPV Test us Aminta Razo MD MICROBIOLOGY Final Resu lt [facility] [address] [place] [address], [place] * (ABNORMAL) LIPID PANEL W REFLEX MEASURED LDL (10/18/2020 2:58 PM CDT) CHOLESTEROL,TOTAL 300(H) 100 - 199 mg/dL 10/18/2020 11:55 PM CDT [facility] TRIGLYCERIDES 297(H) <150 mg/dL 10/18/2020 11:55 PM CDT [facility] HDL CHOLESTEROL 60 >40 mg/dL 11:55 PM CDT [facility] NON-HDL CHOLESTEROL 240(H) <145 mg/dl 10/18/2020 11:55 PM CDT [facility] CHOL/HDL RATIO 5.00(H) <4.50 10/18/2020 11:55 PM CDT [facility] LDL CHOLESTEROL 181(H) <=130 mg/dL 10/18/2020 11:55 PM CDT [facility] VLDL CHOLESTEROL 59 mg/dL 10/19/19 11:55 PM CDT [facility] PROVIDER ORDERED STATUS RANDOM 10/18/2020 11:55 PM CDT [facility] Blood BLOOD SPECIMEN / Unknown Venipuncture / Unknown 10/18/2020 2:58 PM CDT 10/18/2020 2:58 PM CDT us Debby Mar DO CHEMISTRY Final Result [facility] [address] [place] [address], [place] from Last 3 Months or Most Recently Relevant to Health Maintenance Insurance [employer] Care Teams Outsole Beveler Relationship Specialty Start Date End Date Card, Jeff Brantley MD 06/07/15
--- OUTSIDE RECORDS SUMMARY | 2024-09-11 09:35 | XMS_ITS | Clinical Summary ---
Author Organization [facility] Address [address], [place] [address] Care Team Providers Care Risk Control Field Representative Name Role Phone No Primary/Referring, Phy Primary Care Provider Unavailable Source Comments You are receiving this document as you are listed as the primary care provider,follow-up provider, or the patient has been referred to you for consultation.This is in compliance with the Medicare and[facility] E[facility] Incentive [facility],which states Providers who transition their patient to another setting of careor provider of care or refers their patient to another provider of care shouldprovide summary care record for each transition of care or referral. Qonf Allergies Active Allergy Reactions Criticality Noted Date Comments Bee Venom Hives,Swelling High 10/26/2015 Codeine Nausea And Vomiting Low 07/08/2010 makes me crazy Latex Hives,Rash High 01/13/2011 Rash, Hives, skin peels off Morphine Anaphylaxis,Edema,ge ner alized,Hives,Rash,Swell ing High 01/12/2011 Ondansetron Hives High 11/17/2007 Prochlorperazine Other, see comments Low 11/17/2007 anxiety Metoclopramide Other, see comments 10/16/2019 Makes her crazy Sumatriptan Anaphylaxis,Hives High 11/17/2007 Neck swelling Medications * This document contains information received from the source organization and may not represent a complete record from that organization. Respiratory Therapy Supplies (NEBULIZER) device Nebulizer, neb kit, neb cup, tubing and mask. Duration of need 99 months. 6 Active drug not in computer OXIMETER 6 Active MULTIPLE VITAMINS-MINERA LS ER ORIndications:A norexia,Binge eating,Controll ed type 2 diabetes mellitus without complication, without long-term current use of insulin (HRC) Take 1 Tablet by mouth. Active ALBUterol sulfate HFA 108 (90 Base) MCG/ACT inhaler Inhale 2 Puffs 4 times daily as needed. 5 Active Blood Glucose Monitoring Suppl (ACCU-CHEK GUIDE) w/Device KITIndications: Controlled type 2 diabetes mellitus without complication, without long-term current use of insulin (HRC) TEST4 TIMES A DAY 0 Active Blood Glucose Monitoring Suppl (ACCU-CHEK TITA CONNECT) w/Device KITIndications: Controlled type 2 diabetes mellitus without complication, without long-term current use of insulin (HRC) Use 1 Kit. 0 Active budesonide (PULMICORT) 0.5 MG/2ML inhalation suspension Inhale 0.5 mg two times daily as needed. 6 Active cholecalciferol (VITAMIN D3) 125 MCG (5000 UT)Indications: Memory impairment TAKE TWO CAPSULES DAILY WITH BREAKFAST 0 Active Continuous Blood Gluc Emulsion Coater (FREESTYLE RENEE 14 DAY READER) DEVIIndications :Controlled type 2 diabetes mellitus without complication, without long-term current use of insulin (HRC) 1 EACH 4 TIMES A DAY 0 Active Continuous Blood Gluc Sensor (FREESTYLE RENEE 14 DAY SENSOR) MISCIndications :Controlled type 2 diabetes mellitus without complication, without long-term current use of insulin (HRC) USE DIRECTED FOUR TIMES DAILY AND CHANGE every 14 DAYS 0 Active Continuous Blood Gluc Sensor (FREESTYLE RENEE 14 DAY SENSOR) MISCIndications :Controlled type 2 diabetes mellitus without complication, without long-term current use of insulin (HRC) Use 1 Each. 0 Active fluticasone propionate (FLONASE) 50 MCG/ACT nasal solution USE TWO SPRAYS IN EACH NOSTRIL EVERY DAY 0 Active fluticasone-solomon meterol (ADVAIR) 500-50 MCG/DOSE diskus inhaler Inhale 1 Puff. 5 Active ACCU-CHEK TITA PLUS test stripIndication s:Controlled type 2 diabetes mellitus without complication, without long-term current use of insulin (HRC) USE TO TEST 4 TIMES A DAY AND NEEDED (FOR FLUCTUATING BLOOD SUGARS.) 0 Active blood glucose (ACCU-CHEK TITA PLUS) test stripIndication s:Controlled type 2 diabetes mellitus without complication, without long-term current use of insulin (HRC) Use 1 Strip. 0 Active hydrOXYzine HCl (ATARAX) 10 MG tabletIndicatio ns:Memory impairment Take 10 mg by mouth three times a day. 0 Active ipratropium-alb uterol (DUONEB) 0.5-2.5 (3) mg/3ml nebulizer solution 1 neb as needed 5 Active levonorgestrel (MIRENA) 20 MCG/24HR IUD 1 Each by Intrauterine route once. Active atorvastatin (LIPITOR) 10 MG tablet Take 1 Tablet by mouth daily. 90 Tablet 4 0 Active metFORMIN XR (GLUCOPHAGE XR) 750 MG 24 hour release tablet Take 1 Tablet by mouth every evening with a meal. 90 Tablet 3 0 Active topiramate (TOPAMAX) 25 MG tablet TAKE 1 TABLET BY MOUTH TWICE A DAY 180 Tablet 0 Active Active Problems Problem Noted Date Diagnosed Date Acquired deflected nasal septum 02/02/2021 Overview (02/02/2021): Added automatically from request for surgery [id number] Nasal obstruction 02/02/2021 Overview (02/02/2021): Added automatically from request for surgery [id number] Nasal valve collapse 02/02/2021 Overview (02/02/2021): Added automatically from request for surgery [id number] Mixed hyperlipidemia 10/20/2019 MERCEDES (stress urinary incontinence, female) 2019 Acute lumbar radiculopathy 12/09/2018 Neural foraminal stenosis of lumbar spine 2018 Diabetes type 2, uncontrolled 07/12/2017 Bipolar affective disorder, current episode mixed, without psychotic features 10/17/2016 Ovarian cyst, left 04/15/2016 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 IUD (intrauterine device) in place Overview (10/16/2019): for anemia placed in 2016 or 2017, has had vasectomy Resolved Problems Problem Noted Date Diagnosed Date Resolved Date Urinary tract infection 01/07/201410/2019 Recurrent UTI 01/06/2014 04/15/2020 Diabetes mellitus in 10/11/2010 10/16/2019 Encounter for supervision of other normal 09/27/2010 10/16/2019 History of delivery, currently 08/02/2010 10/16/2019 Immunizations Immunization Administration Dates Next Due Flu Vac (3+ yrs) 03/24/2015, 3,03/28/2011,2009,03/04/2009,03/11/2007 Fluzone Qiv Multidose Vial 0 .25 (6-35 Mos) 03/16/2014 HepB Adult (Engerix-B, 20+ y rs, 3 dose series) 02/20/2008,03/20/2007 HepB Ped/Adol (0-18 yrs) 06/11/1999 Influenza IIV4 (Quadrivalent ) 0.5mL (64254) 04/16/2018,04/10/2016 Influenza, Unspecified Formulation 03/24/2015,,03/11/2007 MMR 03/20/2007 Pfizer Monovalent 12+ Purple Top 12/03/2020,06/0 08/2020 Td 06/11/2005 Tdap 03/30/2011 Family History Medical History Relation Name Comments Diabetes, Type II Father Diabetes, Type II Mother Heart Disease Negative Family History Relation Name Status Comments Father Alive Mother Alive Social History Tobacco Use Types Packs/Day Years Used Date Smoking Tobacco: Never Smokeless Tobacco: Never Alcohol Use Standard Drinks/Week Comments Yes 0 (1 standard drink = 0.6 oz pur e alcohol) social AUDIT-C Answer Date Recorded Frequency of Alcohol Consumption 2-4 times a mon th 10/16/2019 Average Number of Drinks 1 or 2 020 Frequency of Binge Drinking Not on file 12/2019 Comments Unknown Sex and Gender Information Value Date Recorded Sex Assigned at Not on file Legal Sex Female 2:56 PM CDT Gender Identity Not on file Sexual Orientation Not on file 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 Not on file Not on file 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 Not on file Not on file Not on file Plan of Treatment Health Maintenance Due Date Last Done Comments Colon Cancer Screening Plan Due 1974 Diabetes: Eye Exam 1974 Diabetes: Foot Exam 1974 Hep C Screening (Preventive Services) 1974 Mammogram 1974 Adult Preventive Visit 1992 Pneumococcal (1 of 2 - PCV) 1993 HepB (3) 04/16/2008 02/20/2008, 03/11, 06/11/1999 Cervical Cancer Screening 12/23/20182013 (Completed), 07/08/2010 (Completed) Diabetes: Creatinine 07/21/2020 07/21/2019 (Complete d) Diabetes: Urine Microalbumin 07/21/2020 07/21/2019 ( Completed) DTaP/Tdap/Td (2 - Tdap) 03/30/2021 03/30/2011, 06/11 Diabetes: HGBA1C 04/20/2021 10/18/2020, 03/2020, 07/21/2019 (Completed) COVID-19 Vaccine ( season) 2024 12/03/2020, 11/11/2020 Influenza (#1) 2024 04/16/2018, 03/13, 03/24/2015, Additional history exists Diabetes: Lipid Panel 07/21/2024 07/21/2019 (Complet ed) Zoster/Shingles (1 of 2) 2024 HIV Screening (Preventive Services) Completed 07/08/2010 (Completed) HepA Aged Out No longer eligi ble based on patient's age to complete this topic Hib Aged Out No longer eligi ble based on patient's age to complete this topic IPV (Polio) Aged Out No longer eligi ble based on patient's age to complete this topic MCV4 Aged Out No longer eligi ble based on patient's age to complete this topic Meningococcal B Aged Out No longer el igible based on patient's age to complete this topic Insurance FULLY INSURED FULLY INSURED Care Teams Risk Control Field Representative Relationship Specialty Start Date End Date No Primary/Referring, Phy PCP - General 10/16/19
[2024-09-11] MEDS: METHYLPREDNISOLONE SOD SUCC 62.5 MG/ML (125) 125 MG IVP (09:57)
[2024-09-11] MEDS: diphenhydrAMINE 25 MG in 0.9 % SODIUM CHLORIDE 100 ml 100 ML 301.5 MG IVPB (09:58)
[2024-09-11] MEDS: 0.9 % SODIUM CHLORIDE 1000 ml 1,000 ML IV ×2 (10:01→13:23)
[2024-09-11] MEDS: ALBUTEROL SULFATE 2.5 MG/3 ML VIAL.NEB NEB (10:05)
[2024-09-11] MEDS: LORazepam 2 MG/ML inj 0.5 MG IVP ×2 (10:05→13:33)
[2024-09-11 10:09] LABS: Basophils Absolute Auto 0.05 K/uL (0.00-0.30); Basophils Percent Auto 0.6 % (0.0-3.0); Eosinophils Absolute Auto 0.18 K/uL (0.00-0.50); Eosinophils Percent Auto 2.1 % (0.0-7.0); Hematocrit* 38.3 % (33.0-51.0); Hemoglobin* 12.4 gm/dL (12.0-16.0); Lymphocytes Percent Auto 32.8 % (20-44); Mean Corpuscular HGB Conc 32 gm/dL (32-36); Mean Corpuscular Hemoglobin 28 pg (26-34); Mean Corpuscular Volume 87 fL (80-100); Monocytes Percent Auto 8.7 % (0.0-11.0); Neutrophils Absolute Auto 4.76 K/uL (1.7-7.0); Neutrophils Percent Auto 55.8 % (42.0-72.0); Platelet Count* 360 K/uL (140-440); RDW Coefficient of Variation % 14.1 % (11.5-15.5); Red Blood Count* 4.38 m/uL (4.00-5.20); White Blood Count* 8.53 K/uL (4.50-11.00)
[2024-09-11 10:15] LABS: Slide Review Reflex No
[2024-09-11 10:18] LABS: Chloride* 100 mmol/L (96-114); Potassium* 3.3 mmol/L (3.6-5.1); Sodium* 136 mmol/L (135-149)
[2024-09-11 10:21] LABS: Anion Gap 10 mEq/L (7-15); Blood Urea Nitrogen* 18 mg/dL (5-24); Calcium* 9.5 mg/dL (8.4-10.6); Carbon Dioxide* 26 mmol/L (20-32); Creatinine* 0.7 mg/dL (0.5-1.5); Est. Creatinine Clearance* 69.83; Estimated Glomerular Filt Rate 106 ml/min; Glucose* 144 mg/dL (60-115)
--- OUTSIDE RECORDS SUMMARY | 2024-09-11 10:40 | XMS_ITS | Clinical Summary ---
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 Gender Identity Not on file Sexual Orientation [...] 16 Negative Negative 10/20/2021 10:50 AM CDT [facility] TYPE 18 Negative Negative 10/20/2021 10:50 AM CDT [facility] OTHER HIGH RISK TYPES Negative Negative 10/20/2021 10:50 AM CDT [facility] Other (Cervical/Vagina l) 10/17/2021 12:00 PM CDT 10/19/2021 7:56 AM CDT Narrative [facility] - 10/20/2021 10:50 AM CDT HPV types 16, 18, 31, 33, 35, 39, 45, 51, 52, 56, 58, 59, 66 and 68 DNA were undetectable or below the pre-set threshold. Methodology: Gianni Kesha 4800 HPV Test us Aminta Razo MD MICROBIOLOGY Final Resu lt [facility] [address] [place] [address], [place] * (ABNORMAL) LIPID PANEL W REFLEX MEASURED LDL (10/18/2020 2:58 PM CDT) CHOLESTEROL,TOTAL 300(H) 100 - 199 mg/dL 10/18/2020 11:55 PM CDT [facility] TRIGLYCERIDES 297(H) <150 mg/dL 10/18/2020 11:55 PM CDT [facility] HDL CHOLESTEROL 60 >40 mg/dL 11:55 PM CDT [facility] NON-HDL CHOLESTEROL 240(H) <145 mg/dl 10/18/2020 11:55 PM CDT [facility] CHOL/HDL RATIO 5.00(H) <4.50 10/18/2020 11:55 PM CDT [facility] LDL CHOLESTEROL 181(H) <=130 mg/dL 10/18/2020 11:55 PM CDT [facility] VLDL CHOLESTEROL 59 mg/dL 10/19/19 11:55 PM CDT [facility] PROVIDER ORDERED STATUS RANDOM 10/18/2020 11:55 PM CDT [facility] Blood BLOOD SPECIMEN / Unknown Venipuncture / Unknown 10/18/2020 2:58 PM CDT 10/18/2020 2:58 PM CDT us Debby Mar DO CHEMISTRY Final Result [facility] [address] [place] [address], [place] from Last 3 Months or Most Recently Relevant to Health Maintenance Insurance [employer] Care Teams Tower Excavator Operator Relationship Specialty Start Date End Date Card, Jeff Brantley MD 06/07/15
--- OUTSIDE RECORDS SUMMARY | 2024-09-11 10:40 | XMS_ITS | Clinical Summary ---
Author Organization [facility] Address [address], [place] [address] Care Team Providers Care Hardness Tester Name Role Phone No Primary/Referring, Phy Primary Care Provider Unavailable Source Comments You are receiving this document as you are listed as the primary care provider,follow-up provider, or the patient has been referred to you for consultation.This is in compliance with the Medicare and[facility],which states Providers who transition their patient to another setting of careor provider of care or refers their patient to another provider of care shouldprovide summary care record for each transition of care or referral. GetThis Allergies Active Allergy Reactions Criticality Noted Date [...] WITH BREAKFAST 0 Active Continuous Blood Gluc Telesales Advisor (FREESTYLE RENEE 14 DAY READER) DEVIIndications :Controlled [...] (02/02/2021): Added automatically from request for surgery [id number] Nasal obstruction 02/02/2021 Overview (02/02/2021): Added automatically from request for surgery [id number] Nasal valve collapse 02/02/2021 Overview (02/02/2021): Added automatically from request for surgery [id number] Mixed hyperlipidemia 10/20/2019 MERCEDES (stress urinary incontinence, [...] yrs) 06/11/1999 Influenza IIV4 (Quadrivalent ) 0.5mL (73805) 04/16/2018,04/10/2016 Influenza, Unspecified Formulation 03/24/2015,,03/11/2007 MMR 03/20/2007 [...] 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
--- NOTE | 2024-09-11 10:46 | ED_ITS ---
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 She has had previous problems with anaphylaxis secondary to exposure to substances like this. She gave herself an EpiPen shot into her right thigh. And presented over here to the emergency room. She tells me in the past she has had problems with 20 years ago intubations secondary to anaphylaxis to exposure. She denies a problem with breathing shortness of breath she says she just feels she can not talk. Denies a feeling she is going to pass out she has no nausea no vomiting, she has noted no rash associated with this. MD complaint: allergic reaction Onset (ago): hour(s) Exposure: other Symptoms: hoarseness Severity: moderate Treatment prior to arrival: epinephrine Previous Allergic Reaction History: prior ED visit(s), anaphylaxis and intubation Related Data Previous Rx's ?Medication ?Instructions ?Recorded albuterol sulfate 90 mcg/actuation 2 inh inhalation Q2-3H PRN Wheeze 02/20/23 aerosol inhaler #8.5 grams epinephrine 0.3 mg/0.3 mL 0.3 ml IM Q5-15M PRN #2 ea 02/20/23 injection, auto-injector (EpiPen 2-Ren) racepinephrine 2.25 % solution for 0.5 ml inhalation Q2H PRN 02/20/23 nebulization laryngospasm/throat tightness #6 ea blood-glucose sensor (Dexcom G6 #9 ea 04/07/24 Sensor device) blood-glucose transmitter (Dexcom #1 ea 05/22/24 G6 Transmitter device) dextroamphetamine-amphetamine 10 10 mg PO BID #60 tabs 06/30/24 mg tablet (Adderall) sertraline 100 mg tablet 100 mg PO QDAY #90 tabs 06/30/24 trazodone 50 mg tablet 50 - 100 mg (1 - 2 x 50 mg) PO QHS 06/30/24 PRN insomnia #60 tabs estradiol 0.01% (0.1 mg/gram) 0.5 g vaginal 2XW #42.5 grams 07/09/24 vaginal cream (Estrace) estradiol 0.075 mg/24 hr 1 patch transdermal 2XW #8 ea 07/09/24 semiweekly transdermal patch progesterone micronized 100 mg 100 mg PO QHS #90 caps 07/09/24 capsule (Prometrium) testosterone 50 mg/5 gram (1 %) 5 mg transdermal QAM #150 grams 07/09/24 transdermal gel ondansetron 8 mg disintegrating 8 mg PO Q8H PRN nausea and 07/12/24 tablet vomiting #30 tabs oxycodone 5 mg tablet 5 mg PO Q6H PRN pain #4 tabs 08/18/24 tamsulosin 0.4 mg capsule 0.4 mg PO QDAY #30 caps 08/19/24 dextroamphetamine-amphetamine 10 10 mg PO QAM #30 tabs 08/24/24 mg tablet (Adderall) dextroamphetamine-amphetamine 10 10 mg PO QPM #30 tabs 08/24/24 mg tablet (Adderall) semaglutide 2 mg/dose (8 mg/3 mL) 2 mg (0.75 mL) subcut QWEEK #3 mL 08/25/24 subcutaneous pen injector (Ozempic) epinephrine 0.3 mg/0.3 mL 0.3 mg (0.3 mL) IM Q5-15M PRN #2 ea 09/11/24 injection, auto-injector lorazepam 0.5 mg tablet (Ativan) 0.5 mg PO TID PRN #10 tabs 09/11/24 prednisone 20 mg tablet 20 mg PO BID #10 tabs 09/11/24 Allergies Allergy/AdvReac Type Severity Reaction Status Date / Time latex Allergy Severe Verified 09/04/24 08:36 morphine Allergy Severe Verified 09/04/24 08:36 sumatriptan Allergy Severe Unknown Verified 09/04/24 08:36 metoclopramide Allergy Mild Unknown Verified 09/04/24 08:36 nickel Allergy Mild Unknown Verified 09/04/24 08:36 prochlorperazine Allergy Mild Unknown Verified 09/04/24 08:36 Review of Systems Status of ROS Reports: 10 or more systems reviewed and unremarkable except as noted in History and below PFSH PFSH Medical History Diabetes ?E11.9 - Type 2 diabetes mellitus without complications (ICD-10) CHEKO (generalized anxiety disorder) ?F41.1 - Generalized anxiety disorder (ICD-10) Rotator cuff tear, left ?M75.102 - Unspecified rotator cuff tear or rupture of left shoulder, not specified as traumatic (ICD-10) Mixed hyperlipidemia ?E78.2 - Mixed hyperlipidemia (ICD-10) ADHD, predominantly inattentive type ?F90.0 - Attention-deficit hyperactivity disorder, predominantly inattentive type (ICD-10) Type 2 diabetes mellitus without complication, with no history of insulin use ?E11.9 - Type 2 diabetes mellitus without complications (ICD-10) Perimenopausal symptoms ?N95.1 - Menopausal and female climacteric states (ICD-10) MERCEDES (stress urinary incontinence, female) ?N39.3 - Stress incontinence (female) (male) (ICD-10) Greater trochanteric bursitis of right hip ?M70.61 - Trochanteric bursitis, right hip (ICD-10) History of anemia ?Z86.2 - Personal history of diseases of the blood and blood-forming organs and certain disorders involving the immune mechanism (ICD-10) Surgical History History of midurethral sling procedure ?Z98.890 - Other specified postprocedural states (ICD-10) S/P hemorrhoidectomy ?Z98.890 - Other specified postprocedural states (ICD-10) ?Z87.19 - Personal history of other diseases of the digestive system (ICD-10) History of appendectomy ?Z90.49 - Acquired absence of other specified parts of digestive tract (ICD- 10) History of endometrial ablation (11/08/21) ?Z98.890 - Other specified postprocedural states (ICD-10) Status post arthroscopy of right shoulder (10/21/20) ?Z98.890 - Other specified postprocedural states (ICD-10) History of laparoscopy (~1990) ?Z98.890 - Other specified postprocedural states (ICD-10) History of bladder suspension procedure ?Z98.890 - Other specified postprocedural states (ICD-10) ?Z87.448 - Personal history of other diseases of urinary system (ICD-10) Status post arthroscopy of left shoulder (01/09/22) ?Z98.890 - Other specified postprocedural states (ICD-10) History of gastric bypass ?Z98.84 - Bariatric surgery status (ICD-10) History of cholecystectomy ?Z90.49 - Acquired absence of other specified parts of digestive tract (ICD- 10) Family History Father Diabetes Paternal Grandmother Diabetes Other Alcohol dependence Breast cancer Colon cancer Depression High cholesterol Osteoporosis Seizure disorder Social History Narrative: , 3 children. Lives in [place]. [employer]. Alcohol occasional. Non-smoker. No illicit drug use. Cross fit and triathlons for exercise What is your current living situation?: I presently have a place to live Problems where you live: no known problems In past 12 months, lack of transportation kept you from medical appts, meetings, work, or getting things needed for daily living: no How hard is it for you to pay for the very basics like food, housing, medical care, and heating: not very hard In the past 12 mos, have been you worried that your food would run out before you had money to buy more?: never true In the past 12 mos, the food you bought just didn't last and you didn't have mo joel to buy more?: never true Smoking Status: Never smoker Do you use any of these nicotine containing products: None How often do you have a drink containing alcohol: monthly or less Alcohol type: beer How many standard drinks containing alcohol do you have on a typical day: 1 or 2 How often do you have six or more drinks on one occasion: Never AUDIT-C Alcohol total score: 1 Non-prescribed substance use: denies use Caffeine: Yes How often does anyone, including family, friends and others, physically hurt you : never How often does anyone, including family, friends and others, insult or talk down to you: never How often does anyone, including family, friends and others, threaten you with harm: never How often does anyone, including family, friends and others, scream or curse at you: never Are you using contraception or practicing any form of control: No service: No Exam Narrative: Exam Narrative: On examination in room 5, she is definitely hoarse when she is talking to me, she looks like she is also little short of breath, with an elevated respiratory rate, she is able to form however pretty full sentences. Alert oriented x3, no drooling, no oropharyngeal swelling noted. Her pupils are equal round reactive to light her neck is supple, a little bit of stridor is noted, when she is breathing in and out. She does not have any expiratory wheezing. Noted heart sounds no clicks murmurs or gallops her abdomen is soft bowel sounds are normal no organomegaly is noted., and her skin reveals no petechiae or rashes noted. She does not appear to be tremulous. Const: Vital Signs, click to edit/add: Vital Signs - 24 hr 09/11/24 09:42 09/11/24 09:46 09/11/24 09:48 Temperature 97.7 F Pulse Rate 103 H Pulse Rate [Pulse Oximeter] 104 H Respiratory Rate 20 24 Blood Pressure 136/70 Blood Pressure [Ri ght Upper Arm] 130/78 Pulse Oximetry 98 99 97 Oxygen Delivery Me thod Room Air 09/11/24 10:02 09/11/24 10:31 09/11/24 11:01 Temperature Pulse Rate 100 86 87 Pulse Rate [Pulse Oximeter] Respiratory Rate 13 14 16 Blood Pressure 115/64 107/61 97/62 Blood Pressure [Ri ght Upper Arm] Pulse Oximetry 98 96 95 Oxygen Delivery Me thod 09/11/24 11:32 09/11/24 12:01 09/11/24 12:31 Temperature Pulse Rate 84 89 91 Pulse Rate [Pulse Oximeter] Respiratory Rate 14 14 14 Blood Pressure 94/62 98/59 L 109/63 Blood Pressure [Ri ght Upper Arm] Pulse Oximetry 93 95 96 Oxygen Delivery Me thod Room Air 09/11/24 13:02 09/11/24 13:32 09/11/24 14:32 Temperature Pulse Rate 92 93 98 Pulse Rate [Pulse Oximeter] Respiratory Rate 15 18 12 Blood Pressure 116/71 100/56 L 99/60 Blood Pressure [Ri ght Upper Arm] Pulse Oximetry 93 99 94 Oxygen Delivery Me thod 09/11/24 15:02 Temperature Pulse Rate 99 Pulse Rate [Pulse Oximeter] Respiratory Rate 14 Blood Pressure 100/61 Blood Pressure [Ri ght Upper Arm] Pulse Oximetry 94 Oxygen Delivery Me thod Room Air Documenting provider has reviewed patient's vital signs: yes Course Reevaluation(s) Time of Reevaluation #1: 10:52 Reevaluation #1: I just checked on her she is speaking better, clearly more in full sentences, after initial treatment. Time of Reevaluation #2: 11:21 Reevaluation #2: Patient is feeling better, little bit cold, her voice is clearly better, still little tachycardic likely from a combination of epinephrine and the albuterol. But overall improving at this point I do not think we need to do a lateral neck x-ray, will continue to follow I explained to her that we will need to watch her for now probably another 3 hours before potential discharge. Time of Reevaluation #3: 12:03 Reevaluation #3: pulse down to 83, sleeping Additional Reevaluation(s): 1:17 p.m.. Patient has a little bit which she describes is stridor now. I recheck her, she clearly has a little change in her voice. Oropharynx remains normal. There is no wheezing and she does not have any obvious stridor when I listen to her. We will try some racemic epi, will give another dose of Ativan. I will try little bit of Protonix. There could be a component with the reflux here also. 4:15 p.m., patient doing well, her voice is basically back to normal at this point, we did have to give her epi about 3 hours ago, but she feels so much better now I had Dr. Karon Weiner in from ENT see her, he says or cords look great. We will discharge her home with the above advice after my discussion with her Vital Signs Vital signs: Initial Vital Signs Pulse Oximetry 98 09/11/24 09:42 Vital Signs Pulse Oximetry 98 09/11/24 09:42 Temperature 97.7 F 09/11/24 09:48 Pulse Rate 99 09/11/24 15:02 Respiratory Rate 14 09/11/24 15:02 Blood Pressure 100/61 09/11/24 15:02 Pulse Oximetry 94 09/11/24 15:02 Oxygen Delivery Method Room Air 09/11/24 15:02 Medications Administered Medications: Generic Name Dose Route Start Last Admin Trade Name Freq PRN Reason Stop Dose Admin Lorazepam 0.5 mg 09/11/24 13:13 09/11/24 13:33 Lorazepam 2 Mg/Ml Inj IVP 0.5 mg Q6H PRN Administration Discontinued Medications Generic Name Dose Route Start Last Admin Trade Name Freq PRN Reason Stop Dose Admin Albuterol 2.5 mg 09/11/24 09:53 09/11/24 10:05 Albuterol Sulfate 2.5 Mg/[address] 09/11/24 09:54 2.5 mg ONCE ONE Administration Diphenhydramine HCl 25 mg 09/11/24 15:16 09/11/24 15:18 Diphenhydramine 25 Mg Capsule PO 09/11/24 15:17 25 mg ONCE ONE Administration Epinephrine 0.5 ml 09/11/24 13:11 09/11/24 13:22 Racepinephrine Hcl 0.[address] 09/11/24 13:12 0.5 ml ONCE ONE Administration Sodium Chloride 1,000 mls @ 1,000 mls/hr 09/11/24 10:00 09/11/24 11:00 0.9 % Sodium Chloride 1000 Ml IV 09/11/24 10:59 Infused .Q1H KAYLIE Infusion Diphenhydramine HCl 25 mg/ 100.5 mls @ 301.5 mls/hr 09/11/24 09:53 09/11/24 10:24 Sodium Chloride IVPB 09/11/24 09:54 Infused ONCE ONE Infusion Sodium Chloride 1,000 mls @ 1,000 mls/hr 09/11/24 13:15 09/11/24 14:25 0.9 % Sodium Chloride 1000 Ml IV 09/11/24 14:14 Infused .Q1H KAYLIE Infusion Lorazepam 0.5 mg 09/11/24 09:54 09/11/24 10:05 Lorazepam 2 Mg/Ml Inj IVP 09/11/24 09:55 0.5 mg ONCE ONE Administration Methylprednisolone Sodium Succinate 125 mg 09/11/24 09:53 09/11/24 09:57 Methylprednisolone Sod Succ 62.5 Mg/Ml (125) IVP 09/11/24 09:54 125 mg ONCE ONE Administration Pantoprazole Sodium 40 mg 09/11/24 13:13 09/11/24 13:33 Pantoprazole Sodium 40 Mg Inj IVP 09/11/24 13:14 40 mg ONCE ONE Administration Prednisone 40 mg 09/11/24 15:16 09/11/24 15:21 Prednisone 20 Mg Tablet PO 09/11/24 15:17 40 mg ONCE ONE Administration MDM - Allergic Reaction MDM Narrative Medical decision making narrative: Life-threatening differential diagnosis includes occluded COPD exacerbation, pulmonary edema, acute coronary syndromes, pulmonary embolism, pneumonia, and pneumothorax. Other differential diagnosis considerations include asthma, bronchitis as well as other etiologies She clearly has had a reaction to something, this likely is stridor an allergic- type reaction, likely to the noxious stimuli that she was exposed to. Will go ahead start an IV, give her albuterol even though that this likely is an lower airway, there is some benefit to this. Give her some Solu-Medrol antihistamines, and just a slight bit of Ativan, I will continue to monitor, and if she is not improving then we will consider a lateral neck x-ray, although I do not think this is aspiration or epiglottitis given the exposure Differential Diagnosis Differential diagnosis: Likely anaphylaxis, allergic reaction, angioedema, contact dermatitis, adverse reaction to drug, viral enanthem and urticaria Medical Records Attestation: I reviewed the patient's medical records. Lab Data Labs: Lab Results 09/11/24 Range/Units 09:42 WBC 8.53 (4.50-11.00) K/uL RBC 4.38 (4.00-5.20) m/uL Hgb 12.4 (12.0-16.0) gm/dL Hct 38.3 (33.0-51.0) % MCV 87 (80-100) fL MCH 28 (26-34) pg MCHC 32 (32-36) gm/dL RDW Coeff of Jackelyn 14.1 (11.5-15.5) % Plt Count 360 (140-440) K/uL Neut % (Auto) 55.8 (42.0-72.0) % Lymph % (Auto) 32.8 (20-44) % Crowley % (Auto) 8.7 (0.0-11.0) % Eos % (Auto) 2.1 (0.0-7.0) % Baso % (Auto) 0.6 (0.0-3.0) % Neut # (Auto) 4.76 (1.7-7.0) K/uL Lymph # (Auto) 2.80 (0.90-2.90) K/uL Crowley # (Auto) 0.70 (0.00-0.90) K/UL Eos # (Auto) 0.18 (0.00-0.50) K/uL Baso # (Auto) 0.05 (0.00-0.30) K/uL Abs Immat Gran (auto) 0.00 (0.00-0.30) K/uL Imm/Tot Granulo (auto) 0.0 % Sodium 136 (135-149) mmol/L Potassium 3.3 L (3.6-5.1) mmol/L Chloride 100 (96-114) mmol/L Carbon Dioxide 26 (20-32) mmol/L Anion Gap 10 (7-15) mEq/L BUN 18 (5-24) mg/dL Creatinine 0.7 (0.5-1.5) mg/dL Estimated Creat Clear 69.83 Estimated GFR 106 ml/min Glucose 144 H (60-115) mg/dL Calcium 9.5 (8.4-10.6) mg/dL POC Troponin I 0.00 L (0.01-0.04) ng/ml ECG Data Attestation: I personally reviewed and interpreted this ECG as follows: ECG interpretation date: 09/11/24 Prior ECG tracings: available for review Interpretation: EKG shows normal sinus rhythm, with a QRS is 78 milliseconds the QT of 388 and a QTC of 458. In comparison to old EKG dated 08/14/2024 EKG is unchanged. Assessment: Normal EKG Discharge Plan Discharge Clinical Impression: Allergic reaction, Anaphylaxis Patient Disposition: Home w/ Parent or Adult Condition: Stable Instructions: General Allergic Reaction (ED), Allergy Testing (ED) Additional Instructions: Home, rest, use of prednisone, 40 mg a day for next 5 days, would recommend Benadryl 25-50 mg q.6h for the 1st couple days for sure, refill your EpiPen, also gave you a little bit of Ativan, which also helps keep other effects of the medications in check. Would recommend follow-up with Allergy as sometimes we can figure out what exactly sets off the allergic reaction in you can undergo desensitization therapy for this. Return if increasing chest pain shortness of breath or other issues. Followup in 5 days with primary care, Activity Level: Light activity Discharge Diet: Regular Prescriptions: New prednisone 20 mg tablet 20 mg PO BID Qty: 10 0RF epinephrine 0.3 mg/0.3 mL auto-injector 0.3 mg IM Q5-15M PRNQty: 2 0RF Rx Instructions: do not exceed 3 doses per episode lorazepam [Ativan] 0.5 mg tablet 0.5 mg PO TID PRNQty: 10 0RF No Action sertraline 100 mg tablet 100 mg PO QDAY Qty: 90 1RF trazodone 50 mg tablet 50 - 100 mg PO QHS PRN (Reason: insomnia) Qty: 60 5RF dextroamphetamine-amphetamine [Adderall] 10 mg tablet 10 mg PO BID Qty: 60 0RF Rx Instructions: administer doses at least 4-6 hours apart estradiol 0.075 mg/24 hr patch semiweekly 1 patch transdermal 2XW Qty: 8 12RF Rx Instructions: apply 1 patch for 3 days alternating with 1 patch for 4 days each week for 3 wks per 4-wk cycle progesterone micronized [Prometrium] 100 mg capsule 100 mg PO QHS Qty: 90 4RF estradiol [Estrace] 0.01 % (0.1 mg/gram) cream 0.5 g vaginal 2XW Qty: 42.5 3RF Rx Instructions: Use nightly for 2 weeks, then twice weekly. May apply with finger. testosterone 50 mg/5 gram (1 %) gel 5 mg transdermal QAM Qty: 150 0RF Rx Instructions: Use 4 drops / day to skin of skin of upper outer thigh or buttock. tamsulosin 0.4 mg capsule 0.4 mg PO QDAY Qty: 30 1RF oxycodone 5 mg tablet 5 mg PO Q6H PRN (Reason: pain) Qty: 4 0RF racepinephrine 2.25 % solution for nebulization 0.5 ml inhalation Q2H PRN (Reason: laryngospasm/throat tightness) Qty: 6 1RF Rx Instructions: dilute in 3 mL saline and administer via nebulizer over 15 mins albuterol sulfate 90 mcg/actuation HFA aerosol inhaler 2 inh inhalation Q2-3H PRN (Reason: Wheeze) Qty: 8.5 2RF Rx Instructions: Use with spacer if possible epinephrine [EpiPen 2-Ren] 0.3 mg/0.3 mL auto-injector 0.3 ml IM Q5-15M PRNQty: 2 0RF Rx Instructions: do not exceed 3 doses per episode (DME) Dexcom G6 Sensor Device See Rx Instructions .Route Qty: 9 1RF Rx Instructions: Change every 10 days (DME) Dexcom G6 Transmitter Device See Rx Instructions .Route Qty: 1 3RF Rx Instructions: Change every 3 months ondansetron 8 mg tablet,disintegrating 8 mg PO Q8H PRN (Reason: nausea and vomiting) Qty: 30 1RF dextroamphetamine-amphetamine [Adderall] 10 mg tablet 10 mg PO QPM Qty: 30 0RF dextroamphetamine-amphetamine [Adderall] 10 mg tablet 10 mg PO QAM Qty: 30 0RF Ozempic 2 mg/dose (8 mg/3 mL) pen injector 2 mg subcut QWEEK Qty: 3 2RF Follow Up/Referrals: Oumar Childers MD [Primary Care Provider] - Stand Alone Forms: [facility] Info Instructions
[2024-09-11] MEDS: RACEPINEPHRINE HCL 0.5 ML VIAL.NEB NEB (13:22)
[2024-09-11] MEDS: PANTOPRAZOLE SODIUM 40 MG INJ IVP (13:33)
[2024-09-11] MEDS: diphenhydrAMINE 25 MG CAPSULE PO (15:18)
[2024-09-11] MEDS: predniSONE 20 MG TABLET 40 MG PO (15:21)
== END 2024-09-11 16:32 | disposition home or self-care (01) ==
PROVIDERS: Emergency Provider Family Medicine; PCP Family Medicine
DX: R06.2 Wheezing (principal); Z91.09 Other allergy status, other than to drugs and biological substances
CPT/HCPCS: 36415; 80048; 84484; 85025; 93005; 94640; 94761; 96365; 96375; 99284; 99285; A9270; J1200; J2060; J2470; J2919; J7030; J7512